=== PATIENT | male | born 1960 | race Caucasian/White ===

== ENCOUNTER 2018-03-31 12:47 | Inpatient (IN) ==
[2018-03-31] MEDS ORDERED: Naloxone 0.4 MG/ML INJ IVP PRN (17:21)
--- NOTE | 2018-03-31 19:31 | Internal Med History&Physical ---
Date of Encounter: 03/31/18 Time of Encounter: 17:00 Internal Medicine - H&P: HPI Chief complaint: Shortness of breath Admitted From: Intrahospital Transfer History of present illness: Patient is a 44-year-old male with past medical history significant for CKD stage III with chronic anemia, O2 dependent COPD who presented from [facility] due to increase and pleural effusions and vascular congestion on chest x-ray. Patient is a very poor historian and cannot give much history. Her labs done at [facility], patient found to have a BNP of 1023 with vascular congestion on chest x-ray in addition to vascular congestion. Patient will be treated for acute on chronic CHF in addition to increase pleural effusions. Past Med Surg Social Fam HX - Past Medical History Medical history: CHF, diabetes, myocardial infarction, renal disease, seizures, other Psychiatric history: no psych history - Past Surgical History Surgical History: non-contributory - Social History Smoking Status: Current some day smoker Smokeless Tobacco Status: No Alcohol use: none Drug use: none - Additional Family History Additional family history: Noncontributory Internal Medicine - H&P: Meds Allopurinol [Zyloprim 100 MG] 100 mg PO DAILY 03/31/18 [History] Atorvastatin [Lipitor] 10 mg PO HS 03/31/18 [History] HYDROcodone/Acet 5/325 mg [[place] 5-325 mg] 1 tab PO BID PRN 03/31/18 [History] Insulin ASPART [NovoLOG] 2 - 12 unit SQ TIDWM 03/31/18 [History] Insulin Degludec [Tresiba Flextouch U-200] 15 unit SQ DAILY 03/31/18 [History] Ipratropium/Albuterol Neb [Duoneb] 3 ml IH Q4HR PRN 03/31/18 [History] LORazepam Oral Conc [Ativan Oral Conc] 0.25 mg PO Q4H PRN 03/31/18 [History] LevETIRAcetam [Spritam] 500 mg PO BID 03/31/18 [History] MORPHINE SUL Oral CONC [Roxanol Oral Conc] 20 mg PO Q2H PRN 03/31/18 [History] Metoprolol Succinate [Toprol Xl] 25 mg PO DAILY 03/31/18 [History] Omeprazole 10 mg PO DAILY 03/31/18 [History] PHENobarbital [Phenobarbital] 16.2 mg PO HS 03/31/18 [History] Spironolactone [Aldactone] 12.5 mg PO DAILY 03/31/18 [History] Tamsulosin [Flomax] 0.4 mg PO BID 03/31/18 [History] 3 Allergy/AdvReac Type Severity Reaction Status Date / Time No Known Allergies Allergy Verified 03/31/18 16:53 All Systems PM: A 10-system review of systems was performed and is negative for pertinent findings except as documented above in the HPI. - Constitutional Vitals: Temp Pulse Resp BP Pulse Ox 97.8 F 97 9 150/79 98 03/31/18 16:21 03/31/18 16:21 03/31/18 16:21 03/31/18 16:21 03/31/18 17:37 General appearance: Present: A&O X 1 - Eye Eye exam: Present: normal appearance - ENT ENT exam: Present: mucous membranes moist - Respiratory Respiratory exam: Present: CTAB. Absent: accessory muscle use, rales, rhonchi, wheezes - Cardiovascular Cardiovascular exam: Present: RRR, +S1, +S2. Absent: diastolic murmur, gallop, rubs, systolic murmur - GI/Abdominal GI/Abdominal exam: Present: normal bowel sounds, soft, no peritoneal signs. Absent: distended, tenderness - Extremities Exam Extremities exam: Present: pedal edema - Expanded Lower Extremities Exam Lower Leg exam: Present: swelling - Neurological Exam Neurological exam: Present: oriented X3 - Psychiatric Psychiatric exam: Present: normal mood - Skin Skin exam: Present: normal color Internal Med - H&P Results - Labs Labs: Cardiac Enzymes 03/31/18 Range/Units 17:50 Troponin I 0.03 (< 0.04) ng/mL - Assessment and plan (1) Dyspnea Current Visit: No Status: Acute Assessment and plan: Patient with dyspnea which could be secondary to pleural effusion versus CHF. Management as below Qualifiers: Dyspnea type: shortness of breath Qualified Code(s): R06.02 - Shortness of breath; R06.00 - Dyspnea, unspecified; R06.01 - Orthopnea (2) Pleural effusion, left Current Visit: No Status: Acute Assessment and plan: Labs done at [facility], patient found to have a BNP of 1023 with vascular congestion on chest x-ray in addition to vascular congestion. Pulmonology has been consulted and appreciate recommendations (3) Congestive heart failure Current Visit: No Status: Acute Assessment and plan: Patient with elevated BNP of 1023 with vascular congestion on chest x-ray Will continue IV diuresis Qualifiers: Heart failure type: unspecified Heart failure chronicity: acute on chronic Qualified Code(s): I50.9 - Heart failure, unspecified (4) CKD (chronic kidney disease) stage 3, GFR 30-59 ml/min Current Visit: Yes Status: Acute Assessment and plan: Will continue to monitor creatinine given IV diuresis (5) Anemia Current Visit: Yes Status: Acute Assessment and plan: Patient with history of chronic anemia Hemoglobin stable at 9.8 Continue to monitor Qualifiers: Chronic kidney disease stage: stage 3 (moderate) Qualified Code(s): N18.3 - Chronic kidney disease, stage 3 (moderate); D63.1 - Anemia in chronic kidney disease (6) DVT prophylaxis Current Visit: Yes Status: Acute Assessment and plan: Subcutaneous heparin - Time Spent With Patient Total time spent is greater than 50% in coordination of care (as documented) at patient's floor/unit and/or counseling patient:
[2018-03-31] MEDS: Furosemide 40 MG/4 ML VIAL IVP SCH (23:23)
[2018-03-31] MEDS: *HR* Heparin 5,000 UNIT/ML VIAL SQ SCH (23:24)
[2018-04-01 00:38] LABS: Basophils % 0.3 %; Hematocrit 30.6 % (37.5-50.1); Hemoglobin 10.2 g/dL (12.9-16.9); Immature Granulocytes % 1.3 % (0-4); Lymphocytes # 0.4 K/mcL (0.6-4.6); Lymphocytes % 5.8 %; Mean Corpuscular HGB Conc 33.3 g/dL (31.6-35.5); Mean Corpuscular Hemoglobin 30.6 pg (28.0-33.3); Mean Corpuscular Volume 91.9 fL (83.0-100.0); Mean Platelet Volume 12.2 fL (9.4-12.4); Monocytes # 0.2 K/mcL (0.0-1.3); Monocytes % 2.7 %; Platelet Count 249 K/mcL (140-400); Red Blood Count 3.33 M/mcL (4.19-5.50); Red Cell Distribution Width 15.8 % (11.5-14.5); Segmented Neutrophils % 89.9 %
[2018-04-01 00:53] LABS: Calcium 8.5 mg/dL (8.6-10.3); Potassium 6.1 mEq/L (3.5-5.1)
[2018-04-01] MEDS: Albuterol 2.5 MG/3 ML NEBULIZER IH PRN ×2 (05:03→13:36)
[2018-04-01] MEDS: *HR* Heparin 5,000 UNIT/ML VIAL SQ SCH ×3 (05:37→20:57)
[2018-04-01] MEDS ORDERED: Ipratropium/Albuterol Neb 3 ML IH PRN (09:34)
[2018-04-01] MEDS ORDERED: INSULIN DEGLUDEC 15 UNIT SQ SCH (09:45)
[2018-04-01] MEDS: Furosemide 40 MG/4 ML VIAL IVP SCH ×2 (10:46→18:13)
[2018-04-01] MEDS: Acetaminophen 325 MG TABLET PO PRN (10:46)
[2018-04-01] MEDS: Spironolactone 25 MG TABLET PO SCH (10:47)
[2018-04-01] MEDS: Metoprolol XL (24 HR) Succ 25 MG TAB.ER.24H PO SCH (10:47)
[2018-04-01] MEDS: levETIRAcetam 250 MG TABLET PO SCH ×2 (10:47→20:57)
[2018-04-01] MEDS ORDERED: *HR* Dextrose 50 % in Water (Syg) 50 ML SYRINGE IVP PRN (11:53)
[2018-04-01] MEDS ORDERED: Dextrose Gel 15 GM/37.5 ML TUBE PO PRN ×2 (11:53)
[2018-04-01] MEDS ORDERED: D5% in Water 1,000 ML IVC PRN (11:53)
[2018-04-01 12:15] LABS: Estimated Average Glucose 189 mg/dl; Hemoglobin A1C 8.2 %
[2018-04-01] MEDS: Ipratropium/Albuterol Neb 3 ML IH SCH ×3 (12:51→22:40)
[2018-04-01] MEDS: Insulin LISPRO 300 UNITS/3 ML VIAL SQ SCH ×4 (14:11→21:00)
[2018-04-01] MEDS: Insulin DETEMIR 100 UNIT/ML X5UNITS SQ SCH (14:11)
[2018-04-01] MEDS: OMEPRAZOLE 10 MG PO SCH (14:12)
--- NOTE | 2018-04-01 14:45 | Pulmonology Consult Note ---
Date of Encounter: 04/01/18 Time of Encounter: 11:00 Assessment and Plan (1) Acute and chronic respiratory failure with hypoxia Current Visit: Yes Status: Acute Patient with increased O2 supplementation and patient clinical presentation and lab profile more consistent with Acute on chronic CHF . (2) Congestive heart failure Current Visit: No Status: Acute Patient presenting with CHF not sure this is diastolic and systolic needs an ECHO to classify the type of hear failure . To continue diuresis as tolerated . Will need cardiology input for heart failure exacerbation . Qualifiers: Heart failure type: unspecified Heart failure chronicity: acute on chronic Qualified Code(s): I50.9 - Heart failure, unspecified (3) Pleural effusion due to CHF (congestive heart failure) Current Visit: Yes Status: Acute Patient has Bilateral pleural effusion most likely secondary to CHF gave option of Thoracentesis Vs Diuresis to patient he wants to try diuresis . Will hold off Thoracentesis for now will continue diuresis . Patient is not in respiratory distress or any significant V/Q mismatch no need of urgent thoracentesis for today . History of Present Illness Consult date: 04/01/18 Requesting physician: Bobby Partida Chief complaint: Shortness of breadth History of present illness: 57 year old male with past medical history significant for COPD , CHF is coming with increasing leg swelling with high BNP , patient is a poor historian not much history was taken per chart review he came from home with increased shortness of breadth with CXR shows increased intersitial markings with bilateral pleural effusion with high BNP admitted for management for Acute on chronic diastolic CHF with pleural effusion . Pulmonary was consulted for Bilateral pleural effusion . Past Med Surg Social Fam HX - Past Medical History Medical history: CHF, diabetes, myocardial infarction, renal disease, seizures, other Psychiatric history: no psych history - Past Surgical History Surgical History: non-contributory - Social History Smoking Status: Current some day smoker Smokeless Tobacco Status: No Alcohol use: none Drug use: none Medications and Allergies Allopurinol [Zyloprim 100 MG] 100 mg PO DAILY 03/31/18 [History] Atorvastatin [Lipitor] 10 mg PO HS 03/31/18 [History] HYDROcodone/Acet 5/325 mg [[place] 5-325 mg] 1 tab PO BID PRN 03/31/18 [History] Insulin ASPART [NovoLOG] 2 - 12 unit SQ TIDWM 03/31/18 [History] Insulin Degludec [Tresiba Flextouch U-200] 15 unit SQ DAILY 03/31/18 [History] Ipratropium/Albuterol Neb [Duoneb] 3 ml IH Q4HR PRN 03/31/18 [History] LORazepam Oral Conc [Ativan Oral Conc] 0.25 mg PO Q4H PRN 03/31/18 [History] LevETIRAcetam [Spritam] 500 mg PO BID 03/31/18 [History] MORPHINE SUL Oral CONC [Roxanol Oral Conc] 20 mg PO Q2H PRN 03/31/18 [History] Metoprolol Succinate [Toprol Xl] 25 mg PO DAILY 03/31/18 [History] Omeprazole 10 mg PO DAILY 03/31/18 [History] PHENobarbital [Phenobarbital] 16.2 mg PO HS 03/31/18 [History] Spironolactone [Aldactone] 12.5 mg PO DAILY 03/31/18 [History] Tamsulosin [Flomax] 0.4 mg PO BID 03/31/18 [History] 3 Allergy/AdvReac Type Severity Reaction Status Date / Time No Known Allergies Allergy Verified 03/31/18 16:53 All Systems: The ROS could not thoroughly obtained because of patient is a poor historian Physical Examination Vital Signs: Vital Signs, Last 4 Hours Temp Pulse Resp BP Pulse Ox 04/01/18 13:36 16 100 04/01/18 12:11 97.7 F 93 16 119/56 99 Auscultation: bilateral: diminished breath sounds Extremities: edema Results - Laboratory Findings CBC and BMP: 04/01/18 00:24 04/01/18 09:50 Abnormal lab findings: Abnormal lab results RBC 3.33 M/mcL (4.19-5.50) L 04/01/18 00:24 Hgb 10.2 g/dL (12.9-16.9) L 04/01/18 00:24 Hct 30.6 % (37.5-50.1) L 04/01/18 00:24 RDW 15.8 % (11.5-14.5) H 04/01/18 00:24 Lymphocytes # 0.4 K/mcL (0.6-4.6) L 04/01/18 00:24 Sodium 129 mEq/L (136-145) L 04/01/18 00:24 Potassium 5.6 mEq/L (3.5-5.1) H 04/01/18 09:50 Chloride 95 mEq/L (98-107) L 04/01/18 00:24 Carbon Dioxide 12 mEq/L (23-29) L 04/01/18 00:24 BUN 80 mg/dL (6-20) H 04/01/18 00:24 Creatinine 1.94 mg/dL (0.70-1.30) H 04/01/18 00:24 Est GFR ( Amer) 43 (> 60) L 04/01/18 00:24 Est GFR (Non-Af Amer) 36 (> 60) L 04/01/18 00:24 BUN/Creatinine Ratio 41 (6-26) H 04/01/18 00:24 Glucose 350 mg/dL (70-105) H 04/01/18 00:24 POC Glucose 358 mg/dL (70-99) H 04/01/18 12:09 Hemoglobin A1c 8.2 % (-5.6) H 04/01/18 00:24 Calculated Osmolality 306 (280-300) H 04/01/18 00:24 Calcium 8.5 mg/dL (8.6-10.3) L 04/01/18 00:24 - Clinical Findings Intake & Output: Intake & Output 03/31/18 04/01/18 04/01/18 23:59 07:59 15:59 Intake Total 480 / 480 720 / 720 Output Total 600 / 600 450 / 450 Balance -120 / -120 270 / 270 Weight 87.9 kg Consult Discharge Plan - Plan Referrals: NONE,PCP [Primary Care Provider] -
--- NOTE | 2018-04-01 18:08 | Internal Med Progress Note ---
Date of Encounter: 04/01/18 Time of Encounter: 13:07 - Assessment and plan (1) Dyspnea Current Visit: Yes Status: Inactive Assessment and plan: Improved. Likely secondary to pleural effusion versus CHF. Management as per below. Qualifiers: Dyspnea type: shortness of breath Qualified Code(s): R06.02 - Shortness of breath; R06.00 - Dyspnea, unspecified; R06.01 - Orthopnea (2) Congestive heart failure Current Visit: Yes Status: Acute Assessment and plan: Continue IV diuresis with IV lasix 40 mg BID. Monitor strict I&Os and daily weights. Will taper with improvement. May need cardiology consult in AM. Patient states that his breathing is "fine" today. Will monitor closely for signs of respiratory decompensation. Qualifiers: Heart failure type: unspecified Heart failure chronicity: acute on chronic Qualified Code(s): I50.9 - Heart failure, unspecified (3) Pleural effusion, left Current Visit: Yes Status: Acute Assessment and plan: Pulmonology consulted; appreciate input. Patient not interested in any invasive procedures at this time. Will continue conservative management with IV lasix as per above. Patient is in no respiratory distress at this time. Continue to monitor closely for decompensation. (4) CKD (chronic kidney disease) stage 3, GFR 30-59 ml/min Current Visit: Yes Status: Chronic Assessment and plan: Will continue to monitor creatinine given IV diuresis. See plan below. (5) Anemia Current Visit: Yes Status: Chronic Assessment and plan: Patient with history of chronic anemia. Hemoglobin stable at 10.2. No signs of bleeding at this time. Recheck CBC in AM. Continue to monitor. Qualifiers: Anemia type: due to chronic kidney disease Chronic kidney disease stage: stage 3 (moderate) Qualified Code(s): N18.3 - Chronic kidney disease, stage 3 (moderate); D63.1 - Anemia in chronic kidney disease (6) Advance directive discussed with patient Current Visit: Yes Status: Acute Assessment and plan: Patient wants DNR-CCA-DNI after discussion with me. We discussed all components of comfort care, and what we will and will not do if he arrests. He is awake, alert, oriented x 3, and having no confusion. I believe that he is capable of making decision to change code status. I will sign paperwork and change order in the chart. I will also consult palliative care in the morning; appreciate their input. (7) Hyperkalemia Current Visit: Yes Status: Acute Assessment and plan: Likely secondary to CKD. Given kayexalate 30 gram once. Will also improve from increased insulin dose as per below. Recheck BMP in AM. (8) Diabetes mellitus Current Visit: Yes Status: Acute Assessment and plan: With hyperglycemia currently. Likely poorly controlled Type II DM with CKD complication. Continue accuchecks and increased to HD SSI QID AC/HS. Continue home long-acting dose of levemir. 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 - Time Spent With Patient Total time spent is greater than 50% in coordination of care (as documented) at patient's floor/unit and/or counseling patient: 25 - 35 minutes - Subjective Interval history: Patient had no acute events overnight. He states that he is doing "good" today. He denies any chest pain, SOB, fever, chills, nausea, vomiting, or abdominal pain. Pain is well-controlled at this time. He has no complaints at this time. Patient wants DNR-CCA-DNI after discussion with me. We discussed all components of comfort care, and what we will and will not do if he arrests. He is awake, alert, oriented x 3, and having no confusion. I believe that he is capable of making decision to change code status. I will sign paperwork and change order in the chart. I will also consult palliative care in the morning. - Constitutional Vitals: Temp Pulse Resp BP Pulse Ox 97.5 F L 98 16 134/72 99 04/01/18 16:20 04/01/18 16:20 04/01/18 16:20 04/01/18 16:20 04/01/18 16:20 General appearance: Present: cooperative, A&O X 3, pleasant, no acute distress, answers questions appropriately - Respiratory Respiratory exam: Present: decreased breath sounds (At bilateral lung bases). Absent: accessory muscle use, rales, rhonchi, wheezes Additional comments: Normal WOB, coarse breath sounds - Cardiovascular Cardiovascular exam: Present: RRR, +S1, +S2. Absent: diastolic murmur, gallop, rubs, systolic murmur - GI/Abdominal GI/Abdominal exam: Present: normal bowel sounds, soft. Absent: distended, hepatomegaly, mass, splenomegaly, tenderness - Psychiatric Psychiatric exam: Present: normal affect, normal mood. Absent: agitated, anxious, depressed - Skin Skin exam: Present: dry, intact, warm. Absent: cyanosis, rash Internal Medicine: Result - Labs CBC & Chem 7: 04/01/18 00:24 04/01/18 09:50 Labs: Short CBC 04/01/18 Range/Units 00:24 WBC 6.7 (4.3-11.1) K/mcL Hgb 10.2 L (12.9-16.9) g/dL Hct 30.6 L (37.5-50.1) % Plt Count 249 (140-400) K/mcL Neutrophils # 6.0 (1.6-8.9) K/mcL BMP 04/01/18 04/01/18 00:24 09:50 Sodium 129 L Potassium 6.1 H 5.6 H Chloride 95 L Carbon Dioxide 12 L BUN 80 H Creatinine 1.94 H Glucose 350 H Calcium 8.5 L Cardiac Enzymes 03/31/18 04/01/18 04/01/18 Range/Units 17:50 00:24 06:20 Troponin I 0.03 < 0.03 0.03 (< 0.04) ng/mL Consult Discharge Plan - Plan Referrals: NONE,PCP [Primary Care Provider] -
[2018-04-01] MEDS ORDERED: Insulin LISPRO 300 UNITS/3 ML VIAL SQ SCH (21:00)
[2018-04-01] MEDS: PHENobarbital 32.4 MG TABLET PO SCH (22:07)
[2018-04-02 02:18] LABS: ABG Base Excess 2 mEq/L (-2 to 3); ABG HCO3 28 mEq/L (21-27); ABG Oxygen Saturation 97 % (95-98); ABG PCO2 46 mmHg (35-45); ABG PH 7.39 pH Units (7.32-7.45); ABG PO2 88 mmHg (85-104); ABG TCO2 29 mEq/L (20-26); Blood Gas FiO2 4.5 (1-15=lpm or21-100=%)
[2018-04-02] MEDS: Ipratropium/Albuterol Neb 3 ML IH SCH ×4 (04:04→22:22)
[2018-04-02 04:38] LABS: Basophils % 0.4 %; Eosinophils # 0.1 K/mcL (0.0-0.6); Hematocrit 26.1 % (37.5-50.1); Immature Granulocytes % 0.4 % (0-4); Lymphocytes # 0.5 K/mcL (0.6-4.6); Mean Corpuscular Hemoglobin 29.3 pg (28.0-33.3); Mean Corpuscular Volume 88.8 fL (83.0-100.0); Mean Platelet Volume 11.9 fL (9.4-12.4); Monocytes # 0.6 K/mcL (0.0-1.3); Monocytes % 12.2 %; Neutrophils # 3.8 K/mcL (1.6-8.9); Platelet Count 185 K/mcL (140-400); Red Blood Count 2.94 M/mcL (4.19-5.50); Red Cell Distribution Width 15.5 % (11.5-14.5)
[2018-04-02 04:39] LABS: Hemoglobin 8.6 g/dL (12.9-16.9)
[2018-04-02 04:56] LABS: Calcium 8.3 mg/dL (8.6-10.3); Potassium 3.2 mEq/L (3.5-5.1)
[2018-04-02] MEDS: Insulin LISPRO 300 UNITS/3 ML VIAL SQ SCH ×4 (08:22→21:46)
[2018-04-02] MEDS: Furosemide 40 MG/4 ML VIAL IVP SCH ×2 (08:37→16:57)
[2018-04-02] MEDS: Spironolactone 25 MG TABLET PO SCH (08:37)
[2018-04-02] MEDS: levETIRAcetam 250 MG TABLET PO SCH ×2 (08:37→21:21)
[2018-04-02] MEDS: Metoprolol XL (24 HR) Succ 25 MG TAB.ER.24H PO SCH (08:38)
[2018-04-02] MEDS: Insulin DETEMIR 100 UNIT/ML X5UNITS SQ SCH (08:38)
[2018-04-02] MEDS: OMEPRAZOLE 10 MG PO SCH (08:38)
--- NOTE | 2018-04-02 09:14 | Palliative - Consult Note ---
Date of Encounter: 04/02/18 Time of Encounter: 08:45 - Assessment and Plan (1) Pleural effusion, left Current Visit: Yes Status: Acute Assessment and plan: rx per hospitalist team pt does not wish any thoracentesis is ok with agressive medical therapy however (2) Goals of care, counseling/discussion Current Visit: Yes Status: Acute Assessment and plan: dnr cca dni I have reviewed the hospitalists not and agree with him completely about the patients wishes pt is clear dnr cca dni goal is to return home, he has no recall of any hospice discussion, and I am unable to reach Kateryna Davis [phone] at this time to get further history. He is a poor historian, but he is clear on what he wants and that he wants Ms Davis present for decision making we will continue to rty to reach. (3) CKD (chronic kidney disease) stage 3, GFR 30-59 ml/min Current Visit: Yes Status: Chronic Assessment and plan: watch, avoid nephrotoxic meds (4) Advance directive discussed with patient Current Visit: Yes Status: Acute Assessment and plan: see goals of care note, I agree with hospitalist note re code status that this is what the patient wants Palliative-CN HPI - Data of Consult Patient: new to practice Requesting Physician: Bobby Partida Primary Care Provider: ANIYAH NONE - Consult Narrative Palliative Care/Comfort Measures: Palliative care History of present illness: Mr. Moore is a 57 year old male who is a poor historian states he just got home form pr, and came to [facility] because he could not walk d/t sob. He tells me that he has needed o2 for the past couple of months but that he was able [place] get around the [place] walking. this has been getting harder recently however. He got home and could not walk which took him to er. He denies pain except in his l knee which is chronic, worse with ambulation better with rest and does not radiate. Deep ache moderate in nature (he does not give a # to it) Per Er note he was enrolled in hospice, he has no recall of anything like that. He states breathing is about the same, he is able to speak in full sentances withut any real problem. He is very clear on who he wants as mpoa Kateryna Davis [phone] ( who is not answering the phone right now) he endorses dnr cca dni status and is definite that he has discussed this with Kateryna as well. He is also against any tap of the effusion but he does desire rx for it CC: Bobby Mariaey sob Past Med Surg Social Fam HX - Past Medical History Medical history: CHF, diabetes, myocardial infarction, renal disease, seizures, other Psychiatric history: no psych history - Past Surgical History Surgical History: non-contributory - Social History Smoking Status: Current some day smoker Smokeless Tobacco Status: No Alcohol use: none Drug use: none Medications and Allergies Allopurinol [Zyloprim 100 MG] 100 mg PO DAILY 03/31/18 [History] Atorvastatin [Lipitor] 10 mg PO HS 03/31/18 [History] HYDROcodone/Acet 5/325 mg [[place] 5-325 mg] 1 tab PO BID PRN 03/31/18 [History] Insulin ASPART [NovoLOG] 2 - 12 unit SQ TIDWM 03/31/18 [History] Insulin Degludec [Tresiba Flextouch U-200] 15 unit SQ DAILY 03/31/18 [History] Ipratropium/Albuterol Neb [Duoneb] 3 ml IH Q4HR PRN 03/31/18 [History] LORazepam Oral Conc [Ativan Oral Conc] 0.25 mg PO Q4H PRN 03/31/18 [History] LevETIRAcetam [Spritam] 500 mg PO BID 03/31/18 [History] MORPHINE SUL Oral CONC [Roxanol Oral Conc] 20 mg PO Q2H PRN 03/31/18 [History] Metoprolol Succinate [Toprol Xl] 25 mg PO DAILY 03/31/18 [History] Omeprazole 10 mg PO DAILY 03/31/18 [History] PHENobarbital [Phenobarbital] 16.2 mg PO HS 03/31/18 [History] Spironolactone [Aldactone] 12.5 mg PO DAILY 03/31/18 [History] Tamsulosin [Flomax] 0.4 mg PO BID 03/31/18 [History] 3 Allergy/AdvReac Type Severity Reaction Status Date / Time No Known Allergies Allergy Verified 03/31/18 16:53 - Constitutional Constitutional ROS PAL: fatigue, no decreased appetite, no chills, no fever(s) - EENT Eyes: no discharge, no pain Ears: no ear discharge, no ear pain Ears, nose, mouth, throat: no mouth pain, no nasal congestion, no nasal discharge, no sore throat, no throat swelling - Cardiovascular Cardiovascular ROS: dyspnea on exertion, no chest pain, no chest pain at rest, no chest pain with activity, no rapid heart rate (but does have a pm/defib present ) - Respiratory Respiratory: cough, dyspnea on exertion, no pain on inspiration, no chest congestion, no excessive phlegm production - Gastrointestinal Gastrointestinal: no constipation, no diarrhea, no nausea, no vomiting (but did have some per er records) - Genitourinary Genitourinary ROS male: no urinary frequency, no urinary hesitancy, no urinary incontinence - Musculoskeletal Musculoskeletal ROS IM: arthralgias, joint swelling (leg swelling), no back pain - Integumentary ROS Integumentary: no sores, no unusual bruising, no wounds - Neurological Neurological ROS: no behavioral changes, no burning sensations, no confusion, no convulsions, no headache(s), no lack of coordination - Psychiatric Psychiatric general PM: no change in appetite, no homicidal ideation, no hopelessness, no suicidal ideation - Endocrine Additional comments: diabetes Palliative Care-Exam - Constitutional Vitals: Temp Pulse Resp BP Pulse Ox 98.9 F 89 16 131/77 100 04/02/18 07:20 04/02/18 07:20 04/02/18 07:20 04/02/18 07:20 04/02/18 07:20 General appearance: Present: no acute distress - Head Head Exam: Present: atraumatic, normal inspection - Eye Eye exam: Present: normal appearance - Respiratory Respiratory exam: Present: decreased breath sounds. Absent: chest wall tenderness (pm/defib noted) - Cardiovascular Cardiovascular exam: Present: RRR - GI/Abdominal Exam GI/Abdominal exam: Present: normal bowel sounds, soft. Absent: tenderness - Extremities Exam Extremities exam: Present: pedal edema (slight). Absent: tenderness - Neurological Exam Neurological exam: Present: alert, oriented X3 - Psychiatric Psychiatric exam: Present: normal affect, normal mood. Absent: agitated, anxious - Skin Skin exam: Present: dry, warm Internal Medicine - CN: Reslt - Labs CBC & Chem 7: 04/02/18 03:50 04/02/18 03:50 Labs: Short CBC 04/02/18 Range/Units 03:50 WBC 5.0 (4.3-11.1) K/mcL Hgb 8.6 L D (12.9-16.9) g/dL Hct 26.1 L (37.5-50.1) % Plt Count 185 (140-400) K/mcL Neutrophils # 3.8 (1.6-8.9) K/mcL BMP 04/01/18 04/02/18 09:50 03:50 Sodium 134 L Potassium 5.6 H 3.2 L D Chloride 100 Carbon Dioxide 27 BUN 77 H Creatinine 2.12 H Glucose 73 Calcium 8.3 L - ABG Interpretation ABG results: ABG ABG pH 7.39 pH Units (7.32-7.45) 04/02/18 02:14 ABG pCO2 46 mmHg (35-45) H 04/02/18 02:14 ABG pO2 88 mmHg (85-104) 04/02/18 02:14 ABG O2 Saturation 97 % (95-98) 04/02/18 02:14 Consult Discharge Plan - Plan Referrals: NONE,PCP [Primary Care Provider] - Palliative Quality Palliative Quality: Screen for Code Status: Yes, Screen for Goals of Care: Yes, Screen for Pain: Yes, If Pain Regimen Started, Initiate Bowel Regimen: Yes, Screen for Nausea/Vomitting: Yes Code Status: 03/31/18 17:21 Resuscitation Status: Active [RES] Routine Comment: Resuscitation Status: DNR-Comfort Care 04/01/18 18:00 DNR [Resuscitation Status: Active] [RES] Routine Comment: Paperwork in chart Resuscitation Status: [id number]
[2018-04-02] MEDS: *HR* Heparin 5,000 UNIT/ML VIAL SQ SCH ×3 (09:31→21:22)
[2018-04-02 10:30] LABS: Estimated Average Glucose 189 mg/dl; Hemoglobin A1C 8.2 %
[2018-04-02] MEDS ORDERED: *HR* LORazepam 2 MG/ML VIAL IVP STA (16:42)
[2018-04-02] MEDS: PHENobarbital 32.4 MG TABLET PO SCH (21:23)
--- NOTE | 2018-04-02 22:47 | Internal Med Progress Note ---
Date of Encounter: 04/02/18 Time of Encounter: 12:47 - Assessment and plan (1) Dyspnea Current Visit: Yes Status: Acute Assessment and plan: Still with some subjective dyspnea. No hypoxia. Anxiety may be playing a part , will try an one-time dose of ativan to see if it helps with sensation of dyspnea. Likely in part secondary to pleural effusion versus CHF, but this is clinically improving with good urine output. Management as per below. Qualifiers: Dyspnea type: shortness of breath Qualified Code(s): R06.02 - Shortness of breath; R06.00 - Dyspnea, unspecified; R06.01 - Orthopnea (2) Congestive heart failure Current Visit: Yes Status: Inactive Assessment and plan: Improving. Continue IV diuresis with IV lasix 40 mg BID. Monitor strict I&Os and daily weights. Will taper with improvement. May need cardiology consult if not improving. Will monitor closely for signs of respiratory decompensation. Qualifiers: Heart failure type: unspecified Heart failure chronicity: acute on chronic Qualified Code(s): I50.9 - Heart failure, unspecified (3) Pleural effusion, left Current Visit: Yes Status: Acute Assessment and plan: Pulmonology consulted; appreciate input. Patient not interested in any invasive procedures at this time. Will continue conservative management with IV lasix as per above. Patient is in no respiratory distress at this time. Continue to monitor closely for decompensation. (4) CKD (chronic kidney disease) stage 3, GFR 30-59 ml/min Current Visit: Yes Status: Chronic Assessment and plan: Will continue to monitor creatinine given IV diuresis. See plan below. (5) Anemia Current Visit: Yes Status: Chronic Assessment and plan: Patient with history of chronic anemia. Hemoglobin somewhat decreased to 8.6. No signs of bleeding at this time. Recheck CBC in AM. Continue to monitor. Qualifiers: Anemia type: due to chronic kidney disease Chronic kidney disease stage: stage 3 (moderate) Qualified Code(s): N18.3 - Chronic kidney disease, stage 3 (moderate); D63.1 - Anemia in chronic kidney disease (6) Advance directive discussed with patient Current Visit: Yes Status: Inactive Assessment and plan: Patient wants DNR-CCA-DNI after discussion with me. Palliative care consulted; appreciate input. Palliative care agrees with DNR-CCA-DNI. Plan to discuss hospice care with POA [id number]. (7) Hyperkalemia Current Visit: Yes Status: Acute Assessment and plan: Now a little low after correcting hyperglycemia. Give KCl 20 mg PO once. Recheck BMP in AM. (8) Diabetes mellitus Current Visit: Yes Status: Acute Assessment and plan: Hyperglycemia improved. Likely poorly controlled Type II DM with CKD complication. Continue accuchecks and increased to HD SSI QID AC/HS. Continue home long-acting dose of levemir. Qualifiers: Diabetes mellitus type: type 2 Diabetes mellitus long term care pharmacist insulin use: with senior care use Diabetes mellitus complication status: with kidney complications Diabetes mellitus complication detail: with chronic kidney disease Chronic kidney disease stage: stage 3 (moderate) Qualified Code(s): E11.22 - Type 2 diabetes mellitus with diabetic chronic kidney disease; N18.3 - Chronic kidney disease, stage 3 (moderate); Z79.4 - senior care (current) use of insulin (9) DVT prophylaxis Current Visit: Yes Status: Acute Assessment and plan: Continue SQ heparin. - Time Spent With Patient Total time spent is greater than 50% in coordination of care (as documented) at patient's floor/unit and/or counseling patient: less than 15 minutes - Subjective Interval history: Patient had no acute events overnight. He states that he is doing "good" today. Per nursing staff, he still is complaining of "SOB" even with 100% O2 sats on room air. We will continue supplemental oxygen for comfort. There seems to be an anxiety component, so will try ativan once to see if it helps with "SOB." He denies any chest pain, fever, chills, nausea, vomiting, or abdominal pain. Pain is well-controlled at this time. He has no complaints at this time. Patient confirms DNR-CCA-DNI again today. - Constitutional Vitals: Temp Pulse Resp BP Pulse Ox 98.7 F 93 16 117/72 98 04/02/18 20:16 04/02/18 20:16 04/02/18 22:24 04/02/18 20:16 04/02/18 22:24 General appearance: Present: cooperative, A&O X 3, pleasant, no acute distress, answers questions appropriately - Respiratory Respiratory exam: Present: CTAB. Absent: accessory muscle use, rales, rhonchi, wheezes Additional comments: Normal WOB - Cardiovascular Cardiovascular exam: Present: RRR, +S1, +S2. Absent: diastolic murmur, gallop, rubs, systolic murmur Additional comments: Trace BLE edema - GI/Abdominal GI/Abdominal exam: Present: normal bowel sounds, soft. Absent: distended, hepatomegaly, mass, splenomegaly, tenderness - Psychiatric Psychiatric exam: Present: normal affect, normal mood. Absent: agitated, anxious, depressed - Skin Skin exam: Present: dry, intact, warm. Absent: cyanosis, rash Internal Medicine: Result - Labs CBC & Chem 7: 04/02/18 03:50 04/02/18 03:50 Labs: Short CBC 04/02/18 Range/Units 03:50 WBC 5.0 (4.3-11.1) K/mcL Hgb 8.6 L D (12.9-16.9) g/dL Hct 26.1 L (37.5-50.1) % Plt Count 185 (140-400) K/mcL Neutrophils # 3.8 (1.6-8.9) K/mcL BMP 04/02/18 03:50 Sodium 134 L Potassium 3.2 L D Chloride 100 Carbon Dioxide 27 BUN 77 H Creatinine 2.12 H Glucose 73 Calcium 8.3 L - ABG Interpretation ABG results: ABG ABG pH 7.39 pH Units (7.32-7.45) 04/02/18 02:14 ABG pCO2 46 mmHg (35-45) H 04/02/18 02:14 ABG pO2 88 mmHg (85-104) 04/02/18 02:14 ABG O2 Saturation 97 % (95-98) 04/02/18 02:14 - VTE Documentation of Mechanical Device: Graduated compression elastic hosiery Consult Discharge Plan - Plan Instructions: How to Check Your Blood Sugar (GEN), Diabetic Foot Care (GEN), Diabetes Mellitus Type 2 in Adults (GEN), Meal Planning with the Plate Model ( GEN) Referrals: NONE,PCP [Primary Care Provider] -
[2018-04-03] MEDS: Ipratropium/Albuterol Neb 3 ML IH SCH ×4 (03:39→21:01)
[2018-04-03] MEDS: *HR* Heparin 5,000 UNIT/ML VIAL SQ SCH ×3 (04:57→21:27)
[2018-04-03 05:43] LABS: Basophils % 0.5 %; Eosinophils # 0.1 K/mcL (0.0-0.6); Eosinophils % 1.4 %; Hematocrit 28.5 % (37.5-50.1); Hemoglobin 9.5 g/dL (12.9-16.9); Immature Granulocytes % 0.9 % (0-4); Lymphocytes # 0.7 K/mcL (0.6-4.6); Lymphocytes % 11.5 %; Mean Corpuscular HGB Conc 33.3 g/dL (31.6-35.5); Mean Corpuscular Hemoglobin 30.5 pg (28.0-33.3); Mean Corpuscular Volume 91.6 fL (83.0-100.0); Mean Platelet Volume 11.8 fL (9.4-12.4); Monocytes # 0.5 K/mcL (0.0-1.3); Neutrophils # 4.3 K/mcL (1.6-8.9); Platelet Count 177 K/mcL (140-400); Red Blood Count 3.11 M/mcL (4.19-5.50); Red Cell Distribution Width 15.7 % (11.5-14.5); Segmented Neutrophils % 76.7 %
[2018-04-03 05:59] LABS: Calcium 8.2 mg/dL (8.6-10.3)
--- NOTE | 2018-04-03 06:58 | Electrocardiograph Report ---
[address] [address] Test Date: 2018-04-02 Pat Name: Addison Moore Department: 112 Room: 2A Gender: M Reports Analysis Manager: : 1960 Requested By: Bobby Partida Order Number: [id number] Reading MD: César Horn Measurements Intervals [place] Rate: 63 P: 52 NC: 176 QRS: 6 QRSD: 206 T: 11 QT: 569 QTc: 576 Interpretive Statements ELECTRONIC ATRIAL PACEMAKER LEFT BUNDLE BRANCH BLOCK PVC Electronically Signed On 04-03-2018 6:56:41 EDT by César Horn
[2018-04-03] MEDS: levETIRAcetam 250 MG TABLET PO SCH ×2 (08:42→21:27)
[2018-04-03] MEDS: Metoprolol XL (24 HR) Succ 25 MG TAB.ER.24H PO SCH (08:43)
[2018-04-03] MEDS: Spironolactone 25 MG TABLET PO SCH (08:43)
[2018-04-03] MEDS: Acetaminophen 325 MG TABLET PO PRN ×2 (08:44→18:29)
[2018-04-03] MEDS: Insulin LISPRO 300 UNITS/3 ML VIAL SQ SCH ×3 (08:45→21:22)
[2018-04-03] MEDS: Furosemide 40 MG/4 ML VIAL IVP SCH ×2 (08:45→18:29)
[2018-04-03] MEDS: Insulin DETEMIR 100 UNIT/ML X5UNITS SQ SCH (08:47)
--- NOTE | 2018-04-03 09:31 | Palliative Progress Note ---
Date of Encounter: 04/03/18 Time of Encounter: 09:00 - Assessment and plan (1) Dyspnea Current Visit: Yes Status: Acute Assessment and plan: Denies dyspnea during assessment. Continue oxygen therapy. Qualifiers: Dyspnea type: shortness of breath Qualified Code(s): R06.02 - Shortness of breath; R06.00 - Dyspnea, unspecified; R06.01 - Orthopnea (2) Pleural effusion, left Current Visit: Yes Status: Acute Assessment and plan: Continue to follow recommendations per hospitalist team. (3) CKD (chronic kidney disease) stage 3, GFR 30-59 ml/min Current Visit: Yes Status: Chronic Assessment and plan: BUN 71. Creatinine 2.06. Continue to monitor. Avoid nephrotoxic medications. (4) Goals of care, counseling/discussion Current Visit: Yes Status: Acute Assessment and plan: [facility] ([phone]). Patient was previously a hospice patient of [facility], due to increased anxiety and dyspnea while on hospice patient no longer wishes to be a hospice patient. Patient reports he is "okay" with home health coming to see him at home. [facility] requests [place] [facility] at discharge. Patient has home oxygen and portable oxygen through [facility]. 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 Patient has home hospital bed, previously provided by hospice, but [facility] hospice will not return [facility] phone calls so she is unaware if that will continue to remain in home. [facility] identifies continued need for home hospital bed. Requests to having "nothing to do with [facility] anymore." Palliative care will continue to follow patient for assistance in discharge planning. - Time Spent With Patient Total time spent is greater than 50% in coordination of care (as documented) at patient's floor/unit and/or counseling patient: - Subjective Interval history: Patient sitting up on side of bed with oxygen in mouth. Patient denies pain, anxiety, nausea, vomiting, or dyspnea at present time. Patient is alert and oriented times three. Patient reports he is planning to go home and is "okay" with home health at discharge. Patient reports already having home oxygen with concentrator and portable oxygen tank; however, is unsure of name of company. Patient reports that family will bring his home oxygen tank when going home. Patient's oxygen saturation is 95% on supplemental oxygen. No obvious signs of respiratory distress, shortness of breath, or anxiety at time of assessment. Appreciate Internal Medicine note showing some subjective dyspnea during yesterdays evaluation; denies during time of this assessment. - Constitutional Vitals: Abnormal lab results RBC 3.11 M/mcL (4.19-5.50) L 04/03/18 05:06 Hgb 9.5 g/dL (12.9-16.9) L 04/03/18 05:06 Hct 28.5 % (37.5-50.1) L 04/03/18 05:06 RDW 15.7 % (11.5-14.5) H 04/03/18 05:06 ABG pCO2 46 mmHg (35-45) H 04/02/18 02:14 ABG HCO3 28 mEq/L (21-27) H 04/02/18 02:14 ABG Total CO2 29 mEq/L (20-26) H 04/02/18 02:14 Sodium 135 mEq/L (136-145) L 04/03/18 05:06 Chloride 97 mEq/L (98-107) L 04/03/18 05:06 BUN 71 mg/dL (6-20) H 04/03/18 05:06 Creatinine 2.06 mg/dL (0.70-1.30) H 04/03/18 05:06 Est GFR ( Amer) 41 (> 60) L 04/03/18 05:06 Est GFR (Non-Af Amer) 33 (> 60) L 04/03/18 05:06 BUN/Creatinine Ratio 34 (6-26) H 04/03/18 05:06 Glucose 374 mg/dL (70-105) H 04/03/18 05:06 POC Glucose 259 mg/dL (70-99) H 04/02/18 23:44 Hemoglobin A1c 8.2 % (-5.6) H 04/01/18 18:22 Calculated Osmolality 316 (280-300) H 04/03/18 05:06 Calcium 8.2 mg/dL (8.6-10.3) L 04/03/18 05:06 General appearance: Present: cooperative, no acute distress - Head Head exam: Present: atraumatic, normal inspection - Eye Eye exam: Present: EOMI, normal appearance, PERRL Pupils: Present: normal accommodation, PERRL - ENT ENT exam: Present: mucous membranes dry, normal external ear exam - Neck Neck exam: Present: full ROM, normal inspection - Respiratory Respiratory exam: Present: CTAB. Absent: respiratory distress - Cardiovascular Cardiovascular exam: Present: RRR, +S1, +S2 - Expanded Cardiovascular Exam Peripheral pulses: 2+: Radial (L), Radial (R) - GI/Abdominal GI/Abdominal exam: Present: normal bowel sounds, soft. Absent: tenderness - Rectal Rectal exam: Present: deferred - Extremities Exam Extremities exam: Present: normal capillary refill, normal inspection. Absent: pedal edema - Neurological Exam Neurological exam: Present: alert, oriented X3, strengths equal and symetr throughout - Psychiatric Psychiatric exam: Present: normal affect, normal mood. Absent: anxious - Skin Skin exam: Present: dry, intact, normal color Palliative Quality Palliative Quality: Screen for Code Status: Yes, Screen for Goals of Care: Yes, Screen for Pain: Yes, If Pain Regimen Started, Initiate Bowel Regimen: Yes, Screen for Nausea/Vomitting: Yes Code Status: 03/31/18 17:21 Resuscitation Status: Active [RES] Routine Comment: Resuscitation Status: DNR-Comfort Care 04/01/18 18:00 DNR [Resuscitation Status: Active] [RES] Routine Comment: Paperwork in chart Resuscitation Status: [id number] - Labs CBC & Chem 7: 04/03/18 05:06 04/03/18 05:06 Labs: Laboratory Results - last 24 hr 04/01/18 04/01/18 04/02/18 18:22 19:04 04:43 WBC RBC Hgb Hct MCV MCH MCHC RDW Plt Count MPV Immature Gran % Seg Neutrophils % Lymphocytes % Monocytes % Eosinophils % Basophils % Neutrophils # Lymphocytes # Monocytes # Eosinophils # Basophils # Sodium Potassium Chloride Carbon Dioxide BUN Creatinine Est GFR ( Amer) Est GFR (Non-Af Amer) BUN/Creatinine Ratio Glucose POC Glucose 255 H 78 Est Mean Plasma Glucose 189 Hemoglobin A1c 8.2 H Calculated Osmolality Calcium 04/02/18 04/02/18 04/02/18 10:09 12:24 16:52 WBC RBC Hgb Hct MCV MCH MCHC RDW Plt Count MPV Immature Gran % Seg Neutrophils % Lymphocytes % Monocytes % Eosinophils % Basophils % Neutrophils # Lymphocytes # Monocytes # Eosinophils # Basophils # Sodium Potassium Chloride Carbon Dioxide BUN Creatinine Est GFR ( Amer) Est GFR (Non-Af Amer) BUN/Creatinine Ratio Glucose POC Glucose 219 H 195 H 150 H Est Mean Plasma Glucose Hemoglobin A1c Calculated Osmolality Calcium 04/02/18 04/02/18 04/03/18 20:22 23:44 05:06 WBC 5.6 RBC 3.11 L Hgb 9.5 L Hct 28.5 L MCV 91.6 MCH 30.5 MCHC 33.3 RDW 15.7 H Plt Count 177 MPV 11.8 Immature Gran % 0.9 Seg Neutrophils % 76.7 Lymphocytes % 11.5 Monocytes % 9.0 Eosinophils % 1.4 Basophils % 0.5 Neutrophils # 4.3 Lymphocytes # 0.7 Monocytes # 0.5 Eosinophils # 0.1 Basophils # 0.0 Sodium Potassium Chloride Carbon Dioxide BUN Creatinine Est GFR ( Amer) Est GFR (Non-Af Amer) BUN/Creatinine Ratio Glucose POC Glucose 162 H 259 H Est Mean Plasma Glucose Hemoglobin A1c Calculated Osmolality Calcium 04/03/18 05:06 WBC RBC Hgb Hct MCV MCH MCHC RDW Plt Count MPV Immature Gran % Seg Neutrophils % Lymphocytes % Monocytes % Eosinophils % Basophils % Neutrophils # Lymphocytes # Monocytes # Eosinophils # Basophils # Sodium 135 L Potassium 4.0 Chloride 97 L Carbon Dioxide 25 BUN 71 H Creatinine 2.06 H Est GFR ( Amer) 41 L Est GFR (Non-Af Amer) 33 L BUN/Creatinine Ratio 34 H Glucose 374 H POC Glucose Est Mean Plasma Glucose Hemoglobin A1c Calculated Osmolality 316 H Calcium 8.2 L - ABG Interpretation ABG results: ABG ABG pH 7.39 pH Units (7.32-7.45) 04/02/18 02:14 ABG pCO2 46 mmHg (35-45) H 04/02/18 02:14 ABG pO2 88 mmHg (85-104) 04/02/18 02:14 ABG O2 Saturation 97 % (95-98) 04/02/18 02:14 Consult Discharge Plan - Plan Instructions: How to Check Your Blood Sugar (GEN), Diabetic Foot Care (GEN), Diabetes Mellitus Type 2 in Adults (GEN), Meal Planning with the Plate Model ( GEN) Referrals: NONE,PCP [Primary Care Provider] -
--- NOTE | 2018-04-03 16:07 | Internal Med Progress Note ---
Date of Encounter: 04/03/18 Time of Encounter: 12:00 - Assessment and plan (1) Congestive heart failure Current Visit: Yes Status: Inactive Assessment and plan: Mostly diastolic CHF exacerbation No previous Echo's t review will obtain 2 D Echo cont IV lasix strict I & O Will start him on Coreg and If BP allows will start him on low dose ACEI Qualifiers: Heart failure type: unspecified Heart failure chronicity: acute on chronic Qualified Code(s): I50.9 - Heart failure, unspecified (2) Dyspnea Current Visit: Yes Status: Acute Assessment and plan: Due to CHF exacerbation and b/l Pleural effusion will repeat CXR today Pt agreed for thoracocentesis so IR consulted cont IV Lasix Qualifiers: Dyspnea type: shortness of breath Qualified Code(s): R06.02 - Shortness of breath; R06.00 - Dyspnea, unspecified; R06.01 - Orthopnea (3) Pleural effusion due to CHF (congestive heart failure) Current Visit: Yes Status: Acute Assessment and plan: Reviewed earlier CXR showed Rt > Lt pleural effusion Due to CHF IR consulted for thoracocentesis (4) CKD (chronic kidney disease) stage 3, GFR 30-59 ml/min Current Visit: Yes Status: Chronic Assessment and plan: Will continue to monitor creatinine given IV diuresis (5) Anemia Current Visit: Yes Status: Chronic Assessment and plan: Patient with history of chronic anemia stable HB for now Qualifiers: Anemia type: due to chronic kidney disease Chronic kidney disease stage: stage 3 (moderate) Qualified Code(s): N18.3 - Chronic kidney disease, stage 3 (moderate); D63.1 - Anemia in chronic kidney disease (6) DVT prophylaxis Current Visit: Yes Status: Acute Assessment and plan: Continue SQ heparin. (7) Advance directive discussed with patient Current Visit: Yes Status: Inactive Assessment and plan: DNR -CCA (8) Diabetes mellitus Current Visit: Yes Status: Acute Assessment and plan: BS are fluctuating Cont holding Levemire for now Cont ISS Qualifiers: Diabetes mellitus type: type 2 Diabetes mellitus long term care pharmacist insulin use: with long term care pharmacist use Diabetes mellitus complication status: with kidney complications Diabetes mellitus complication detail: with chronic kidney disease Chronic kidney disease stage: stage 3 (moderate) Qualified Code(s): E11.22 - Type 2 diabetes mellitus with diabetic chronic kidney disease; N18.3 - Chronic kidney disease, stage 3 (moderate); Z79.4 - terminal operator (current) use of insulin - Time Spent With Patient Total time spent is greater than 50% in coordination of care (as documented) at patient's floor/unit and/or counseling patient: - Subjective Interval history: Mr. Moore is a 44-year-old male with past medical history significant for CKD stage III with chronic anemia, O2 dependent COPD, CHF, HTN Dm2 and TX who presented from [facility] due to increase pleural effusions and vascular congestion on chest x-ray. Pt was admitted in the hospital and started him on IV Laisx. He states he is feeling little better today, however still has some SOB and HARDEN. Denied any CP. Currently on 3 lit O2 - Constitutional Vitals: Temp Pulse Resp BP Pulse Ox 97.9 F 98 20 132/73 98 04/03/18 11:26 04/03/18 11:26 04/03/18 11:26 04/03/18 11:26 04/03/18 11:26 General appearance: Present: cooperative, A&O X 3, answers questions appropriately - Head Head exam: Present: atraumatic, normal inspection - Neck Neck exam general surgery: Present: supple - Respiratory Respiratory exam: Present: decreased breath sounds, rales. Absent: respiratory distress, rhonchi, wheezes - Cardiovascular Cardiovascular exam: Present: RRR, +S1, +S2. Absent: tachycardia - GI/Abdominal GI/Abdominal exam: Present: normal bowel sounds, soft. Absent: rebound, rigid, tenderness - Extremities Exam Extremities exam: Present: pedal edema. Absent: calf tenderness, tenderness - Back Exam Back exam: Absent: CVA tenderness (L), CVA tenderness (R) - Neurological Exam Neurological exam: Present: alert, oriented X3 - Psychiatric Psychiatric exam: Present: anxious Internal Medicine: Result - Labs CBC & Chem 7: 04/03/18 05:06 04/03/18 05:06 Labs: Short CBC 04/03/18 Range/Units 05:06 WBC 5.6 (4.3-11.1) K/mcL Hgb 9.5 L (12.9-16.9) g/dL Hct 28.5 L (37.5-50.1) % Plt Count 177 (140-400) K/mcL Neutrophils # 4.3 (1.6-8.9) K/mcL BMP 04/03/18 05:06 Sodium 135 L Potassium 4.0 Chloride 97 L Carbon Dioxide 25 BUN 71 H Creatinine 2.06 H Glucose 374 H Calcium 8.2 L - ABG Interpretation ABG results: ABG ABG pH 7.39 pH Units (7.32-7.45) 04/02/18 02:14 ABG pCO2 46 mmHg (35-45) H 04/02/18 02:14 ABG pO2 88 mmHg (85-104) 04/02/18 02:14 ABG O2 Saturation 97 % (95-98) 04/02/18 02:14 - VTE Documentation of Mechanical Device: Graduated compression elastic hosiery Consult Discharge Plan - Plan Instructions: How to Check Your Blood Sugar (GEN), Diabetic Foot Care (GEN), Diabetes Mellitus Type 2 in Adults (GEN), Meal Planning with the Plate Model ( GEN) Referrals: NONE,PCP [Primary Care Provider] -
[2018-04-03] MEDS ORDERED: Perflutren Lipid Microsphere 1.3 ML in 0.9 % Sodium Chloride 8.7 ML IVP ONE (20:40)
[2018-04-03] MEDS: PHENobarbital 32.4 MG TABLET PO SCH (21:25)
[2018-04-03] MEDS ORDERED: *HR* HYDROcodone/Acet 5/325 mg TABLET PO ONE (22:00)
[2018-04-04] MEDS: Albuterol 2.5 MG/3 ML NEBULIZER IH PRN (01:30)
[2018-04-04] MEDS: Ipratropium/Albuterol Neb 3 ML IH SCH ×4 (04:39→21:49)
[2018-04-04] MEDS: *HR* Heparin 5,000 UNIT/ML VIAL SQ SCH ×3 (05:28→22:06)
[2018-04-04 06:48] LABS: Calcium 8.4 mg/dL (8.6-10.3); Magnesium 2.4 mg/dL (1.6-2.6); Potassium 3.9 mEq/L (3.5-5.1)
[2018-04-04] MEDS: Spironolactone 25 MG TABLET PO SCH ×2 (09:36→19:21)
[2018-04-04] MEDS: Acetaminophen 325 MG TABLET PO PRN (09:37)
[2018-04-04] MEDS: Insulin LISPRO 300 UNITS/3 ML VIAL SQ SCH ×5 (09:38→22:02)
[2018-04-04] MEDS: Furosemide 40 MG/4 ML VIAL IVP SCH (09:39)
[2018-04-04] MEDS: Metoprolol XL (24 HR) Succ 25 MG TAB.ER.24H PO SCH (09:40)
[2018-04-04] MEDS: levETIRAcetam 250 MG TABLET PO SCH ×2 (09:40→22:05)
[2018-04-04] MEDS: Insulin DETEMIR 100 UNIT/ML X5UNITS SQ SCH (09:56)
[2018-04-04] MEDS ORDERED: MORPHINE SUL Oral CONC 10 MG/0.5 ML ORAL.SYG SL PRN (11:05)
--- NOTE | 2018-04-04 13:03 | Palliative Progress Note ---
Date of Encounter: 04/04/18 Time of Encounter: 11:00 - Assessment and plan (1) Dyspnea Current Visit: Yes Status: Acute Assessment and plan: Patient with pleural effusions. Sats 98%. Awaiting IR consult for thoracentesis. - Duonebs - Nebulizers - Supplemental O2 - HOB up - Add ativan - add morphine for dyspnea Qualifiers: Dyspnea type: shortness of breath Qualified Code(s): R06.02 - Shortness of breath; R06.00 - Dyspnea, unspecified; R06.01 - Orthopnea (2) Pleural effusion due to CHF (congestive heart failure) Current Visit: Yes Status: Acute Assessment and plan: IR in process of thoracentesis. EF 15-20%. (3) Goals of care, counseling/discussion Current Visit: Yes Status: Acute Assessment and plan: Called [id number] Kateryna. She provided list of morphine and ativan from home. Discussed POC and pending Thoracentesis. Goal if for him to DC with HH in her care in [place]. Will add low dose Ativan for anxiety and morphine for dyspnea and comfort. - Time Spent With Patient Total time spent is greater than 50% in coordination of care (as documented) at patient's floor/unit and/or counseling patient: 25 - 35 minutes - Subjective Interval history: Sitting up at bedside. Anxious. Reports feeling SOB. Chart reviewed. - Constitutional Vitals: Abnormal lab results RBC 3.11 M/mcL (4.19-5.50) L 04/03/18 05:06 Hgb 9.5 g/dL (12.9-16.9) L 04/03/18 05:06 Hct 28.5 % (37.5-50.1) L 04/03/18 05:06 RDW 15.7 % (11.5-14.5) H 04/03/18 05:06 ABG pCO2 46 mmHg (35-45) H 04/02/18 02:14 ABG HCO3 28 mEq/L (21-27) H 04/02/18 02:14 ABG Total CO2 29 mEq/L (20-26) H 04/02/18 02:14 BUN 61 mg/dL (6-20) H 04/04/18 06:13 Creatinine 1.78 mg/dL (0.70-1.30) H 04/04/18 06:13 Est GFR ( Amer) 48 (> 60) L 04/04/18 06:13 Est GFR (Non-Af Amer) 40 (> 60) L 04/04/18 06:13 BUN/Creatinine Ratio 34 (6-26) H 04/04/18 06:13 Glucose 211 mg/dL (70-105) H 04/04/18 06:13 POC Glucose 268 mg/dL (70-99) H 04/04/18 06:56 Hemoglobin A1c 8.2 % (-5.6) H 04/01/18 18:22 Calculated Osmolality 312 (280-300) H 04/04/18 06:13 Calcium 8.4 mg/dL (8.6-10.3) L 04/04/18 06:13 - Head Head exam: Present: atraumatic, normal inspection - Eye Eye exam: Present: PERRL - Neck Neck exam: Present: normal inspection - Respiratory Respiratory exam: Present: decreased breath sounds - Expanded Respiratory Exam Location: decreased breath sounds: Left, Right, Upper, Lower - Cardiovascular Cardiovascular exam: Present: RRR, +S1, +S2 - GI/Abdominal GI/Abdominal exam: Present: soft - Extremities Exam Extremities exam: Present: tenderness Additional comments: bilateral tony hose on - Neurological Exam Neurological exam: Present: alert, oriented X3 - Psychiatric Psychiatric exam: Present: anxious Palliative Quality Palliative Quality: Screen for Code Status: Yes, Screen for Goals of Care: Yes, Screen for Pain: Yes, If Pain Regimen Started, Initiate Bowel Regimen: Yes, Screen for Nausea/Vomitting: Yes Code Status: 03/31/18 17:21 Resuscitation Status: Active [RES] Routine Comment: Resuscitation Status: DNR-Comfort Care 04/01/18 18:00 DNR [Resuscitation Status: Active] [RES] Routine Comment: Paperwork in chart Resuscitation Status: [id number] - Labs CBC & Chem 7: 04/03/18 05:06 04/04/18 06:13 Labs: Laboratory Results - last 24 hr 04/03/18 04/03/18 04/03/18 11:24 16:24 19:37 Sodium Potassium Chloride Carbon Dioxide BUN Creatinine Est GFR ( Amer) Est GFR (Non-Af Amer) BUN/Creatinine Ratio Glucose POC Glucose 304 H 70 194 H Calculated Osmolality Calcium Magnesium 04/04/18 04/04/18 06:13 06:56 Sodium 139 Potassium 3.9 Chloride 101 Carbon Dioxide 28 BUN 61 H Creatinine 1.78 H Est GFR ( Amer) 48 L Est GFR (Non-Af Amer) 40 L BUN/Creatinine Ratio 34 H Glucose 211 H POC Glucose 268 H Calculated Osmolality 312 H Calcium 8.4 L Magnesium 2.4 - Impressions Impressions Echocardiogram 04/03/18 10:51 Impressions: LVEF 15-20%. Definity echo contrast was used. There is no LV thrombus. Indeterminate diastolic function. Moderately dilated left ventricle. Mildly dilated RV with normal function. Bi-atrial enlargement. Mild-moderate mitral regurgitation. Moderate tricuspid regurgitation. Moderate-severe pulmonary hypertension. A device lead was visualized in the right atrium and right ventricle. Left Ventricular Wall Motion: Rest Echo Findings The apex, apical inferior, mid inferior, basal inferior, apical anterior, mid anterior, basal anterior, apical septal, mid inferior septal, basal inferior septal, apical lateral, mid anterior lateral, basal anterior lateral, mid anterior septal, mid inferior lateral, basal anterior septal and basal inferior lateral lucio were hypokinetic. Findings: Study Quality * Technically adequate exam. ECG Findings * Possibly sinus, with BBB. Left Ventricle * LVEF 15-20%. * Definity echo contrast was used. * There is no LV thrombus. * Indeterminate diastolic function. * Moderately dilated left ventricle. Right Ventricle * Mildly dilated RV with normal function. Left Atrium * Severely dilated left atrium. Right Atrium * Moderately dilated right atrium. Aortic Valve * No aortic regurgitation. * Leaflet morphology not optimally visualized. * Probably mildly thickened aortic valve leaflets. * No aortic stenosis. Mitral Valve * Normal mitral valve structure. * No mitral stenosis. * Mild-moderate mitral regurgitation. Tricuspid Valve * Tricuspid valve not well visualized. * Moderate tricuspid regurgitation. * Estimated RA pressure is 3 mmHg. * Estimated RVSP is 60 mmHg. * Moderate-severe pulmonary hypertension. Pulmonic Valve * Pulmonic valve is not well visualized. * No pulmonic stenosis. * No pulmonic regurgitation. Pulmonary Artery * Pulmonary artery not well visualized. Aorta * Normally sized aortic root. Pericardium * There is no pericardial effusion present. Device lead * A device lead was visualized in the right atrium and right ventricle. Interatrial Septum * No evidence of PFO by color Doppler. IVC * Normal IVC dimensions and inspiratory collapse. Chest X-Ray 04/03/18 16:02 IMPRESSION: Pulmonary edema with suspected congestive failure possibly superimposed upon COPD. D/ / Giovani Kamara MD / Giovani Kamara MD Interpreting Provider: Giovani Kamara MD - ABG Interpretation ABG results: ABG ABG pH 7.39 pH Units (7.32-7.45) 04/02/18 02:14 ABG pCO2 46 mmHg (35-45) H 04/02/18 02:14 ABG pO2 88 mmHg (85-104) 04/02/18 02:14 ABG O2 Saturation 97 % (95-98) 04/02/18 02:14 Consult Discharge Plan - Plan Instructions: How to Check Your Blood Sugar (GEN), Diabetic Foot Care (GEN), Diabetes Mellitus Type 2 in Adults (GEN), Meal Planning with the Plate Model ( GEN) Referrals: NONE,PCP [Primary Care Provider] -
--- NOTE | 2018-04-04 13:13 | IR Procedure Note ---
Date of procedure: 04/04/18 Consent Obtained: Verbal consent, Written consent Timeout: Correct patient and procedure verified, Correct site verified, Time out performed, Skin prep completed Local anesthetic: Lidocaine 1% Indications: Right pleural effusion Procedure Performed: Thoracentesis Was there an butcher's assistant present: No Site/Technique: Ultrasound guided right thoracentesis Results/Findings: Moderate pleural effusion Estimated blood loss (cc): 0 Complications: None; Tolerated procedure well Post Procedure Treatment Plan: Post procedure CXR pending Specimen: Moderate pleural fluid
[2018-04-04] MEDS ORDERED: Albumin 25% 25gram/100mL 25 GM/100 ML IV.SOLN IVPB ONE (13:21)
--- NOTE | 2018-04-04 16:09 | Electrocardiograph Report ---
[place] [id number] Test Date: 2018-04-04 Pat Name: Addison Moore Department: 112 Room: 2A44 Gender: M Support Manager: : 1960 Requested By: Althea Sanchez Order Number: [id number] Reading MD: Leesa Figueroa Measurements Intervals [place] Rate: 98 P: 58 OR: 203 QRS: -53 QRSD: 172 T: 105 QT: 414 QTc: 469 Interpretive Statements SINUS RHYTHM POSSIBLE LEFT ATRIAL ENLARGEMENT LEFT BUNDLE BRANCH BLOCK Electronically Signed On 04-04-2018 16:07:47 EDT by Leesa Figueroa
[2018-04-04 16:30] LABS: Glucose,Pleural Fluid 249 mg/dL (No Ref Range); LDH,Pleural Fluid 97 Units/L (No Ref Range); Total Protein,Pleural Fluid < 3.0 g/dL (No Ref Range)
[2018-04-04 16:48] LABS: Appearance of Pleural Fl Clear (Clear)
[2018-04-04 17:05] LABS: RBC,Pleural Fluid < 0.002 M/mcL
--- NOTE | 2018-04-04 17:51 | Internal Med Progress Note ---
Date of Encounter: 04/04/18 Time of Encounter: 14:00 - Assessment and plan (1) Syncope Current Visit: Yes Status: Acute Assessment and plan: Rapid response called earlier due to syncopal episode mostly due to vaso vagal reaction improved CXR showed improved pleural effusion EKG did not show any acute ischemic changes Gave 250cc fluid bolus and Albumin 25gm x 1 dose cont close monitoring Qualifiers: Encounter type: initial encounter Qualified Code(s): T67.1XXA - Heat syncope, initial encounter (2) Congestive heart failure Current Visit: Yes Status: Inactive Assessment and plan: Reviewed 2 D Echo - showed LVEF 15-20% Indeterminate diastolic function resumed Lasix strict I & O Pt is already on Metoprolol.. so will continue for now started on Lisinopril Cont Aldactone Qualifiers: Heart failure type: systolic Heart failure chronicity: acute on chronic Qualified Code(s): I50.23 - Acute on chronic systolic (congestive) heart failure (3) Dyspnea Current Visit: Yes Status: Acute Assessment and plan: Due to CHF exacerbation and b/l Pleural effusion s/p thoracocentesis Qualifiers: Dyspnea type: shortness of breath Qualified Code(s): R06.02 - Shortness of breath; R06.00 - Dyspnea, unspecified; R06.01 - Orthopnea (4) Pleural effusion due to CHF (congestive heart failure) Current Visit: Yes Status: Acute Assessment and plan: Reviewed earlier CXR showed Rt > Lt pleural effusion Due to CHF s/p thoracocentesis removed 1600cc fluid cont close monitoring sent for fluid analysis (5) CKD (chronic kidney disease) stage 3, GFR 30-59 ml/min Current Visit: Yes Status: Chronic Assessment and plan: Will continue to monitor creatinine given IV diuresis (6) Anemia Current Visit: Yes Status: Chronic Assessment and plan: Patient with history of chronic anemia stable HB for now Qualifiers: Anemia type: due to chronic kidney disease Chronic kidney disease stage: stage 3 (moderate) Qualified Code(s): N18.3 - Chronic kidney disease, stage 3 (moderate); D63.1 - Anemia in chronic kidney disease (7) DVT prophylaxis Current Visit: Yes Status: Acute Assessment and plan: Continue SQ heparin. (8) Advance directive discussed with patient Current Visit: Yes Status: Inactive Assessment and plan: DNR -CCA (9) Diabetes mellitus Current Visit: Yes Status: Acute Assessment and plan: BS are fluctuating Cont holding [place] for now Cont ISS Qualifiers: Diabetes mellitus type: type 2 Diabetes mellitus usp insulin use: with intermodal dispatcher use Diabetes mellitus complication status: with kidney complications Diabetes mellitus complication detail: with chronic kidney disease Chronic kidney disease stage: stage 3 (moderate) Qualified Code(s): E11.22 - Type 2 diabetes mellitus with diabetic chronic kidney disease; N18.3 - Chronic kidney disease, stage 3 (moderate); Z79.4 - manager long term care (current) use of insulin (10) Acute and chronic respiratory failure with hypoxia Current Visit: Yes Status: Acute Assessment and plan: Due to CHF exacerbation cont diuresis - Time Spent With Patient Total time spent is greater than 50% in coordination of care (as documented) at patient's floor/unit and/or counseling patient: - Subjective Interval history: Mr. Moore is a 44-year-old male with past medical history significant for CKD stage III with chronic anemia, O2 dependent COPD, CHF, HTN Dm2 and NV who presented from [place] [facility] due to increase pleural effusions and vascular congestion on chest x-ray. Pt was admitted in the hospital and started him on IV Laisx. Pt did go for bed side U/S guided thoracocentesis on rt side and removed 1600cc pleural fluid. Right after the procedure he became unresponsive, so [facility] called in. When I went to see him he is unresponsive, however is breathing comfortably on 3 lit O2, SPo 2 @ 98 and rest of the vitals are stable too. His accucheck @ 160. After 2 minutes later he woke up. Now he is alert, awake and O x 3. Denied any SOB. does c/o chronic Left letral chest wall pain. Denied any CP. - Constitutional Vitals: Temp Pulse Resp BP Pulse Ox 97.4 F L 98 18 147/81 98 04/04/18 06:47 04/04/18 06:47 04/04/18 14:47 04/04/18 06:47 04/04/18 14:47 General appearance: Present: cooperative, A&O X 3, answers questions appropriately - Head Head exam: Present: atraumatic, normal inspection - Neck Neck exam general surgery: Present: supple - Respiratory Respiratory exam: Present: decreased breath sounds, wheezes. Absent: rales, respiratory distress, rhonchi - Cardiovascular Cardiovascular exam: Present: RRR, +S1, +S2. Absent: tachycardia - GI/Abdominal GI/Abdominal exam: Present: normal bowel sounds, soft. Absent: rebound, rigid, tenderness - Extremities Exam Extremities exam: Present: pedal edema. Absent: calf tenderness, tenderness - Back Exam Back exam: Absent: CVA tenderness (L), CVA tenderness (R) - Neurological Exam Neurological exam: Present: alert, oriented X3 - Psychiatric Psychiatric exam: Present: depressed Internal Medicine: Result - Labs CBC & Chem 7: 04/03/18 05:06 04/04/18 06:13 Labs: BMP 04/04/18 06:13 Sodium 139 Potassium 3.9 Chloride 101 Carbon Dioxide 28 BUN 61 H Creatinine 1.78 H Glucose 211 H Calcium 8.4 L - ABG Interpretation ABG results: ABG ABG pH 7.39 pH Units (7.32-7.45) 04/02/18 02:14 ABG pCO2 46 mmHg (35-45) H 04/02/18 02:14 ABG pO2 88 mmHg (85-104) 04/02/18 02:14 ABG O2 Saturation 97 % (95-98) 04/02/18 02:14 - Impressions Impressions Echocardiogram 04/03/18 10:51 Impressions: LVEF 15-20%. Definity echo contrast was used. There is no LV thrombus. Indeterminate diastolic function. Moderately dilated left ventricle. Mildly dilated RV with normal function. Bi-atrial enlargement. Mild-moderate mitral regurgitation. Moderate tricuspid regurgitation. Moderate-severe pulmonary hypertension. A device lead was visualized in the right atrium and right ventricle. Left Ventricular Wall Motion: Rest Echo Findings The apex, apical inferior, mid inferior, basal inferior, apical anterior, mid anterior, basal anterior, apical septal, mid inferior septal, basal inferior septal, apical lateral, mid anterior lateral, basal anterior lateral, mid anterior septal, mid inferior lateral, basal anterior septal and basal inferior lateral lucio were hypokinetic. Findings: Study Quality * Technically adequate exam. ECG Findings * Possibly sinus, with BBB. Left Ventricle * LVEF 15-20%. * Definity echo contrast was used. * There is no LV thrombus. * Indeterminate diastolic function. * Moderately dilated left ventricle. Right Ventricle * Mildly dilated RV with normal function. Left Atrium * Severely dilated left atrium. Right Atrium * Moderately dilated right atrium. Aortic Valve * No aortic regurgitation. * Leaflet morphology not optimally visualized. * Probably mildly thickened aortic valve leaflets. * No aortic stenosis. Mitral Valve * Normal mitral valve structure. * No mitral stenosis. * Mild-moderate mitral regurgitation. Tricuspid Valve * Tricuspid valve not well visualized. * Moderate tricuspid regurgitation. * Estimated RA pressure is 3 mmHg. * Estimated RVSP is 60 mmHg. * Moderate-severe pulmonary hypertension. Pulmonic Valve * Pulmonic valve is not well visualized. * No pulmonic stenosis. * No pulmonic regurgitation. Pulmonary Artery * Pulmonary artery not well visualized. Aorta * Normally sized aortic root. Pericardium * There is no pericardial effusion present. Device lead * A device lead was visualized in the right atrium and right ventricle. Interatrial Septum * No evidence of PFO by color Doppler. IVC * Normal IVC dimensions and inspiratory collapse. Chest X-Ray 04/03/18 16:02 IMPRESSION: Pulmonary edema with suspected congestive failure possibly superimposed upon COPD. D/ / Giovani Kamara MD / Giovani Kamara MD Interpreting Provider: Giovani Kamara MD Thoracentesis Ultrasound 04/04/18 08:11 IMPRESSION: Successful ultrasound guided thoracentesis. D/ / Naun Guardado MD / Naun Guardado MD Interpreting Provider: Naun Guardado MD Chest X-Ray 04/04/18 13:11 IMPRESSION: 1. Status post right thoracentesis with improved effusion and lung base atelectasis. 2. No pneumothorax. 3. Stable mild left pleural effusion and basilar consolidation. 4. Stable mild interstitial changes suggesting edema. D/ / 04/04/2018 14:35:48 Juno Wolff MD / amaris Interpreting Provider: Juno Wolff MD - VTE Documentation of Mechanical Device: Graduated compression elastic hosiery Consult Discharge Plan - Plan Instructions: How to Check Your Blood Sugar (GEN), Diabetic Foot Care (GEN), Diabetes Mellitus Type 2 in Adults (GEN), Meal Planning with the Plate Model ( GEN) Referrals: NONE,PCP [Primary Care Provider] -
[2018-04-04] MEDS ORDERED: Furosemide 40 MG/4 ML VIAL ONE (17:56)
[2018-04-04] MEDS: PHENobarbital 32.4 MG TABLET PO SCH (22:05)
[2018-04-05] MEDS: Ipratropium/Albuterol Neb 3 ML IH SCH ×6 (03:04→22:07)
[2018-04-05] MEDS: *HR* LORazepam Oral Conc 2 MG/ML SL PRN (03:26)
[2018-04-05 05:15] LABS: Basophils % 0.5 %; Eosinophils # 0.1 K/mcL (0.0-0.6); Eosinophils % 1.6 %; Hematocrit 28.2 % (37.5-50.1); Hemoglobin 8.8 g/dL (12.9-16.9); Immature Granulocytes % 0.3 % (0-4); Lymphocytes # 0.6 K/mcL (0.6-4.6); Mean Corpuscular HGB Conc 31.2 g/dL (31.6-35.5); Mean Corpuscular Hemoglobin 29.3 pg (28.0-33.3); Mean Platelet Volume 11.8 fL (9.4-12.4); Monocytes # 0.5 K/mcL (0.0-1.3); Monocytes % 7.4 %; Platelet Count 135 K/mcL (140-400); Segmented Neutrophils % 80.2 %
[2018-04-05 05:35] LABS: Albumin 3.1 g/dL (3.5-5.7); Albumin/Globulin Ratio 1.2 (1.1-2.2); Bilirubin,Total 0.5 mg/dL (0.3-1.0); Calcium 8.2 mg/dL (8.6-10.3); Globulin 2.6 g/dL (2.4-3.5); Magnesium 2.3 mg/dL (1.6-2.6); Potassium 3.7 mEq/L (3.5-5.1); Total Protein 5.7 g/dL (6.4-8.9)
[2018-04-05] MEDS: *HR* Heparin 5,000 UNIT/ML VIAL SQ SCH ×3 (05:54→22:32)
--- NOTE | 2018-04-05 09:02 | Palliative Progress Note ---
Date of Encounter: 04/05/18 Time of Encounter: 08:30 - Assessment and plan (1) Anxiety Current Visit: Yes Status: Acute Assessment and plan: SOB induced anxiety. Ativan PRN. Utilized one dose in past 24 hrs. Educate on POC and called family to visit patient to provide support. (2) Dyspnea Current Visit: Yes Status: Acute Assessment and plan: Patient s/p thoracentesis with removal 1600cc. Sats 98%. - Duonebs - Nebulizers - Supplemental O2 - Lasix - HOB up - Ativan - Morphine for dyspnea Qualifiers: Dyspnea type: shortness of breath Qualified Code(s): R06.02 - Shortness of breath; R06.00 - Dyspnea, unspecified; R06.01 - Orthopnea (3) Pleural effusion due to CHF (congestive heart failure) Current Visit: Yes Status: Acute Assessment and plan: EF 15-20%. S/P Thoracentesis with removal 1600cc. Patient reports SOB with diminished bilateral breath sounds. Sats 98% this AM utilizing Oxymask 3L. - Position for comfort - supplemental O2 - Morphine PRN - Lasix (4) Goals of care, counseling/discussion Current Visit: Yes Status: Acute Assessment and plan: Called [id number] Kateryna. She reports that she will visit sometime today. Will plan to hold bedside meeting to discuss patients frail state and need for hospice care despite her reluctance. Patient DNRCC - A, DNI. - Time Spent With Patient Total time spent is greater than 50% in coordination of care (as documented) at patient's floor/unit and/or counseling patient: less than 15 minutes - Subjective Interval history: Sitting up at bedside. Anxious. Reports feeling SOB. Events of yesterdays Rapid Response reviewed. Patient experienced syncopal episode post thoracentesis with removal of 1600cc. Awaiting arrival of family. - Constitutional Vitals: Abnormal lab results RBC 3.00 M/mcL (4.19-5.50) L 04/05/18 04:33 Hgb 8.8 g/dL (12.9-16.9) L 04/05/18 04:33 Hct 28.2 % (37.5-50.1) L 04/05/18 04:33 MCHC 31.2 g/dL (31.6-35.5) L 04/05/18 04:33 RDW 16.0 % (11.5-14.5) H 04/05/18 04:33 Plt Count 135 K/mcL (140-400) L 04/05/18 04:33 ABG pCO2 46 mmHg (35-45) H 04/02/18 02:14 ABG HCO3 28 mEq/L (21-27) H 04/02/18 02:14 ABG Total CO2 29 mEq/L (20-26) H 04/02/18 02:14 Carbon Dioxide 30 mEq/L (23-29) H 04/05/18 04:33 BUN 50 mg/dL (6-20) H 04/05/18 04:33 Creatinine 1.64 mg/dL (0.70-1.30) H 04/05/18 04:33 Est GFR ( Amer) 53 (> 60) L 04/05/18 04:33 Est GFR (Non-Af Amer) 44 (> 60) L 04/05/18 04:33 BUN/Creatinine Ratio 30 (6-26) H 04/05/18 04:33 Glucose 163 mg/dL (70-105) H 04/05/18 04:33 Hemoglobin A1c 8.2 % (-5.6) H 04/01/18 18:22 Calculated Osmolality 305 (280-300) H 04/05/18 04:33 Calcium 8.2 mg/dL (8.6-10.3) L 04/05/18 04:33 Alkaline Phosphatase 125 Units/L (34-104) H 04/05/18 04:33 Serum Total Protein 5.7 g/dL (6.4-8.9) L 04/05/18 04:33 Albumin 3.1 g/dL (3.5-5.7) L 04/05/18 04:33 - Head Head exam: Present: atraumatic, normal inspection - Eye Pupils: Present: PERRL - ENT ENT exam: Present: mucous membranes moist - Neck Neck exam: Present: normal inspection - Respiratory Respiratory exam: Present: decreased breath sounds - Expanded Respiratory Exam Location: decreased breath sounds: Left, Right, Lower - Cardiovascular Cardiovascular exam: Present: RRR, +S1, +S2 - Expanded Cardiovascular Exam Peripheral pulses: 1+: Femoral (L) PM, Femoral (R) PM, Posterior Tibialis (L), Posterior Tibialis (R), Dorsalis Pedis (L) PM, Dorsalis Pedis (R) PM, 2+: Carotid (L) PM, Carotid (R) PM, Radial (L), Radial (R) - GI/Abdominal GI/Abdominal exam: Present: normal bowel sounds, soft - Extremities Exam Extremities exam: Present: pedal edema - Neurological Exam Neurological exam: Present: alert, oriented X3 - Psychiatric Psychiatric exam: Present: anxious Palliative Quality Palliative Quality: Screen for Code Status: Yes, Screen for Goals of Care: Yes, Screen for Pain: Yes, If Pain Regimen Started, Initiate Bowel Regimen: Yes, Screen for Nausea/Vomitting: Yes Code Status: 03/31/18 17:21 Resuscitation Status: Active [RES] Routine Comment: Resuscitation Status: DNR-Comfort Care 04/01/18 18:00 DNR [Resuscitation Status: Active] [RES] Routine Comment: Paperwork in chart Resuscitation Status: [id number] - Labs CBC & Chem 7: 04/05/18 04:33 04/05/18 04:33 Labs: Laboratory Results - last 24 hr 04/04/18 04/04/18 04/04/18 06:56 11:28 12:56 WBC RBC Hgb Hct MCV MCH MCHC RDW Plt Count MPV Immature Gran % Seg Neutrophils % Lymphocytes % Monocytes % Eosinophils % Basophils % Neutrophils # Lymphocytes # Monocytes # Eosinophils # Basophils # Sodium Potassium Chloride Carbon Dioxide BUN Creatinine Est GFR ( Amer) Est GFR (Non-Af Amer) BUN/Creatinine Ratio Glucose POC Glucose 268 H 320 H Calculated Osmolality Calcium Magnesium Total Bilirubin AST ALT Alkaline Phosphatase Serum Total Protein Albumin Globulin Albumin/Globulin Ratio Pleural Fluid Volume Pleural Appearance Pleural pH Pleural RBC Pleural Tot Nuc Cell Pleural Neutrophils Pleural Band Neuts Pleural Eosinophils Pleural Basophils Pleural Lymphocytes % Pleural Monocytes % Pleural Other Cells % Pleural Total Protein Pleural Albumin < 1.5 Pleural LDH Pleural Glucose Pleural Cholesterol 04/04/18 04/04/18 04/04/18 12:56 12:56 13:16 WBC RBC Hgb Hct MCV MCH MCHC RDW Plt Count MPV Immature Gran % Seg Neutrophils % Lymphocytes % Monocytes % Eosinophils % Basophils % Neutrophils # Lymphocytes # Monocytes # Eosinophils # Basophils # Sodium Potassium Chloride Carbon Dioxide BUN Creatinine Est GFR ( Amer) Est GFR (Non-Af Amer) BUN/Creatinine Ratio Glucose POC Glucose 167 H Calculated Osmolality Calcium Magnesium Total Bilirubin AST ALT Alkaline Phosphatase Serum Total Protein Albumin Globulin Albumin/Globulin Ratio Pleural Fluid Volume 1650.0 Pleural Appearance Clear Pleural pH 7.50 Pleural RBC < 0.002 Pleural Tot Nuc Cell 265 Pleural Neutrophils 19.0 Pleural Band Neuts Test Not Performed Pleural Eosinophils Test Not Performed Pleural Basophils Test Not Performed Pleural Lymphocytes % 49.0 Pleural Monocytes % 2.0 Pleural Other Cells % 30.0 Pleural Total Protein < 3.0 Pleural Albumin Pleural LDH 97 Pleural Glucose 249 Pleural Cholesterol 27 04/04/18 04/04/18 04/04/18 15:45 17:54 17:58 WBC RBC Hgb Hct MCV MCH MCHC RDW Plt Count MPV Immature Gran % Seg Neutrophils % Lymphocytes % Monocytes % Eosinophils % Basophils % Neutrophils # Lymphocytes # Monocytes # Eosinophils # Basophils # Sodium Potassium Chloride Carbon Dioxide BUN Creatinine Est GFR ( Amer) Est GFR (Non-Af Amer) BUN/Creatinine Ratio Glucose POC Glucose 93 29 L* 42 L* Calculated Osmolality Calcium Magnesium Total Bilirubin AST ALT Alkaline Phosphatase Serum Total Protein Albumin Globulin Albumin/Globulin Ratio Pleural Fluid Volume Pleural Appearance Pleural pH Pleural RBC Pleural Tot Nuc Cell Pleural Neutrophils Pleural Band Neuts Pleural Eosinophils Pleural Basophils Pleural Lymphocytes % Pleural Monocytes % Pleural Other Cells % Pleural Total Protein Pleural Albumin Pleural LDH Pleural Glucose Pleural Cholesterol 04/04/18 04/04/18 04/05/18 18:38 19:06 04:33 WBC 6.2 RBC 3.00 L Hgb 8.8 L Hct 28.2 L MCV 94.0 MCH 29.3 MCHC 31.2 L RDW 16.0 H Plt Count 135 L MPV 11.8 Immature Gran % 0.3 Seg Neutrophils % 80.2 Lymphocytes % 10.0 Monocytes % 7.4 Eosinophils % 1.6 Basophils % 0.5 Neutrophils # 5.0 Lymphocytes # 0.6 Monocytes # 0.5 Eosinophils # 0.1 Basophils # 0.0 Sodium Potassium Chloride Carbon Dioxide BUN Creatinine Est GFR ( Amer) Est GFR (Non-Af Amer) BUN/Creatinine Ratio Glucose POC Glucose 64 L 93 Calculated Osmolality Calcium Magnesium Total Bilirubin AST ALT Alkaline Phosphatase Serum Total Protein Albumin Globulin Albumin/Globulin Ratio Pleural Fluid Volume Pleural Appearance Pleural pH Pleural RBC Pleural Tot Nuc Cell Pleural Neutrophils Pleural Band Neuts Pleural Eosinophils Pleural Basophils Pleural Lymphocytes % Pleural Monocytes % Pleural Other Cells % Pleural Total Protein Pleural Albumin Pleural LDH Pleural Glucose Pleural Cholesterol 04/05/18 04:33 WBC RBC Hgb Hct MCV MCH MCHC RDW Plt Count MPV Immature Gran % Seg Neutrophils % Lymphocytes % Monocytes % Eosinophils % Basophils % Neutrophils # Lymphocytes # Monocytes # Eosinophils # Basophils # Sodium 139 Potassium 3.7 Chloride 101 Carbon Dioxide 30 H BUN 50 H Creatinine 1.64 H Est GFR ( Amer) 53 L Est GFR (Non-Af Amer) 44 L BUN/Creatinine Ratio 30 H Glucose 163 H POC Glucose Calculated Osmolality 305 H Calcium 8.2 L Magnesium 2.3 Total Bilirubin 0.5 AST 18 ALT 14 Alkaline Phosphatase 125 H Serum Total Protein 5.7 L Albumin 3.1 L Globulin 2.6 Albumin/Globulin Ratio 1.2 Pleural Fluid Volume Pleural Appearance Pleural pH Pleural RBC Pleural Tot Nuc Cell Pleural Neutrophils Pleural Band Neuts Pleural Eosinophils Pleural Basophils Pleural Lymphocytes % Pleural Monocytes % Pleural Other Cells % Pleural Total Protein Pleural Albumin Pleural LDH Pleural Glucose Pleural Cholesterol - Impressions Impressions Echocardiogram 04/03/18 10:51 Impressions: LVEF 15-20%. Definity echo contrast was used. There is no LV thrombus. Indeterminate diastolic function. Moderately dilated left ventricle. Mildly dilated RV with normal function. Bi-atrial enlargement. Mild-moderate mitral regurgitation. Moderate tricuspid regurgitation. Moderate-severe pulmonary hypertension. A device lead was visualized in the right atrium and right ventricle. Left Ventricular Wall Motion: Rest Echo Findings The apex, apical inferior, mid inferior, basal inferior, apical anterior, mid anterior, basal anterior, apical septal, mid inferior septal, basal inferior septal, apical lateral, mid anterior lateral, basal anterior lateral, mid anterior septal, mid inferior lateral, basal anterior septal and basal inferior lateral lucio were hypokinetic. Findings: Study Quality * Technically adequate exam. ECG Findings * Possibly sinus, with BBB. Left Ventricle * LVEF 15-20%. * Definity echo contrast was used. * There is no LV thrombus. * Indeterminate diastolic function. * Moderately dilated left ventricle. Right Ventricle * Mildly dilated RV with normal function. Left Atrium * Severely dilated left atrium. Right Atrium * Moderately dilated right atrium. Aortic Valve * No aortic regurgitation. * Leaflet morphology not optimally visualized. * Probably mildly thickened aortic valve leaflets. * No aortic stenosis. Mitral Valve * Normal mitral valve structure. * No mitral stenosis. * Mild-moderate mitral regurgitation. Tricuspid Valve * Tricuspid valve not well visualized. * Moderate tricuspid regurgitation. * Estimated RA pressure is 3 mmHg. * Estimated RVSP is 60 mmHg. * Moderate-severe pulmonary hypertension. Pulmonic Valve * Pulmonic valve is not well visualized. * No pulmonic stenosis. * No pulmonic regurgitation. Pulmonary Artery * Pulmonary artery not well visualized. Aorta * Normally sized aortic root. Pericardium * There is no pericardial effusion present. Device lead * A device lead was visualized in the right atrium and right ventricle. Interatrial Septum * No evidence of PFO by color Doppler. IVC * Normal IVC dimensions and inspiratory collapse. Thoracentesis Ultrasound 04/04/18 08:11 IMPRESSION: Successful ultrasound guided thoracentesis. D/ / Naun Guardado MD / Naun Guardado MD Interpreting Provider: Naun Guardado MD Chest X-Ray 04/04/18 13:11 IMPRESSION: 1. Status post right thoracentesis with improved effusion and lung base atelectasis. 2. No pneumothorax. 3. Stable mild left pleural effusion and basilar consolidation. 4. Stable mild interstitial changes suggesting edema. D/ / 04/04/2018 14:35:48 Juno Wolff MD / amaris Interpreting Provider: Juno Wolff MD - ABG Interpretation ABG results: ABG ABG pH 7.39 pH Units (7.32-7.45) 04/02/18 02:14 ABG pCO2 46 mmHg (35-45) H 04/02/18 02:14 ABG pO2 88 mmHg (85-104) 04/02/18 02:14 ABG O2 Saturation 97 % (95-98) 04/02/18 02:14 Consult Discharge Plan - Plan Instructions: How to Check Your Blood Sugar (GEN), Diabetic Foot Care (GEN), Diabetes Mellitus Type 2 in Adults (GEN), Meal Planning with the Plate Model ( GEN) Referrals: NONE,PCP [Primary Care Provider] -
[2018-04-05] MEDS: Metoprolol XL (24 HR) Succ 25 MG TAB.ER.24H PO SCH ×2 (10:00→13:27)
[2018-04-05] MEDS: Spironolactone 25 MG TABLET PO SCH ×2 (10:00→13:27)
[2018-04-05] MEDS: levETIRAcetam 250 MG TABLET PO SCH ×3 (10:00→21:05)
[2018-04-05] MEDS: Furosemide 40 MG/4 ML VIAL IVP SCH ×3 (10:00→18:30)
[2018-04-05] MEDS: Insulin LISPRO 300 UNITS/3 ML VIAL SQ SCH ×5 (10:01→20:59)
[2018-04-05 10:19] LABS: ABG Base Excess 7 mEq/L (-2 to 3); ABG HCO3 31 mEq/L (21-27); ABG Oxygen Saturation 93 % (95-98); ABG PCO2 41 mmHg (35-45); ABG PH 7.49 pH Units (7.32-7.45); ABG PO2 62 mmHg (85-104); ABG TCO2 32 mEq/L (20-26)
[2018-04-05 10:52] LABS: Basophils % 0.5 %; Eosinophils # 0.1 K/mcL (0.0-0.6); Eosinophils % 1.5 %; Hematocrit 30.6 % (37.5-50.1); Hemoglobin 9.9 g/dL (12.9-16.9); Immature Granulocytes % 0.4 % (0-4); Lymphocytes # 0.8 K/mcL (0.6-4.6); Lymphocytes % 9.9 %; Mean Corpuscular HGB Conc 32.4 g/dL (31.6-35.5); Mean Corpuscular Hemoglobin 30.7 pg (28.0-33.3); Mean Corpuscular Volume 94.7 fL (83.0-100.0); Mean Platelet Volume 11.4 fL (9.4-12.4); Monocytes # 0.5 K/mcL (0.0-1.3); Monocytes % 6.5 %; Neutrophils # 6.2 K/mcL (1.6-8.9); Platelet Count 146 K/mcL (140-400); Red Blood Count 3.23 M/mcL (4.19-5.50); Segmented Neutrophils % 81.2 %
--- NOTE | 2018-04-05 10:57 | Event Note ---
Date of Encounter: 04/05/18 Time of Encounter: 10:35 Met Kateryna at bedside patients POA. Discussed transition to home hospice care. Kateryna consented and I called Haleigh at [facility] and provided referral information for home hospice care. Plan is for patient to transition home tomorrow.
[2018-04-05 11:10] LABS: Albumin 3.4 g/dL (3.5-5.7); Albumin/Globulin Ratio 1.4 (1.1-2.2); Bilirubin,Total 0.6 mg/dL (0.3-1.0); Calcium 8.5 mg/dL (8.6-10.3); Globulin 2.5 g/dL (2.4-3.5); Potassium 4.5 mEq/L (3.5-5.1); Total Protein 5.9 g/dL (6.4-8.9)
--- NOTE | 2018-04-05 16:20 | Internal Med Progress Note ---
Date of Encounter: 04/05/18 Time of Encounter: 10:00 - Assessment and plan (1) Syncope Current Visit: Yes Status: Acute Assessment and plan: mostly due to vaso vagal reaction improved CT of head ordered - radha ramsey changes reviewed ABG- Ph 7.49, PCo2 41 Po2 62 ammonia - 29 Mg 2.4 BUN / Cr - 49/1.63 CXR showed improved pleural effusion Unclear etiology mostly vaso vagal and due to severe deconditioning too Talked to pt and his family member Kateryna OWUSU ) about his condition She wants to take him home under hospice care again. But this time she wants to change it to our [facility] care Talked to our palliative care team..they are working on home hospice care. Qualifiers: Encounter type: initial encounter Qualified Code(s): T67.1XXA - Heat syncope, initial encounter (2) Acute and chronic respiratory failure with hypoxia Current Visit: Yes Status: Acute Assessment and plan: Due to CHF exacerbation cont diuresis (3) Congestive heart failure Current Visit: Yes Status: Inactive Assessment and plan: Reviewed 2 D Echo - showed LVEF 15-20% Indeterminate diastolic function resumed Lasix strict I & O Cont Metoprolol and Lisinopril Cont Aldactone Qualifiers: Heart failure type: systolic Heart failure chronicity: acute on chronic Qualified Code(s): I50.23 - Acute on chronic systolic (congestive) heart failure (4) Dyspnea Current Visit: Yes Status: Acute Assessment and plan: Due to CHF exacerbation and b/l Pleural effusion s/p thoracocentesis Qualifiers: Dyspnea type: shortness of breath Qualified Code(s): R06.02 - Shortness of breath; R06.00 - Dyspnea, unspecified; R06.01 - Orthopnea (5) Pleural effusion due to CHF (congestive heart failure) Current Visit: Yes Status: Acute Assessment and plan: Reviewed earlier CXR showed Rt > Lt pleural effusion Due to CHF s/p thoracocentesis removed 1600cc fluid cont close monitoring sent for fluid analysis (6) CKD (chronic kidney disease) stage 3, GFR 30-59 ml/min Current Visit: Yes Status: Chronic Assessment and plan: Will continue to monitor creatinine given IV diuresis (7) Anemia Current Visit: Yes Status: Chronic Assessment and plan: Patient with history of chronic anemia stable HB for now Qualifiers: Anemia type: due to chronic kidney disease Chronic kidney disease stage: stage 3 (moderate) Qualified Code(s): N18.3 - Chronic kidney disease, stage 3 (moderate); D63.1 - Anemia in chronic kidney disease (8) DVT prophylaxis Current Visit: Yes Status: Acute Assessment and plan: Continue SQ heparin. (9) Advance directive discussed with patient Current Visit: Yes Status: Inactive Assessment and plan: DNR -CCA (10) Diabetes mellitus Current Visit: Yes Status: Acute Assessment and plan: BS are fluctuating Cont holding [place] for now Cont ISS Qualifiers: Diabetes mellitus type: type 2 Diabetes mellitus joint terminal attack controller insulin use: with retirement use Diabetes mellitus complication status: with kidney complications Diabetes mellitus complication detail: with chronic kidney disease Chronic kidney disease stage: stage 3 (moderate) Qualified Code(s): E11.22 - Type 2 diabetes mellitus with diabetic chronic kidney disease; N18.3 - Chronic kidney disease, stage 3 (moderate); Z79.4 - residential (current) use of insulin - Time Spent With Patient Total time spent is greater than 50% in coordination of care (as documented) at patient's floor/unit and/or counseling patient: - Subjective Interval history: Mr. Moore is a 44-year-old male with past medical history significant for CKD stage III with chronic anemia, O2 dependent COPD, CHF, HTN Dm2 and NV who presented from [facility] due to increase pleural effusions and vascular congestion on chest x-ray. Pt was admitted in the hospital and started him on IV Laisx. Pt did go for bed side U/S guided thoracocentesis on rt side and removed 1600cc pleural fluid. Pt happened to have another episode of unresponsive again this morning while he was taking to his family member Kateryna ( POA ). He woke up in few minutes. Now he is alert, awake and o to self. still looks confused. Denied any CP. Does have moderate SOB and HARDEN. He wants to go home. - Constitutional Vitals: Temp Pulse Resp BP Pulse Ox 97.9 F 101 15 124/85 96 04/05/18 11:33 04/05/18 11:33 04/05/18 15:22 04/05/18 11:33 04/05/18 15:22 General appearance: Present: cachectic, cooperative, A&O X 1, mild distress - Head Head exam: Present: atraumatic, normal inspection - Neck Neck exam general surgery: Present: supple - Respiratory Respiratory exam: Present: decreased breath sounds, rales, respiratory distress (mild). Absent: rhonchi, wheezes - Cardiovascular Cardiovascular exam: Present: RRR, +S1, +S2. Absent: tachycardia - GI/Abdominal GI/Abdominal exam: Present: normal bowel sounds, soft. Absent: rebound, rigid, tenderness - Extremities Exam Extremities exam: Present: pedal edema. Absent: calf tenderness, tenderness - Back Exam Back exam: Absent: CVA tenderness (L), CVA tenderness (R) - Neurological Exam Neurological exam: Present: alert, altered - Psychiatric Psychiatric exam: Present: depressed Internal Medicine: Result - Labs CBC & Chem 7: 04/05/18 10:36 04/05/18 10:36 Labs: Short CBC 04/05/18 04/05/18 Range/Units 04:33 10:36 WBC 6.2 7.6 (4.3-11.1) K/mcL Hgb 8.8 L 9.9 L (12.9-16.9) g/dL Hct 28.2 L 30.6 L (37.5-50.1) % Plt Count 135 L 146 (140-400) K/mcL Neutrophils # 5.0 6.2 (1.6-8.9) K/mcL BMP 04/05/18 04/05/18 04:33 10:36 Sodium 139 140 Potassium 3.7 4.5 Chloride 101 100 Carbon Dioxide 30 H 32 H BUN 50 H 49 H Creatinine 1.64 H 1.63 H Glucose 163 H 262 H Calcium 8.2 L 8.5 L Liver Function 04/05/18 04/05/18 Range/Units 04:33 10:36 Total Bilirubin 0.5 0.6 (0.3-1.0) mg/dL AST 18 17 (13-39) Units/L ALT 14 14 (7-52) Units/L Alkaline Phosphatase 125 H 132 H (34-104) Units/L Albumin 3.1 L 3.4 L (3.5-5.7) g/dL - ABG Interpretation ABG results: ABG ABG pH 7.49 pH Units (7.32-7.45) H 04/05/18 10:15 ABG pCO2 41 mmHg (35-45) 04/05/18 10:15 ABG pO2 62 mmHg (85-104) L 04/05/18 10:15 ABG O2 Saturation 93 % (95-98) L 04/05/18 10:15 - Impressions Impressions Head CT 04/05/18 10:07 IMPRESSION: No acute intracranial abnormality. Diffuse atrophic changes with findings suggesting chronic microvascular ischemia progressed compared to 2013 D/ / José Miguel Montiel MD / José Miguel Montiel MD Interpreting Provider: José Miguel Montiel MD - VTE Documentation of Mechanical Device: Intermittent pneumatic compression device Consult Discharge Plan - Plan Instructions: How to Check Your Blood Sugar (GEN), Diabetic Foot Care (GEN), Diabetes Mellitus Type 2 in Adults (GEN), Meal Planning with the Plate Model ( GEN) Referrals: NONE,PCP [Primary Care Provider] -
[2018-04-05] MEDS: Acetaminophen 325 MG TABLET PO PRN (16:25)
[2018-04-05] MEDS: PHENobarbital 32.4 MG TABLET PO SCH (21:05)
[2018-04-06] MEDS: *HR* LORazepam Oral Conc 2 MG/ML SL PRN (01:46)
[2018-04-06] MEDS: Ipratropium/Albuterol Neb 3 ML IH SCH ×3 (03:43→15:40)
[2018-04-06] MEDS: *HR* Heparin 5,000 UNIT/ML VIAL SQ SCH ×2 (05:00→17:32)
[2018-04-06] MEDS: Furosemide 40 MG/4 ML VIAL IVP SCH ×2 (08:29→17:35)
[2018-04-06] MEDS: Insulin LISPRO 300 UNITS/3 ML VIAL SQ SCH ×3 (08:29→17:34)
[2018-04-06] MEDS: levETIRAcetam 250 MG TABLET PO SCH (08:30)
[2018-04-06] MEDS: Metoprolol XL (24 HR) Succ 25 MG TAB.ER.24H PO SCH (08:30)
[2018-04-06] MEDS: Spironolactone 25 MG TABLET PO SCH (08:31)
[2018-04-06] MEDS: Acetaminophen 325 MG TABLET PO PRN (08:37)
--- NOTE | 2018-04-06 09:17 | Palliative Progress Note ---
Date of Encounter: 04/06/18 Time of Encounter: 08:45 - Assessment and plan (1) Anxiety Current Visit: Yes Status: Acute Assessment and plan: SOB induced anxiety. Ativan PRN. Utilized one dose this AM. Educate on POC and discussed DC today to home with hospice care. (2) Dyspnea Current Visit: Yes Status: Acute Assessment and plan: Patient s/p thoracentesis with removal 1600cc. Sats 98%. - Duonebs - Nebulizers - Supplemental O2 - Lasix - HOB up - Ativan - Morphine for dyspnea Qualifiers: Dyspnea type: shortness of breath Qualified Code(s): R06.02 - Shortness of breath; R06.00 - Dyspnea, unspecified; R06.01 - Orthopnea (3) Pleural effusion due to CHF (congestive heart failure) Current Visit: Yes Status: Acute Assessment and plan: EF 15-20%. S/P Thoracentesis with removal 1600cc. Patient reports SOB with diminished bilateral breath sounds. Sats 98% this AM utilizing Oxymask 3L. - Position for comfort - supplemental O2 - Morphine PRN - Lasix (4) Goals of care, counseling/discussion Current Visit: Yes Status: Acute Assessment and plan: Called [id number] Kateryna. Patient to transition home with hospice care at OR. Patient OARRS report revealed recent prescriptions filled for Ativan and Morphine SL. Kateryna confirmed that patient has one bottle of each at the home that are unopened. Informed [facility] care, Dr. Stout, and Dr. Sanchez about home comfort meds are in place and doesn't require current prescription. State form completed for DNRCC. - Time Spent With Patient Total time spent is greater than 50% in coordination of care (as documented) at patient's floor/unit and/or counseling patient: less than 15 minutes - Subjective Interval history: Patient alert, oriented. Desires to transition home today with hospice care. Plan is once DME arrives at home to OR. Denies complaints. - Constitutional Vitals: Abnormal lab results RBC 3.23 M/mcL (4.19-5.50) L 04/05/18 10:36 Hgb 9.9 g/dL (12.9-16.9) L 04/05/18 10:36 Hct 30.6 % (37.5-50.1) L 04/05/18 10:36 RDW 16.0 % (11.5-14.5) H 04/05/18 10:36 ABG pH 7.49 pH Units (7.32-7.45) H 04/05/18 10:15 ABG pO2 62 mmHg (85-104) L 04/05/18 10:15 ABG HCO3 31 mEq/L (21-27) H 04/05/18 10:15 ABG Total CO2 32 mEq/L (20-26) H 04/05/18 10:15 ABG O2 Saturation 93 % (95-98) L 04/05/18 10:15 ABG Base Excess 7 mEq/L (-2 to 3) H 04/05/18 10:15 Carbon Dioxide 32 mEq/L (23-29) H 04/05/18 10:36 BUN 49 mg/dL (6-20) H 04/05/18 10:36 Creatinine 1.63 mg/dL (0.70-1.30) H 04/05/18 10:36 Est GFR ( Amer) 53 (> 60) L 04/05/18 10:36 Est GFR (Non-Af Amer) 44 (> 60) L 04/05/18 10:36 BUN/Creatinine Ratio 30 (6-26) H 04/05/18 10:36 Glucose 262 mg/dL (70-105) H 04/05/18 10:36 POC Glucose 294 mg/dL (70-99) H 04/05/18 18:59 Hemoglobin A1c 8.2 % (-5.6) H 04/01/18 18:22 Calculated Osmolality 312 (280-300) H 04/05/18 10:36 Calcium 8.5 mg/dL (8.6-10.3) L 04/05/18 10:36 Alkaline Phosphatase 132 Units/L (34-104) H 04/05/18 10:36 Serum Total Protein 5.9 g/dL (6.4-8.9) L 04/05/18 10:36 Albumin 3.4 g/dL (3.5-5.7) L 04/05/18 10:36 - Head Head exam: Present: atraumatic, normal inspection - Eye Eye exam: Present: PERRL - ENT ENT exam: Present: mucous membranes moist - Neck Neck exam: Present: normal inspection - Respiratory Respiratory exam: Present: decreased breath sounds Additional comments: O2 3L NC. Sats 98%. - Expanded Respiratory Exam Location: decreased breath sounds: Left, Right, Lower - Cardiovascular Cardiovascular exam: Present: RRR, +S1, +S2 - GI/Abdominal GI/Abdominal exam: Present: normal bowel sounds, soft - Extremities Exam Extremities exam: Present: pedal edema - Neurological Exam Neurological exam: Present: alert, oriented X3 - Psychiatric Psychiatric exam: Present: flat affect - Skin Skin exam: Present: pallor, warm Palliative Quality Palliative Quality: Screen for Code Status: Yes, Screen for Goals of Care: Yes, Screen for Pain: Yes, If Pain Regimen Started, Initiate Bowel Regimen: Yes, Screen for Nausea/Vomitting: Yes Code Status: 03/31/18 17:21 Resuscitation Status: Active [RES] Routine Comment: Resuscitation Status: DNR-Comfort Care 04/01/18 18:00 DNR [Resuscitation Status: Active] [RES] Routine Comment: Paperwork in chart Resuscitation Status: [id number] - Labs CBC & Chem 7: 04/05/18 10:36 04/05/18 10:36 Labs: Laboratory Results - last 24 hr 04/05/18 04/05/18 04/05/18 03:19 07:48 10:15 WBC RBC Hgb Hct MCV MCH MCHC RDW Plt Count MPV Immature Gran % Seg Neutrophils % Lymphocytes % Monocytes % Eosinophils % Basophils % Neutrophils # Lymphocytes # Monocytes # Eosinophils # Basophils # ABG pH 7.49 H ABG pCO2 41 ABG pO2 62 L ABG HCO3 31 H ABG Total CO2 32 H ABG O2 Saturation 93 L ABG Base Excess 7 H O2 Delivery Device Cannula Inspired O2 28.0 Sodium Potassium Chloride Carbon Dioxide BUN Creatinine Est GFR ( Amer) Est GFR (Non-Af Amer) BUN/Creatinine Ratio Glucose POC Glucose 175 H 167 H Calculated Osmolality Calcium Magnesium Total Bilirubin AST ALT Alkaline Phosphatase Ammonia Serum Total Protein Albumin Globulin Albumin/Globulin Ratio Stl C. diff Tox B Gene 04/05/18 04/05/18 04/05/18 10:36 10:36 10:36 WBC 7.6 RBC 3.23 L Hgb 9.9 L Hct 30.6 L MCV 94.7 MCH 30.7 MCHC 32.4 RDW 16.0 H Plt Count 146 MPV 11.4 Immature Gran % 0.4 Seg Neutrophils % 81.2 Lymphocytes % 9.9 Monocytes % 6.5 Eosinophils % 1.5 Basophils % 0.5 Neutrophils # 6.2 Lymphocytes # 0.8 Monocytes # 0.5 Eosinophils # 0.1 Basophils # 0.0 ABG pH ABG pCO2 ABG pO2 ABG HCO3 ABG Total CO2 ABG O2 Saturation ABG Base Excess O2 Delivery Device Inspired O2 Sodium 140 Potassium 4.5 Chloride 100 Carbon Dioxide 32 H BUN 49 H Creatinine 1.63 H Est GFR ( Amer) 53 L Est GFR (Non-Af Amer) 44 L BUN/Creatinine Ratio 30 H Glucose 262 H POC Glucose Calculated Osmolality 312 H Calcium 8.5 L Magnesium 2.4 Total Bilirubin 0.6 AST 17 ALT 14 Alkaline Phosphatase 132 H Ammonia Serum Total Protein 5.9 L Albumin 3.4 L Globulin 2.5 Albumin/Globulin Ratio 1.4 Stl C. diff Tox B Gene 04/05/18 04/05/18 04/05/18 10:36 11:30 16:38 WBC RBC Hgb Hct MCV MCH MCHC RDW Plt Count MPV Immature Gran % Seg Neutrophils % Lymphocytes % Monocytes % Eosinophils % Basophils % Neutrophils # Lymphocytes # Monocytes # Eosinophils # Basophils # ABG pH ABG pCO2 ABG pO2 ABG HCO3 ABG Total CO2 ABG O2 Saturation ABG Base Excess O2 Delivery Device Inspired O2 Sodium Potassium Chloride Carbon Dioxide BUN Creatinine Est GFR ( Amer) Est GFR (Non-Af Amer) BUN/Creatinine Ratio Glucose POC Glucose 274 H 221 H Calculated Osmolality Calcium Magnesium Total Bilirubin AST ALT Alkaline Phosphatase Ammonia 29 Serum Total Protein Albumin Globulin Albumin/Globulin Ratio Stl C. diff Tox B Gene 04/05/18 04/05/18 18:59 21:57 WBC RBC Hgb Hct MCV MCH MCHC RDW Plt Count MPV Immature Gran % Seg Neutrophils % Lymphocytes % Monocytes % Eosinophils % Basophils % Neutrophils # Lymphocytes # Monocytes # Eosinophils # Basophils # ABG pH ABG pCO2 ABG pO2 ABG HCO3 ABG Total CO2 ABG O2 Saturation ABG Base Excess O2 Delivery Device Inspired O2 Sodium Potassium Chloride Carbon Dioxide BUN Creatinine Est GFR ( Amer) Est GFR (Non-Af Amer) BUN/Creatinine Ratio Glucose POC Glucose 294 H Calculated Osmolality Calcium Magnesium Total Bilirubin AST ALT Alkaline Phosphatase Ammonia Serum Total Protein Albumin Globulin Albumin/Globulin Ratio Stl C. diff Tox B Gene Negative - Impressions Impressions Head CT 04/05/18 10:07 IMPRESSION: No acute intracranial abnormality. Diffuse atrophic changes with findings suggesting chronic microvascular ischemia progressed compared to 2013 D/ / José Miguel Montiel MD / José Miguel Montiel MD Interpreting Provider: José Miguel Montiel MD - ABG Interpretation ABG results: ABG ABG pH 7.49 pH Units (7.32-7.45) H 04/05/18 10:15 ABG pCO2 41 mmHg (35-45) 04/05/18 10:15 ABG pO2 62 mmHg (85-104) L 04/05/18 10:15 ABG O2 Saturation 93 % (95-98) L 04/05/18 10:15 Consult Discharge Plan - Plan Instructions: How to Check Your Blood Sugar (GEN), Diabetic Foot Care (GEN), Diabetes Mellitus Type 2 in Adults (GEN), Meal Planning with the Plate Model ( GEN) Referrals: NONE,PCP [Primary Care Provider] -
--- NOTE | 2018-04-06 11:48 | Event Note ---
Date of Encounter: 04/06/18 Time of Encounter: 11:15 Called [id number] Kateryna. Kateryna states that [employer] company was in route to obtain equipment from home. I called [facility] care to clarify that they had contract with [facility]. Haleigh verbalized that "Yes" a contract was in place. [employer] was called and equipment will stay in the home for patient. O2 and hospital bed in place. [facility] [employer] agency manager saw patient yesterday and completed admit. Patient will be DC'd to home per ambulance care.
--- NOTE | 2018-04-06 11:59 | Physician Discharge Referral ---
Home Health/Hosp Referral Info Transfer to: Home Health, Hospice Provider in Charge Post Discharge: PCP - Diagnosis (1) Syncope Status: Acute (2) Acute and chronic respiratory failure with hypoxia Status: Acute (3) Congestive heart failure Status: Inactive (4) Dyspnea Status: Acute (5) Pleural effusion due to CHF (congestive heart failure) Status: Acute (6) CKD (chronic kidney disease) stage 3, GFR 30-59 ml/min Status: Chronic (7) Anemia Status: Chronic (8) DVT prophylaxis Status: Acute (9) Advance directive discussed with patient Status: Inactive (10) Diabetes mellitus Status: Acute - Respiratory Orders Smoking Cessation: Smoking cessation has been advised. For more information, call the [place] Tobacco Quit Line at 7-810-HAVR-NOW. - Services Needed Following services are medically necessary services: Nursing, Home Health Aide - Transfer Medications Prescriptions: Furosemide [Lasix] 20 mg PO BID #60 tablet Lisinopril [Zestril] 5 mg PO DAILY #30 tablet Spironolactone [Aldactone] 25 mg PO DAILY #30 tablet Home Medications: Allopurinol [Zyloprim 100 MG] 100 mg PO DAILY 03/31/18 [History] Atorvastatin [Lipitor] 10 mg PO HS 03/31/18 [History] HYDROcodone/Acet 5/325 mg [[place] 5-325 mg] 1 tab PO BID PRN 03/31/18 [History] Ipratropium/Albuterol Neb [Duoneb] 3 ml IH Q4HR PRN 03/31/18 [History] LORazepam Oral Conc [Ativan Oral Conc] 0.25 mg PO Q4H PRN 03/31/18 [History] LevETIRAcetam [Spritam] 500 mg PO BID 03/31/18 [History] MORPHINE SUL Oral CONC [Roxanol Oral Conc] 20 mg PO Q2H PRN 03/31/18 [History] Metoprolol Succinate [Toprol Xl] 25 mg PO DAILY 03/31/18 [History] Omeprazole 10 mg PO DAILY 03/31/18 [History] PHENobarbital [Phenobarbital] 16.2 mg PO HS 03/31/18 [History] Tamsulosin [Flomax] 0.4 mg PO BID 03/31/18 [History] Furosemide [Lasix] 20 mg PO BID #60 tablet 04/06/18 [Rx] Insulin ASPART [NovoLOG] 4 unit SQ TIDWM #0 04/06/18 [Rx] Lisinopril [Zestril] 5 mg PO DAILY #30 tablet 04/06/18 [Rx] Spironolactone [Aldactone] 25 mg PO DAILY #30 tablet 04/06/18 [Rx] Allergies/Adverse Reactions: 3 Allergy/AdvReac Type Severity Reaction Status Date / Time No Known Allergies Allergy Verified 03/31/18 16:53 Certification: Further, I certify that my clinical findings support that this patient is homebound (i.e. absences from home require considerable and taxing effort and are for medical reasons or orthodox services or infrequently or short duration when for other reasons) because: Homebound Reason: Patient requires assistance of a person or device to safely leave home Attestation: My signature below is to certify that this patient is under my care and that I, or nurse practitioner, or a physician's assistant plant controller working with me, has a face-to -face encounter with this patient.
--- NOTE | 2018-04-06 12:03 | Discharge Summary ---
- NOTES TO OUTPATIENT PROVIDER Notes to Outpatient Provider: f/u with [facility] Orders not resulted at time of discharge: Pending orders 04/05/18 21:57 Culture,Stool [RM] Routine Date of Encounter: 04/06/18 Time of Encounter: 11:57 - Discharge Diagnosis (1) Acute and chronic respiratory failure with hypoxia Priority: Primary Status: Acute (2) Pleural effusion due to CHF (congestive heart failure) Priority: Primary Status: Acute (3) Syncope Priority: Secondary Status: Acute Qualifiers: Encounter type: initial encounter Qualified Code(s): T67.1XXA - Heat syncope, initial encounter (4) Congestive heart failure Priority: Primary Status: Inactive Qualifiers: Heart failure type: systolic Heart failure chronicity: acute on chronic Qualified Code(s): I50.23 - Acute on chronic systolic (congestive) heart failure (5) Dyspnea Priority: Secondary Status: Acute Qualifiers: Dyspnea type: shortness of breath Qualified Code(s): R06.02 - Shortness of breath; R06.00 - Dyspnea, unspecified; R06.01 - Orthopnea (6) CKD (chronic kidney disease) stage 3, GFR 30-59 ml/min Priority: Secondary Status: Chronic (7) Anemia Priority: Secondary Status: Chronic Qualifiers: Anemia type: due to chronic kidney disease Chronic kidney disease stage: stage 3 (moderate) Qualified Code(s): N18.3 - Chronic kidney disease, stage 3 (moderate); D63.1 - Anemia in chronic kidney disease (8) DVT prophylaxis Priority: Secondary Status: Acute (9) Advance directive discussed with patient Priority: Secondary Status: Inactive (10) Diabetes mellitus Priority: Secondary Status: Acute Qualifiers: Diabetes mellitus type: type 2 Diabetes mellitus director long term care insulin use: with director long term care use Diabetes mellitus complication status: with kidney complications Diabetes mellitus complication detail: with chronic kidney disease Chronic kidney disease stage: stage 3 (moderate) Qualified Code(s): E11.22 - Type 2 diabetes mellitus with diabetic chronic kidney disease; N18.3 - Chronic kidney disease, stage 3 (moderate); Z79.4 - watermaster (current) use of insulin Hospital course: Mr. Moore is a 44-year-old male with past medical history significant for CKD stage III with chronic anemia, O2 dependent COPD, CHF, HTN Dm2 and IN who presented from [facility] due to increase pleural effusions and vascular congestion on chest x-ray. Pt was admitted in the hospital and started him on IV Laisx. Pt did go for bed side U/S guided thoracocentesis on Rt side and removed 1600cc pleural fluid. Pt does have acute hypoxic resp failure due to CHF exacerbation. His 2 D Echo showed severe ischemic cardiomopathy with LVEF 15%. He does have severe physical deconditioning and had a couple of vaso vagal episodes too. Apparently he was under hospice care through [facility] before, however pt and family did not like their service so they pulled him off the hospice service. I talked to pt and his family Kateryna ( POJazzy ) who would like to take him home with [place] hospice care. So our palliative care team were contacted and arranged for home hospice care. Will d/ c him home under home hospice care today. - Time Spent with Patient Total time spent providing and/or coordinating discharge services: - Discharge Medications Prescriptions: Furosemide [Lasix] 20 mg PO BID #60 tablet Lisinopril [Zestril] 5 mg PO DAILY #30 tablet Spironolactone [Aldactone] 25 mg PO DAILY #30 tablet Home Medications: Allopurinol [Zyloprim 100 MG] 100 mg PO DAILY 03/31/18 [History] Atorvastatin [Lipitor] 10 mg PO HS 03/31/18 [History] HYDROcodone/Acet 5/325 mg [[place] 5-325 mg] 1 tab PO BID PRN 03/31/18 [History] Ipratropium/Albuterol Neb [Duoneb] 3 ml IH Q4HR PRN 03/31/18 [History] LORazepam Oral Conc [Ativan Oral Conc] 0.25 mg PO Q4H PRN 03/31/18 [History] LevETIRAcetam [Spritam] 500 mg PO BID 03/31/18 [History] MORPHINE SUL Oral CONC [Roxanol Oral Conc] 20 mg PO Q2H PRN 03/31/18 [History] Metoprolol Succinate [Toprol Xl] 25 mg PO DAILY 03/31/18 [History] Omeprazole 10 mg PO DAILY 03/31/18 [History] PHENobarbital [Phenobarbital] 16.2 mg PO HS 03/31/18 [History] Tamsulosin [Flomax] 0.4 mg PO BID 03/31/18 [History] Furosemide [Lasix] 20 mg PO BID #60 tablet 04/06/18 [Rx] Insulin ASPART [NovoLOG] 4 unit SQ TIDWM #0 04/06/18 [Rx] Lisinopril [Zestril] 5 mg PO DAILY #30 tablet 04/06/18 [Rx] Spironolactone [Aldactone] 25 mg PO DAILY #30 tablet 04/06/18 [Rx] Allergies/Adverse Reactions: 3 Allergy/AdvReac Type Severity Reaction Status Date / Time No Known Allergies Allergy Verified 03/31/18 16:53 Date of admission: 03/31/18 17:21 Primary care physician: PCP NONE Consults: 03/31/18 16:28 Consult to Physical Therapy [CONS] Routine Comment: Evaluate, develop and implement POC Reason for Consult: Evaluation for ECF Does patient have active BEDREST order?: No Is patient medically & hemodynamically stable?: No Consult to Polygraph Operator [CONS] Routine Reason for SW Consult: possible need for ECF 03/31/18 21:03 Consult to Nutrition [CONS] Routine Comment: Consulting Provider: NUTRITION Reason for Dietary Consult: MST Score 04/01/18 12:56 Consult to Palliative Care [CONS] Routine Comment: Consulting Provider: Palliative Care [facility] Reason for Consult: Evaluation for possible paliative/hospice needs Call Completed: No 04/01/18 18:13 Consult to Diabetes Education [CONS] Stat Comment: Reason for Consult: Diabetic Diet Education 04/02/18 08:08 Consult to Occupational Therapy [CONS] Routine Comment: Evaluate, develop and implement POC Reason for Consult: poss ecf, needs pre cert Does patient have active BEDREST order?: No Is patient medically & hemodynamically stable?: Yes - Constitutional Vitals: Temp Pulse Resp BP Pulse Ox 97.7 F 100 19 111/63 95 04/06/18 11:08 04/06/18 11:08 04/06/18 11:08 04/06/18 11:08 04/06/18 11:08 General appearance: Present: cachectic, cooperative, A&O X 1, mild distress - Head Head exam: Present: atraumatic, normal inspection - Respiratory Respiratory exam: Present: decreased breath sounds, rales. Absent: rhonchi, wheezes - Cardiovascular Cardiovascular exam: Present: RRR, +S1, +S2. Absent: tachycardia - GI/Abdominal GI/Abdominal exam: Present: normal bowel sounds, soft. Absent: rebound, rigid, tenderness - Extremities Exam Extremities exam: Present: pedal edema (trace). Absent: calf tenderness, tenderness - Neurological Exam Neurological exam: Present: alert, altered - Psychiatric Psychiatric exam: Present: depressed - Skin Skin exam: Absent: rash - Patient Status Disposition: Hospice - Home Condition: Fair Overall status at discharge: patient is back to baseline - Discharge Instructions Instructions: How to Check Your Blood Sugar (GEN), Diabetic Foot Care (GEN), Diabetes Mellitus Type 2 in Adults (GEN), Meal Planning with the Plate Model ( GEN) Follow Up With: NONE,PCP [Primary Care Provider] - - Diet and Activity Activity: increase activity as tolerated Diet: advance to your usual diet - VTE Documentation of Mechanical Device: Intermittent pneumatic compression device
[2018-04-06 15:25] VITALS: BP 108/69
== END 2018-04-06 18:46 | disposition hospice, home (50) | DRG 194 ==
LOC: 2ANU → SUATTDRO 17:21
PROVIDERS: ADMIT Hospitalist; ATTEND Family Medicine

== ENCOUNTER 2019-08-04 14:43 | Observation (INO) ==
[2019-08-04] MEDS ORDERED: Ondansetron ODT 4 MG TAB.RAPDIS SL PRN (15:22)
[2019-08-04] MEDS ORDERED: MOM Conc 10 ML UD.LIQ PO PRN (15:22)
[2019-08-04] MEDS ORDERED: Acetaminophen 325 MG TABLET PO PRN (15:22)
[2019-08-04] MEDS ORDERED: Naloxone 0.4 MG/ML INJ IVP PRN (15:22)
[2019-08-04] MEDS ORDERED: Mag Hydrox/Al Hydrox/Simeth 30 ML UDC PO PRN (15:22)
[2019-08-04] MEDS ORDERED: traZODone 50 MG TABLET PO PRN (15:32)
[2019-08-04] MEDS ORDERED: D5% in Water 1,000 ML IVC PRN (15:35)
[2019-08-04] MEDS ORDERED: *HR* Dextrose 50 % in Water (Syg) 50 ML SYRINGE IVP PRN (15:35)
[2019-08-04] MEDS ORDERED: Ipratropium/Albuterol Neb 3 ML IH PRN (15:35)
[2019-08-04] MEDS ORDERED: Dextrose Gel 15 GM/37.5 ML TUBE PO PRN ×2 (15:35)
--- NOTE | 2019-08-04 15:49 | Internal Med Progress Note ---
Hospitalist Progress Note - Encounter Date of Encounter: 08/04/19 Time of Encounter: 14:15 - Time Spent with Patient Total time spent is greater than 50% in coordination of care (as documented) at patient's floor/unit and/or counseling patient: Consult Discharge Plan - Plan Referrals: NONE,PCP [Primary Care Provider] -
--- NOTE | 2019-08-04 15:50 | Internal Med History&Physical ---
Date of Encounter: 08/04/19 Time of Encounter: 14:15 Internal Medicine - H&P: HPI Chief complaint: abnormal labs Admitted From: Intrahospital Transfer Plans for Post Hospital Care: Transfer Psych Facility History of present illness: Mr. Moore is a 58 year old male with hx of chronic systolic CHF and CKD 4 admitted from psych unit due to abnormal labs. Mr Moore presented to ED yesterday due to suicidal ideation. He was admitted to 1A for further treatment. Labs returned today and K was 5.9 and BUN 99 with creatinine of 3.55. He is dyspneic with minimal movement. He can't give a very good history. He knows his heart is not good but says that is why he has an AICD. Wants to have his kidneys "checked out." No CP. No fever or chills. Can't quantitate urine amount. Unsure if edema is worse. I brought up that he has been in hospice before - he says he is not anymore but does not know how long it has been. Very clear that "don't want no tubes." At the present time he is mildly dyspneic. Past Med Surg Social Fam HX - Past Medical History Medical history: atrial fibrillation, CHF, diabetes, myocardial infarction, renal disease, seizures, other Additional medical history: STOMACH ULCERS Psychiatric history: depression - Past Surgical History Surgical History: orthopedic, other (Diabetic foot infections with left great toe and left second toe amputations. Right index finger surgery.), pacemaker/AICD Additional surgical history: Left great toe, left second toe, right point finger, right middle order - Social History Smoking Status: Former smoker Smokeless Tobacco Status: No Alcohol use: none Drug use: none - Family History Mother Living Status: Hx Family Cardiac Disorders: Yes ([place]) Hx Family Endocrine Disorder: Yes (DM) Father Living Status: Hx Family Cardiac Disorders: Yes (RI) Hx Family Endocrine Disorder: Yes (DM) Internal Medicine - H&P: Meds Atorvastatin [Lipitor] 10 mg PO HS 03/31/18 [History] Metoprolol Succinate [Toprol Xl] 25 mg PO DAILY 03/31/18 [History] PHENobarbital [Phenobarbital] 16.2 mg PO HS 03/31/18 [History] Tamsulosin [Flomax] 0.4 mg PO BID 03/31/18 [History] Furosemide [Lasix] 20 mg PO BID #60 tablet 04/06/18 [Rx] Lisinopril [Zestril] 5 mg PO DAILY #30 tablet 04/06/18 [Rx] Insulin Degludec [Tresiba Flextouch U-200] 10 units SQ HS 09/17/18 [History] Insulin ASPART [NovoLOG] 0 unit SQ TIDWM 12/06/18 [History] LevETIRAcetam [Keppra] 500 mg PO BID 08/03/19 [History] Ranitidine HCl [Acid Line Technician] 150 mg PO BID 08/03/19 [History] Allergy/AdvReac Type Severity Reaction Status Date / Time No Known Allergies Allergy Verified 08/03/19 15:44 All Systems PM: A 10-system review of systems was performed and is negative for pertinent findings except as documented above in the HPI. - Constitutional Constitutional: fatigue, lethargy, malaise - EENT Eyes: no blurry vision, no loss of vision Ears: decreased hearing Nose, mouth and throat: dry mouth, no mouth pain - Cardiovascular Cardiovascular ROS IM: dyspnea, dyspnea on exertion, orthopnea, paroxysmal nocturnal dyspnea, no chest pain - Respiratory Respiratory: cough, dyspnea, dyspnea on exertion, no wheezing, no chest congestion - Gastrointestinal Gastrointestinal: no abdominal pain, no diarrhea, no melena, no nausea, no vomiting - Genitourinary Genitourinary ROS male: no difficulty urinating, no urinary frequency - Musculoskeletal Musculoskeletal ROS IM: arthralgias, no muscle weakness, no numbness - Integumentary Integumentary IM: no rash - Neurological Neurological ROS: abnormal gait, no confusion, no numbness - Psychiatric Psychiatric: auditory hallucinations, suicidal ideation, visual hallucinations - Endocrine Endocrine IM: no excessive sweating - Hematologic/Lymphatic Hematologic/Lymphatic: no easy bleeding - Allergic/Immunologic Allergic/Immunologic: no itchy eyes - Constitutional General appearance: Present: A&O X 3, answers questions appropriately Exam: See below - Head Head exam: Present: atraumatic, normocephalic - Eye Eye exam: Present: EOMI, conjuntiva pink - ENT ENT exam: Present: mucous membranes dry - Neck Neck exam general surgery: Present: supple. Absent: nuchal rigidity - Respiratory Respiratory exam: Present: decreased breath sounds, rales. Absent: rhonchi, wheezes - Cardiovascular Cardiovascular exam: Present: distant heart sounds, RRR - GI/Abdominal GI/Abdominal exam: Present: soft. Absent: tenderness - Extremities Exam Extremities exam: Present: pedal edema, warm. Absent: tenderness - Neurological Exam Neurological exam: Present: alert, oriented X3 - Skin Skin exam: Present: dry, warm. Absent: rash - Assessment and Plan (1) Hyperkalemia Current Visit: Yes Status: Acute Assessment and plan: Pt has hx of CKD 4. Admitted to 1A for suicidal ideation and found to have hyperkalemia due to worsening renal function. Place on tele. Check EKG. Kayexalate once today. Recheck. (2) CKD (chronic kidney disease) stage 4, GFR 15-29 ml/min Current Visit: Yes Status: Acute Assessment and plan: Pt has hx of CKD 4. Renal function worsening at this time. Will give cautious slow hydration with half NS with bicarb at 50ml/hr Recheck renal function in AM. (3) Diabetes mellitus Current Visit: No Status: Chronic Assessment and plan: Home insulin ordered with accuchecks and sliding scale coverage. 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 (5) Suicidal ideation Current Visit: No Status: Acute Assessment and plan: Pt in 1A due to hallucinations and suicidal ideation. Psych consult. Sitter with suicide precautions. (6) Anemia Current Visit: No Status: Chronic Assessment and plan: Appears to be at baseline at this time. Qualifiers: Anemia type: due to chronic kidney disease Chronic kidney disease stage: stage 4 (severe) Qualified Code(s): N18.4 - Chronic kidney disease, stage 4 (severe); D63.1 - Anemia in chronic kidney disease (7) HFrEF (heart failure with reduced ejection fraction) Current Visit: No Status: Chronic Assessment and plan: Pt has hx of chronic systolic heart failure. Lasix held due to worsening renal function. Lisinopril held today as well. Qualifiers: Heart failure chronicity: chronic Qualified Code(s): I50.22 - Chronic systolic (congestive) heart failure (8) Severe protein-calorie malnutrition Current Visit: No Status: Chronic Assessment and plan: Nutrition supplement - Time Spent With Patient Total time spent is greater than 50% in coordination of care (as documented) at patient's floor/unit and/or counseling patient:
[2019-08-04] MEDS: Sodium Bicarbonate 50 MEQ in 0.45 % Sodium Chloride 1,000 ML IVC SCH (17:18)
[2019-08-04] MEDS: levETIRAcetam 250 MG TABLET PO SCH (17:19)
[2019-08-04] MEDS: Insulin LISPRO 300 UNITS/3 ML VIAL SQ SCH ×2 (17:19→20:15)
[2019-08-04] MEDS: Insulin DETEMIR 100 UNIT/ML X5UNITS SQ SCH (20:13)
[2019-08-04] MEDS: Nitroglycerin 1 INCH/GM PACKET TP SCH (20:14)
[2019-08-05 03:24] LABS: Hemoglobin 7.5 g/dL (12.9-16.9)
[2019-08-05 03:26] LABS: Hematocrit 22.4 % (37.5-50.1); Immature Platelets 8.9 % (1.1-6.1); Mean Corpuscular HGB Conc 33.5 g/dL (31.6-35.5); Mean Corpuscular Hemoglobin 31.1 pg (28.0-33.3); Mean Corpuscular Volume 92.9 fL (83.0-100.0); Mean Platelet Volume 12.8 fL (9.4-12.4); Red Blood Count 2.41 M/mcL (4.19-5.50); Red Cell Distribution Width 16.4 % (11.5-14.5); White Blood Count 7.3 K/mcL (4.3-11.1)
[2019-08-05 03:47] LABS: BUN/Creatinine Ratio 28 (6-26); Blood Urea Nitrogen 91 mg/dL (6-20); Calcium 8.2 mg/dL (8.6-10.3); Carbon Dioxide 21 mEq/L (23-29); Chloride 102 mEq/L (98-107); Chol/HDL Ratio 2.3 (0-4.9); Cholesterol 79 mg/dL (< 200); Glucose 132 mg/dL (70-105); HDL Cholesterol 35 mg/dL (40-59); LDL Cholesterol,Calculated 29 mg/dL (0-99); Magnesium 2.3 mg/dL (1.6-2.6); Osmolality,Calculated 296 (280-300); Potassium 4.4 mEq/L (3.5-5.1); Sodium 128 mEq/L (136-145); Triglycerides 76 mg/dL (< 150); Troponin I < 0.03 ng/mL (< 0.04); eGFR For African Americans 24 (> 60); eGFR For Non-African Americans 20 (> 60)
[2019-08-05] MEDS: Nitroglycerin 1 INCH/GM PACKET TP SCH ×2 (05:41→09:14)
[2019-08-05] MEDS: levETIRAcetam 250 MG TABLET PO SCH ×2 (05:42→17:17)
--- NOTE | 2019-08-05 08:18 | Internal Med Progress Note ---
<[email or web address] M - Last Filed: 08/05/19 13:55> Hospitalist Progress Note - Encounter Date of Encounter: 08/05/19 Time of Encounter: 13:45 - Subjective Interval History: Patient was admitted for suicidal ideation, hyperkalemia. He is awake, alert, sitting in bed with nurse present at bedside. No acute events overnight. He continues to endorse some suicidal ideation but denies plan. He states that he would like to commit suicide because of his poor health. Reports that he lives with a friend at home who is supportive. States that his dyspnea has improved considerably. Denies cp, sob, dizziness, n/v, hallucinations. - Exam Vitals: Temp Pulse Resp BP Pulse Ox 98.1 F 78 16 98/62 100 08/05/19 03:01 08/05/19 03:01 08/05/19 03:01 08/05/19 03:01 08/05/19 03:01 Exam: Gen: Alert and oriented. Appears older than stated age. HEENT: EOMI, Mucus membranes moist. Cardiovascular: Normal S1 & S2, no murmurs, rubs, gallops. Pulse regular. Lungs: Normal breath sounds. No wheeze, rales, rhonchi. Abdomen: Soft, no tenderness. BS normoactive. Extremities: No deformity, no edema or tenderness, pulses symmetric. Neurological: CN grossly intact. No weakness or focal neuro deficit Psych: Endorses suicidal ideation. No plan. Appears sad, quiet, non-tearful. - Assessment and Plan (1) Hyperkalemia Current Visit: Yes Status: Acute Assessment and Plan: Pt with a history of CKD 4. He was found to have hyperkalemia secondary to worsening renal function. Asymptomatic at this time. EKG w/o significant changes. Repeat potassium down to 5.1 today. - Continue to monitor daily. - No need for additional Kayexalate at this time. - Consult nephrology. (2) CKD (chronic kidney disease) stage 4, GFR 15-29 ml/min Current Visit: Yes Status: Acute Assessment and Plan: Patient with history of CKD 4 and worsening renal function. Repeat BUN 82, creatinine of 2.87. - Hold lisinopril, lasix at this time. - Avoid nephrotoxic drugs. - Continue slow hydration with half NS and bicarb. - Nephro, palliative care consulted. - Recheck renal function in AM. (3) HFrEF (heart failure with reduced ejection fraction) Current Visit: No Status: Chronic Assessment and Plan: Patient with a history of chronic systolic heart failure with LVEF of 15-20%. - Continue to hold lasixs, lisinopril. - Nephro consulted. - Palliative care consult. (4) Suicidal ideation Current Visit: Yes Status: Acute Assessment and Plan: Patient with suicidal ideation w/o plan. No HI or psychosis. Psych was consulted, appreciate there assistance. Recommends continuation of Lexapro 20mg daily at this time. Pt consulted to social services technician. - Suicide precautions, sitter per protocol. - Possible abram-psych facility at discharge secondary to co-morbidities per psych. (5) Diabetes mellitus Current Visit: No Status: Chronic Assessment and Plan: Patient with history of diabetes. On home Tresiba, Novolog. - Continue basal-bolus insulin regimen. - Accuchecks ACHS, Q6 (6) Seizure disorder Current Visit: No Status: Chronic Assessment and Plan: Patient with history of chronic seizure disorder. Will continue keppra, phenobarbital at this time. - Suicide precautions. - Time Spent with Patient Total time spent is greater than 50% in coordination of care (as documented) at patient's floor/unit and/or counseling patient: Plan of Care Discussed with: nurse Internal Medicine: Result - Labs CBC & Chem 7: 08/05/19 09:55 08/05/19 09:55 Labs: Short CBC 08/05/19 Range/Units 02:30 WBC 7.3 (4.3-11.1) K/mcL Hgb 7.5 L (12.9-16.9) g/dL Hct 22.4 L (37.5-50.1) % Plt Count 82 L (140-400) K/mcL BMP 08/05/19 02:30 Sodium 128 L Potassium 4.4 D Chloride 102 Carbon Dioxide 21 L BUN 91 H Creatinine 3.21 H Glucose 132 H Calcium 8.2 L Cardiac Enzymes 08/04/19 08/04/19 08/05/19 Range/Units 18:13 23:56 02:30 Troponin I < 0.03 < 0.03 < 0.03 (< 0.04) ng/mL Consult Discharge Plan - Plan Referrals: NONE,PCP [Primary Care Provider] - <Jose Tripp - Last Filed: 08/05/19 15:16> Hospitalist Progress Note - Encounter Date of Encounter: 08/05/19 - Exam Vitals: Temp Pulse Resp BP Pulse Ox 97.9 F 74 16 105/56 100 08/05/19 10:56 08/05/19 10:56 08/05/19 10:56 08/05/19 10:56 08/05/19 10:56 - Assessment and Plan (1) Hyperkalemia Current Visit: Yes Status: Acute (2) CKD (chronic kidney disease) stage 4, GFR 15-29 ml/min Current Visit: Yes Status: Acute (3) Diabetes mellitus Current Visit: No Status: Chronic (4) Seizure disorder Current Visit: No Status: Chronic (5) Suicidal ideation Current Visit: Yes Status: Acute (6) Anemia Current Visit: No Status: Chronic (7) HFrEF (heart failure with reduced ejection fraction) Current Visit: No Status: Chronic (8) Severe protein-calorie malnutrition Current Visit: No Status: Chronic - Time Spent with Patient Total time spent is greater than 50% in coordination of care (as documented) at patient's floor/unit and/or counseling patient: Internal Medicine: Result - Labs CBC & Chem 7: 08/05/19 09:55 08/05/19 09:55 Labs: Short CBC 08/05/19 08/05/19 Range/Units 02:30 09:55 WBC 7.3 5.4 (4.3-11.1) K/mcL Hgb 7.5 L 7.5 L (12.9-16.9) g/dL Hct 22.4 L 22.1 L (37.5-50.1) % Plt Count 82 L 82 L (140-400) K/mcL Neutrophils # 3.7 (1.6-8.9) K/mcL BMP 08/05/19 08/05/19 02:30 09:55 Sodium 128 L 126 L Potassium 4.4 D 5.1 Chloride 102 101 Carbon Dioxide 21 L 24 BUN 91 H 82 H Creatinine 3.21 H 2.87 H Glucose 132 H 308 H Calcium 8.2 L 8.1 L Cardiac Enzymes 08/04/19 08/04/19 08/05/19 Range/Units 18:13 23:56 02:30 Troponin I < 0.03 < 0.03 < 0.03 (< 0.04) ng/mL Urine 08/05/19 Range/Units 14:10 Urine Color Yellow (Yellow) Urine Clarity Clear (Clear) Urine pH 6.0 (5.0-8.0) pH Units Ur Specific Midnight 1.014 (1.010-1.025) Urine Protein Negative (Neg-Trace) mg/dL Urine Glucose (UA) 100 H (Normal) mg/dL - Attending Attestation I examined this patient and my medical decision-making was reviewed with the Resident Physician on 08/05/19. I agree with the documented findings, dispos ition and treatment plan as described except to the extent set forth below. Mr Moore is currently in observation for renal failure and suicidal ideation. He remains oderate to high risk due to potential for worsening clinical status. Mr Moore is sitting up in bed. No fever or chills. Breathing about the same. Exam Alert. COmfortable. NC. EOMI. Mucus membranes dry. Neck supple. No tachycardia. No wheeze. Some edema. No rash. Plan Renal eval Supportive care Watch K level. Palliative consult. [facility] most [facility] go to [facility]. <Pk Michelle - Last Filed: 08/05/19 13:55> (3) HFrEF (heart failure with reduced ejection fraction) Qualifiers: Heart failure chronicity: chronic Qualified Code(s): I50.22 - Chronic systolic (congestive) heart failure (5) Diabetes mellitus Qualifiers: Diabetes mellitus type: type 2 Diabetes mellitus custodial insulin use: with custodial use Diabetes mellitus complication status: with kidney complications Diabetes mellitus complication detail: with chronic kidney disease Chronic kidney disease stage: stage 4 (severe) Qualified Code(s): E11.22 - Type 2 diabetes mellitus with diabetic chronic kidney disease; N18.4 - Chronic kidney disease, stage 4 (severe); Z79.4 - nursing home (current) use of insulin <Jose Tripp - Last Filed: 08/05/19 15:16> (3) Diabetes mellitus Qualifiers: Diabetes mellitus type: type 2 Diabetes mellitus custodial insulin use: with custodial use Diabetes mellitus complication status: with kidney complications Diabetes mellitus complication detail: with chronic kidney disease Chronic k idney disease stage: stage 4 (severe) Qualified Code(s): E11.22 - Type 2 diabetes mellitus with diabetic chronic kidney disease; N18.4 - Chronic kidney disease, stage 4 (severe); Z79.4 - nursing home (current) use of insulin (6) Anemia Qualifiers: Anemia type: due to chronic kidney disease Chronic kidney disease stage: stage 4 (severe) Qualified Code(s): N18.4 - Chronic kidney disease, stage 4 (severe); D63.1 - Anemia in chronic kidney disease (7) HFrEF (heart failure with reduced ejection fraction) Qualifiers: Heart failure chronicity: chronic Qualified Code(s): I50.22 - Chronic systolic (congestive) heart failure
--- NOTE | 2019-08-05 08:56 | Consult Note ---
Date of Encounter: 08/05/19 Time of Encounter: 08:55 Assessment & Recommendation (1) Depression Current visit: No Status: Acute Assessment & Recommendation: Patient continues to endorse suicidal ideation, though he denies overt depression this morning. He does state that he feels like his desire to end his life is related to him having been so ill recently. Recommendations: - Continue lexapro 20mg daily. May consider switching to cymbalta if patient does not have good therapeutic response. - Continue suicide precautions and sitter per primary team and unit protocol. - If patient is recommended for SNF/ECF placement at time of discharge, that facility will be able to manage safety concerns. If repeat psychiatric admission is indicated once medically stable, recommend placement in abram-psych facility due to medical comorbidities and poor overall functional status. Qualifiers: Depression Type: major depressive disorder Major depression recurrence: recurrent Active/Remission status: currently active Major depression episode severity: severe Psychotic features: with psychotic features Qualified Code(s): F33.3 - Major depressive disorder, recurrent, severe with psychotic symptoms (2) Suicidal ideation Current visit: Yes Status: Acute History of Present Illness Requesting Physician: Jose Tripp DO Reason for consult: SI; Admitted to medical floor from due to abnormal labs History of present illness: Mr. Moore is a 58 year old male with a history of atrial fibrillation, CHF, diabets, OR, CKD, seizures, anxiety, and depression who presented to the ED reporting suicidal ideation. Following medical clearance at [facility], patient was admitted to the 1A inpatient psychiatry unit at this facility yesterday. Patient was subsequently found to have multiple critical laboratory abnormalities, including POC glucose >600, potassium 5.9, and creatinine 3.55. He was subsequently admitted to the medical floor for management of these abnormalities. On evaluation this morning, patient reports that he came to the hospital due to wanting to end his life, but denies any plan by which to do so. He denies any symptoms of anxiety or depression, and states that he thinks his desire to end his life is related to having been ill recently. Of note, patient has been seen by palliative care during previous hospitalizations, and was discharged home with hospice after a prior admission. When asked about this, he states that he has not been under hospice care in the past. He denies any visual or auditory hallucinations, and denies homicidal ideation; however, he continues to endorse suicidal ideation. CC: Jose Tripp, DO Past Med Surg Social Fam HX - Past Medical History Medical history: atrial fibrillation, CHF, diabetes, myocardial infarction, renal disease, seizures, other - Past Psychiatric History Psychiatric history: Reports: depression, previous psychiatric hospitalization (Admitted to 1A on 08/04/2019) Family psychiatric history: No Family History of Suicide: None - Past Surgical History Surgical History: orthopedic, other (Diabetic foot infections with left great toe and left second toe amputations. Right index finger surgery.), pacemaker/AICD - Social History Smoking Status: Former smoker Smokeless Tobacco Status: No Alcohol use: none Drug use: none - Family History Mother Name: Makayla Moore Living Status: Hx Family Cardiac Disorders: Yes ([place]) Hx Family Endocrine Disorder: Yes (DM) Father Name: Paul Moore Living Status: Hx Family Cardiac Disorders: Yes (OR) Hx Family Endocrine Disorder: Yes (DM) Medications & Allergies Allergy/AdvReac Type Severity Reaction Status Date / Time No Known Allergies Allergy Verified 08/03/19 15:44 Review of Systems Constitutional: Reports: weakness. Denies: fever Eyes: Denies: eye pain, vision change Ears, Nose, Throat: Reports: hearing loss (chronic). Denies: ear pain, throat pain, dental pain, congestion Cardiovascular: Reports: dyspnea on exertion. Denies: chest pain Respiratory: Reports: dyspnea Gastrointestinal: Denies: abdominal pain, nausea, vomiting, diarrhea, constipation Genitourinary male: Reports: urgency, frequency Musculoskeletal: Reports: back pain, joint pain Neurological: Reports: weakness, abnormal gait Psychiatric: Reports: depression, suicidal ideation, hopelessness. Denies: anxiety, homicidal ideation, auditory hallucinations, visual hallucinations Endocrine: Denies: fatigue, heat or cold intolerance Hematologic/Lymphatic: Denies: easy bruising, lymphadenopathy Allergic/Immunologic: Denies: urticaria, itchy eyes Psychiatry Exam - Constitutional Vitals: Temp Pulse Resp BP Pulse Ox 98.0 F 90 16 115/64 100 08/05/19 08:18 08/05/19 08:18 08/05/19 08:18 08/05/19 08:18 08/05/19 08:18 General appearance: thin - Musculoskeletal Strength & Tone: normal for patient (no gross deficits on observation) - Psychiatric Patient Orientation: Yes Person, Yes Time, Yes Place Level of alertness: Alert Behavior: calm, cooperative Psychomotor activity: Normal Eye Contact: Maintains Eye Contact Affect description: full range Speech Volume: Soft/Quiet Speech pattern: spontaneous, appropriate, slowed Language & Vocabulary: consistent with education Thought Process: Intact Thought Content: Yes Suicidal ideation, No Homicidal ideation, No Overt delusions Perceptual Disturbances: No Auditory hallucinations, No Visual hallucinations Attention Span Ability: Capable of Focused Attention Memory Description: Grossly Intact Patient Reliability: Questionable Historian Fund of knowledge: Yes abstraction ability, Yes aware of current events Intelligence Estimate: Average Judgment: Poor Insight: None Results - Labs Labs: Laboratory Last Values WBC 7.3 K/mcL (4.3-11.1) 08/05/19 02:30 RBC 2.41 M/mcL (4.19-5.50) L 08/05/19 02:30 Hgb 7.5 g/dL (12.9-16.9) L 08/05/19 02:30 Hct 22.4 % (37.5-50.1) L 08/05/19 02:30 MCV 92.9 fL (83.0-100.0) 08/05/19 02:30 MCH 31.1 pg (28.0-33.3) 08/05/19 02:30 MCHC 33.5 g/dL (31.6-35.5) 08/05/19 02:30 RDW 16.4 % (11.5-14.5) H 08/05/19 02:30 Plt Count 82 K/mcL (140-400) L 08/05/19 02:30 MPV 12.8 fL (9.4-12.4) H 08/05/19 02:30 Immature Plt Fraction 8.9 % (1.1-6.1) H 08/05/19 02:30 Sodium 128 mEq/L (136-145) L 08/05/19 02:30 Potassium 4.4 mEq/L (3.5-5.1) D 08/05/19 02:30 Chloride 102 mEq/L (98-107) 08/05/19 02:30 Carbon Dioxide 21 mEq/L (23-29) L 08/05/19 02:30 BUN 91 mg/dL (6-20) H 08/05/19 02:30 Creatinine 3.21 mg/dL (0.70-1.30) H 08/05/19 02:30 Est GFR ( Amer) 24 (> 60) L 08/05/19 02:30 Est GFR (Non-Af Amer) 20 (> 60) L 08/05/19 02:30 BUN/Creatinine Ratio 28 (6-26) H 08/05/19 02:30 Glucose 132 mg/dL (70-105) H 08/05/19 02:30 Calculated Osmolality 296 (280-300) 08/05/19 02:30 Calcium 8.2 mg/dL (8.6-10.3) L 08/05/19 02:30 Magnesium 2.3 mg/dL (1.6-2.6) 08/05/19 02:30 Troponin I < 0.03 ng/mL (< 0.04) 08/05/19 02:30 Triglycerides 76 mg/dL (< 150) 08/05/19 02:30 Cholesterol 79 mg/dL (< 200) 08/05/19 02:30 LDL Cholesterol, Calc 29 mg/dL (0-99) 08/05/19 02:30 VLDL Cholesterol, Calc 15 mg/dL (< 31) 08/05/19 02:30 HDL Cholesterol 35 mg/dL (40-59) L 08/05/19 02:30 Cholesterol/HDL Ratio 2.3 (0-4.9) 08/05/19 02:30 Consult Discharge Plan - Plan Referrals: NONE,PCP [Primary Care Provider] - - Attending Attestation I examined this patient and my medical decision-making was reviewed with the Resident Physician. I agree with the documented findings, disposition and treatment plan as described except to the extent set forth below. Patient did very well from a mental health standpoint while he was on our unit. While he did endorse some suicidal ideations he did not have a specific plan and had no intent to carry through with them. He said they are more a function of his concerns about his limited medical and health and he is very friendly and cooperative. From our standpoint he can be continued on the Lexapro and his medical needs should take priority. He really would be best served in some sort of a longer term care facility such as SNF or other rehabilitation setting. We would be supportive of him being transferred to such a setting after he is medically stable where his mental health needs can continue to be taking care of. He does need to go back into an inpatient level of mental health care he would be better served in a geriatric unit. While he is only in his 50s he is very compromised and limited in how he can engage in services on our unit on 1A. Additionally he is vulnerable toward a more psychotic and aggressive patients. We will continue to monitor him during his hospitalization but if his mental state continues as it is presently at this time he would be fine from a psychiatric standpoint to go to some sort of long-term medical care facility.
[2019-08-05] MEDS: Metoprolol XL (24 HR) Succ 25 MG TAB.ER.24H PO SCH (09:13)
[2019-08-05] MEDS: Insulin LISPRO 300 UNITS/3 ML VIAL SQ SCH ×4 (09:14→20:10)
[2019-08-05 10:34] LABS: Basophils % 0.4 %; Mean Corpuscular Volume 92.9 fL (83.0-100.0); Red Cell Distribution Width 16.5 % (11.5-14.5)
[2019-08-05 10:36] LABS: Eosinophils # 0.1 K/mcL (0.0-0.6); Eosinophils % 1.9 %; Hematocrit 22.1 % (37.5-50.1); Hemoglobin 7.5 g/dL (12.9-16.9); Immature Granulocytes % 0.2 % (0-4); Lymphocytes # 1.3 K/mcL (0.6-4.6); Lymphocytes % 24.2 %; Mean Corpuscular HGB Conc 33.9 g/dL (31.6-35.5); Mean Corpuscular Hemoglobin 31.5 pg (28.0-33.3); Mean Platelet Volume 12.1 fL (9.4-12.4); Monocytes # 0.3 K/mcL (0.0-1.3); Monocytes % 4.8 %; Neutrophils # 3.7 K/mcL (1.6-8.9); Red Blood Count 2.38 M/mcL (4.19-5.50); Segmented Neutrophils % 68.5 %; White Blood Count 5.4 K/mcL (4.3-11.1)
[2019-08-05 10:38] LABS: Platelet Count 82 K/mcL (140-400)
[2019-08-05 10:50] LABS: Calcium 8.1 mg/dL (8.6-10.3); Potassium 5.1 mEq/L (3.5-5.1)
[2019-08-05] MEDS: Sodium Bicarbonate 50 MEQ in 0.45 % Sodium Chloride 1,000 ML IVC SCH (11:38)
--- NOTE | 2019-08-05 13:28 | Electrocardiograph Report ---
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
[2019-08-05 14:29] LABS: Bilirubin,Urine Negative (Negative); Blood,Urine Negative (Negative); Clarity,Urine Clear (Clear); Color,Urine Yellow (Yellow); Glucose,Urine (UA) 100 mg/dL (Normal); Ketones,Urine Negative (Negative); Leukocyte Esterase,Urine Negative (Negative); Nitrite,Urine Negative (Negative); Protein,Urine Negative (Neg-Trace); Specific Gravity,Urine 1.014 (1.010-1.025); Urobilinogen,Urine Normal (Normal)
--- NOTE | 2019-08-05 14:31 | Nephrology Consult Note ---
Date of Encounter: 08/05/19 Time of Encounter: 14:29 Assessment and Plan (1) CKD (chronic kidney disease) stage 4, GFR 15-29 ml/min Current Visit: Yes Status: Acute Baseline. Will refer to [facility] for follow up. Avoid nephrotoxins and renal dose. Strict I/O GFR is 23 today, improved. Follow a renal diet. K corrected for now at 5.1, will trend. PRANAV and CKD workup ordered. Restroperitoenal US ordered. (2) Hyperkalemia Current Visit: Yes Status: Acute Renal diet. (3) Suicidal ideation Current Visit: Yes Status: Acute Per psychiatry. Continue suicide precautions. History of Present Illness - Reason for Consult Consult date: 08/05/19 Chronic Kidney Disease Requesting physician: Pk Michelle - Chief Complaint SI - History of Present Illness Mr. Moore is a 58 year old male who was being evaluated on 1A, he presented with SI. PMH: atrial fibrillation, CHF, diabetes, myocardial infarction, and CKD. He has never seen a air brake worker in the past, however he has been set up with each air brake worker in this office, but did not come to office visits. Pt states he wants to kill himself during this interview. He denies chest pain or shortness of breath. Denies nausea, vomiting diarrhea. He is a poor historian. Does not say who he lives with or where. Denies any FH of CKD of HD, however he can not explain to me what HD is, after stating a very brief definition of it. Denies etoh, illicit drug use or tobacco use. PRANAV and CKD workup ordered. Past Med Surg Social Fam HX - Past Medical History Medical history: atrial fibrillation, CHF, diabetes, myocardial infarction, renal disease, seizures, other Additional medical history: STOMACH ULCERS Psychiatric history: depression, previous psychiatric hospitalization (Admitted to 1A on 08/04/2019) - Past Surgical History Surgical History: orthopedic, other (Diabetic foot infections with left great toe and left second toe amputations. Right index finger surgery.), pacemaker/AICD Additional surgical history: Left great toe, left second toe, right point finger, right middle order - Social History Smoking Status: Former smoker Smokeless Tobacco Status: No Alcohol use: none Drug use: none - Family History Mother Name: Makayla Moore Living Status: Hx Family Cardiac Disorders: Yes ([place]) Hx Family Endocrine Disorder: Yes ([place]) Father Name: Paul Moore Living Status: Hx Family Cardiac Disorders: Yes ([place]) Hx Family Endocrine Disorder: Yes (DM) Medications and Allergies Atorvastatin [Lipitor] 10 mg PO DAILY 08/05/19 [History] Furosemide [Lasix] 20 mg PO BID 08/05/19 [History] Insulin ASPART [Novolog Flexpen] 0 units SQ TIDWM MDD 40 units/day 08/05/19 [History] Insulin Degludec [Tresiba Flextouch U-200] 15 units SQ HS 08/05/19 [History] Lisinopril [Zestril] 5 mg PO DAILY 08/05/19 [History] Metoprolol Succinate [Toprol Xl] 25 mg PO DAILY 08/05/19 [History] PHENobarbital [Phenobarbital] 16.2 mg PO DAILY 08/05/19 [History] Tamsulosin HCl [Flomax] 0.4 mg PO BID 08/05/19 [History] levETIRAcetam [Roweepra] 500 mg PO BID 08/05/19 [History] raNITIdine HCl [Zantac] 150 mg PO BID 08/05/19 [History] Allergy/AdvReac Type Severity Reaction Status Date / Time No Known Allergies Allergy Verified 08/03/19 15:44 Review of Systems All Systems review (narrative): The remainder of the systems are negative. Constitutional: no chills, no fatigue, no fever(s) Cardiovascular: dyspnea, dyspnea on exertion, edema, no chest pain Respiratory: cough Gastrointestinal: no change in bowel habits, no diarrhea, no nausea, no vomiting Genitourinary Male: no hematuria Exam - Vital Signs Vital signs: Initial Vital Signs Temp Pulse Resp BP Pulse Ox 98.3 F 68 17 106/68 99 08/04/19 16:10 08/04/19 16:10 08/04/19 16:10 08/04/19 16:10 08/04/19 16:10 Vital Signs - Last 8 Hours Temp Pulse Resp BP Pulse Ox 08/05/19 10:56 97.9 F 74 16 105/56 100 08/05/19 09:10 100 08/05/19 08:18 98.0 F 90 16 115/64 100 Intake and Output 08/04/19 08/05/19 08/05/19 23:59 07:59 15:59 Intake Total 780 / 780 720 / 3330 2610 / 3330 Output Total 400 / 400 1200 / 2520 1320 / 2520 Balance 380 / 380 -480 / 810 1290 / 810 Intake: IV Fluids 1050 / 1050 Sodium Bicarbonate 50 MEQ In 0. 1050 / 1050 45% Sodium Chloride 1,000 ML @ 50 mls/hr IVC .Q21H KB Rx#: [id number] Oral 780 / 780 720 / 2280 1560 / 2280 Output: Urine 400 / 400 1200 / 2520 1320 / 2520 Other: Meal Dinner snack snack Percent of Meal Consumed 70% 100% 100% Stool Size Copious Stool Consistency loose Stool Color Brown # Bowel Movements 1 Weight 61.9 kg Blood Glucose* 113 156 281 Patient Weight 08/05/19 23:59 Weight 61.9 kg - General Appearance General appearance: well-developed, well-nourished EENT: ATNC, hearing intact, vision intact Neck: supple Respiratory: clear Cardiology: no edema, normal S1, normal S2 Gastrointestinal: normoactive bowel sounds, no tenderness, no guarding Integumentary: no rash, warm and dry Neurologic: alert and oriented x3 Musculoskeletal: no deformities, no erythema Psychiatric: mood/affect appropriate, cooperative Results - Lab Results 08/05/19 09:55 08/05/19 09:55 Most recent lab results 08/05/19 08/05/19 02:30 09:55 Calcium 8.2 L 8.1 L Magnesium 2.3 Consult Discharge Plan - Plan Referrals: NONE,PCP [Primary Care Provider] -
[2019-08-05 14:42] LABS: Protein/Creatinine Ratio,Urine 0.48 mg/mg (0.00-0.20); Sodium, Urine 29.3 mEq/L
--- NOTE | 2019-08-05 15:27 | Palliative - Consult Note ---
<Bisi Walters B - Last Filed: 08/05/19 15:52> Date of Encounter: 08/05/19 Time of Encounter: 14:45 - Assessment and Plan (1) Advanced care planning/counseling discussion Current Visit: Yes Status: Acute Assessment and plan: - At this time patient confirms that he is a DNR-CCA/DNI. - He does wish that Kateryna is his HPOA and makes decisions for him if he is unable to do so, however he does not have a legal document indicating this. - Attempted to contact Kateryna for collateral information but was unable to reach her at this time. - Patient is willing to go to a assisted if needed. - At this time patient does not meet criteria hospice. (2) HFrEF (heart failure with reduced ejection fraction) Current Visit: No Status: Chronic Qualifiers: Heart failure chronicity: chronic Qualified Code(s): I50.22 - Chronic systolic (congestive) heart failure (3) Suicidal ideation Current Visit: Yes Status: Acute Assessment and plan: Psychiatry has been consulted. At this time he denies current suicidal ideation. He does admit to having chronic suicidal ideations that come and go. (4) Depression Current Visit: No Status: Acute Qualifiers: Depression Type: major depressive disorder Major depression recurrence: recurrent Active/Remission status: currently active Major depression episode severity: severe Psychotic features: with psychotic features Qualified Code(s): F33.3 - Major depressive disorder, recurrent, severe with psychotic symptoms (5) Seizure disorder Current Visit: No Status: Chronic (6) CKD (chronic kidney disease) stage 4, GFR 15-29 ml/min Current Visit: Yes Status: Acute Assessment and plan: Nephrology has been consulted Palliative-CN HPI - Data of Consult Patient: known to practice within the last 3 years Consult date: 08/05/19 Requesting Physician: Jose Tripp DO Primary Care Provider: PCP NONE - Consult Narrative Palliative Care/Comfort Measures: Palliative care Reason for consult: Poor jail prognosis History of present illness: Mr. Moore is a 58 year old male with a past medical history of atrial fibrillation, CHF, diabetes, myocardial infarction, and CKD who was admitted to for suicidal ideation and then transferred to the medical floor due to abnormal labs. The patient reprots that currently his feet are bothering him He says that inp articular his left foot is feeling cold, but he denies pain currently in his feet. He is currently denying active suicidal ideation but does report that he does have it chronically coming and going. He reports that while he does not have a plan, he does think he would have acted on it if Kateryna did not call for him to get help. He denies protective factors at this time. He does have activities that he enjoys such as coloring and watching TV. He says that he currently lives with his ex-sister in Law, Kateryna, and that he has not contact with his brother who she was to. He says that he does not know where his brother lives. He says that in the home Kateryna will make meals for him, but that he is able to go to the bathroom and shower himself as well as walk around his home without the use of oxygen. He says that today he does not think he would be amilcar to walk to the parking lot from his hospital room, but does think eh would e able to walk to the nurses station from his room. He says he has been in a assisted in the past, but ti was for rehab, but he is willing to go to a assisted. He says he does not think he was on hospice in the past, but per the chart it is possible that he had been on hospice once before. He reports that he is currently feeling depressed, and that he takes medication for it, but he is unable to recall its name. He says that some medications help him and others don't. He does confirm that his current code status is DNR-CCA DNI. CC: Jose Tripp, DO - Time Spent with Patient Time: Total time spent is greater than 50% in coordination of care (as documented) at patient's floor/unit and/or counseling patient: Time with patient: 45 minutes Past Med Surg Social Fam HX - Past Medical History Medical history: atrial fibrillation, CHF, diabetes, myocardial infarction, melody al disease, seizures, other Additional medical history: STOMACH ULCERS Psychiatric history: depression, previous psychiatric hospitalization (Admitted to 1A on 08/04/2019) - Past Surgical History Surgical History: orthopedic, other (Diabetic foot infections with left great toe and left second toe amputations. Right index finger surgery.), pacemaker/AICD Additional surgical history: Left great toe, left second toe, right point finger, right middle order - Social History Smoking Status: Former smoker Smokeless Tobacco Status: No Alcohol use: none Drug use: none - Family History Mother Name: Makayla Moore Living Status: Hx Family Cardiac Disorders: Yes ([place]) Hx Family Endocrine Disorder: Yes (DM) Father Name: Paul Moore Living Status: Hx Family Cardiac Disorders: Yes ([place]) Hx Family Endocrine Disorder: Yes (DM) Medications and Allergies Atorvastatin [Lipitor] 10 mg PO DAILY 08/05/19 [History] Furosemide [Lasix] 20 mg PO BID 08/05/19 [History] Insulin ASPART [Novolog Flexpen] 0 units SQ TIDWM MDD 40 units/day 08/05/19 [History] Insulin Degludec [Tresiba Flextouch U-200] 15 units SQ HS 08/05/19 [History] Lisinopril [Zestril] 5 mg PO DAILY 08/05/19 [History] Metoprolol Succinate [Toprol Xl] 25 mg PO DAILY 08/05/19 [History] PHENobarbital [Phenobarbital] 16.2 mg PO DAILY 08/05/19 [History] Tamsulosin HCl [Flomax] 0.4 mg PO BID 08/05/19 [History] levETIRAcetam [Roweepra] 500 mg PO BID 08/05/19 [History] raNITIdine HCl [Zantac] 150 mg PO BID 08/05/19 [History] Allergy/AdvReac Type Severity Reaction Status Date / Time No Known Allergies Allergy Verified 08/03/19 15:44 - Constitutional Constitutional ROS PAL: as per HPI, no decreased appetite - EENT Eyes: as per HPI - Cardiovascular Cardiovascular ROS: no chest pain, no chest pain at rest - Respiratory Respiratory: dyspnea on exertion, no cough, no dyspnea - Gastrointestinal Gastrointestinal: no abdominal pain, no change in bowel habits, no nausea, no vomiting - Musculoskeletal Musculoskeletal ROS IM: no arthralgias - Neurological Neurological ROS: no confusion - Psychiatric Psychiatric general PM: depression Palliative Care-Exam - Constitutional Vitals: Temp Pulse Resp BP Pulse Ox 97.9 F 74 16 105/56 100 08/05/19 10:56 08/05/19 10:56 08/05/19 10:56 08/05/19 10:56 08/05/19 10:56 General appearance: Present: average body habitus, no acute distress - Head Head Exam: Present: atraumatic, normocephalic - Eye Eye exam: Present: normal appearance - ENT ENT exam: Present: mucous membranes moist - Expanded ENT Exam Teeth exam: Present: edentulous - Neck Neck exam: Present: full ROM - Respiratory Respiratory exam: Present: CTAB. Absent: rales, rhonchi, wheezes - Cardiovascular Cardiovascular exam: Present: RRR, +S1, +S2 Additional comments: Pacemaker present - GI/Abdominal Exam GI/Abdominal exam: Present: soft. Absent: tenderness - Rectal Rectal Exam: Present: deferred - Extremities Exam Additional comments: Left foot missing digits, there is an area of necrotic tissue on remaining toes. On right foot, he has al toes present, there is also necrotic tissue present on 2 of his digits as well. There is a covered area on his right medial malleolus that may be an ulcer, however this area was not appreciated at this time. Patinet ahd bilateral compression stockings in place. Patient's left hand had multiple digits missing. - Psychiatric Psychiatric exam: Present: depressed, normal affect. Absent: suicidal ideation Additional comments: Patient denied current suicidal ideation, however admitted that it does come intermittently. Internal Medicine - CN: Reslt - Labs CBC & Chem 7: 08/05/19 09:55 08/05/19 09:55 Labs: Short CBC 08/05/19 08/05/19 Range/Units 02:30 09:55 WBC 7.3 5.4 (4.3-11.1) K/mcL Hgb 7.5 L 7.5 L (12.9-16.9) g/dL Hct 22.4 L 22.1 L (37.5-50.1) % Plt Count 82 L 82 L (140-400) K/mcL Neutrophils # 3.7 (1.6-8.9) K/mcL BMP 08/05/19 08/05/19 02:30 09:55 Sodium 128 L 126 L Potassium 4.4 D 5.1 Chloride 102 101 Carbon Dioxide 21 L 24 BUN 91 H 82 H Creatinine 3.21 H 2.87 H Glucose 132 H 308 H Calcium 8.2 L 8.1 L Cardiac Enzymes 08/04/19 08/04/19 08/05/19 Range/Units 18:13 23:56 02:30 Troponin I < 0.03 < 0.03 < 0.03 (< 0.04) ng/mL Urine 08/05/19 Range/Units 14:10 Urine Color Yellow (Yellow) Urine Clarity Clear (Clear) Urine pH 6.0 (5.0-8.0) pH Units Ur Specific [place] 1.014 (1.010-1.025) Urine Protein Negative (Neg-Trace) mg/dL Urine Glucose (UA) 100 H (Normal) mg/dL Consult Discharge Plan - Plan Referrals: NONE,PCP [Primary Care Provider] - Palliative Quality Palliative Quality: Screen for Code Status: Yes, Screen for Goals of Care: Yes, Screen for Pain: Yes, If Pain Regimen Started, Initiate Bowel Regimen: NA, Screen for Nausea/Vomitting: Yes Code Status: 08/04/19 15:22 Resuscitation Status: Active [RES] Routine Comment: Resuscitation Status: [id number] Palliative Scale - Palliative Performance Scale How ambulatory is this patient?: Reduced What is patient's level of activity and evidence of disease?: Unable normal job/ work, Significant disease How much self-care assistance does patient require?: Full How much oral intake does the patient have?: Normal What is this patient's level of consciousness?: Full Palliative Performance Score: 70 % <Karime Ruiz - Last Filed: 08/05/19 16:25> Date of Encounter: 08/05/19 Palliative-CN HPI - Data of Consult Requesting Physician: Jose Tripp DO Primary Care Provider: PCP NONE - Consult Narrative History of present illness: Mr. Moore is a 58 year old male CC: Jose Tripp DO - Time Spent with Patient Time: Total time spent is greater than 50% in coordination of care (as documented) at patient's floor/unit and/or counseling patient: Time with patient: 75 minutes Palliative Care-Exam - Constitutional Vitals: Temp Pulse Resp BP Pulse Ox 97.9 F 74 16 105/56 100 08/05/19 10:56 08/05/19 10:56 08/05/19 10:56 08/05/19 10:56 08/05/19 10:56 Internal Medicine - CN: Reslt - Labs CBC & Chem 7: 08/05/19 09:55 08/05/19 09:55 Labs: Short CBC 08/05/19 08/05/19 Range/Units 02:30 09:55 WBC 7.3 5.4 (4.3-11.1) K/mcL Hgb 7.5 L 7.5 L (12.9-16.9) g/dL Hct 22.4 L 22.1 L (37.5-50.1) % Plt Count 82 L 82 L (140-400) K/mcL Neutrophils # 3.7 (1.6-8.9) K/mcL BMP 08/05/19 08/05/19 02:30 09:55 Sodium 128 L 126 L Potassium 4.4 D 5.1 Chloride 102 101 Carbon Dioxide 21 L 24 BUN 91 H 82 H Creatinine 3.21 H 2.87 H Glucose 132 H 308 H Calcium 8.2 L 8.1 L Cardiac Enzymes 08/04/19 08/04/19 08/05/19 Range/Units 18:13 23:56 02:30 Troponin I < 0.03 < 0.03 < 0.03 (< 0.04) ng/mL Urine 08/05/19 Range/Units 14:10 Urine Color Yellow (Yellow) Urine Clarity Clear (Clear) Urine pH 6.0 (5.0-8.0) pH Units Ur Specific [place] 1.014 (1.010-1.025) Urine Protein Negative (Neg-Trace) mg/dL Urine Glucose (UA) 100 H (Normal) mg/dL - Attending Attestation I examined this patient and my medical decision-making was reviewed with the Resident Physician. I agree with the documented findings, disposition and treatment plan as described except to the extent set forth below. 58 year old male with a past medical history of atrial fibrillation, CHF, diabetes, myocardial infarction, and CKD who was admitted to for suicidal ideation and then transferred to the medical floor due to abnormal labs. Patient has multiple comorbidities, including CHF EF 15-20%, CKD stage IV, and does not desire aggressive care. Palliative care consulted for GOC and hospice evaluation. 45 minutes conversation with pt, he was AAOx3, in no acute distress. Denies any pain, admits to some discomfort in his feet. Discussed current medical condition, trajectory of illness, treatment options and overall poor prognosis. Per chart review, pt was admitted to hospice at least twice in the past, but he denies any hospice services. He continue to declare on and of suicidal ideation, but no plan at this time. - Patient despite advanced CHF and CKD, appears comfortable at this time, not on home oxygen, and able to walk in the house without SOB. He does not currently meet criteria for hospice admission - patient confirmed code status to be DNRCCA and DNI - patient lives home with his [id number] Kateryna and wants her as a MPOA, however no form were found in the chart. Attempted to reach Kateryna, unable to reach. - Patient agreeable to going to NH, recommend PT/OT evaluation. palliative care will follow. Palliative Quality Code Status: 08/04/19 15:22 Resuscitation Status: Active [RES] Routine Comment: Resuscitation Status: [id number]
[2019-08-05] MEDS: Insulin DETEMIR 100 UNIT/ML X5UNITS SQ SCH (20:09)
[2019-08-06] MEDS: levETIRAcetam 250 MG TABLET PO SCH ×2 (05:08→17:21)
[2019-08-06 06:07] LABS: Hematocrit 21.7 % (37.5-50.1); Mean Corpuscular Volume 92.7 fL (83.0-100.0); Red Blood Count 2.34 M/mcL (4.19-5.50)
[2019-08-06 06:09] LABS: Basophils % 0.4 %; Eosinophils # 0.2 K/mcL (0.0-0.6); Eosinophils % 2.6 %; Hemoglobin 7.3 g/dL (12.9-16.9); Immature Platelets 11.6 % (1.1-6.1); Lymphocytes # 1.3 K/mcL (0.6-4.6); Lymphocytes % 22.9 %; Mean Corpuscular HGB Conc 33.6 g/dL (31.6-35.5); Mean Corpuscular Hemoglobin 31.2 pg (28.0-33.3); Mean Platelet Volume 12.8 fL (9.4-12.4); Monocytes # 0.4 K/mcL (0.0-1.3); Monocytes % 6.3 %; Neutrophils # 3.9 K/mcL (1.6-8.9); Red Cell Distribution Width 16.5 % (11.5-14.5); Segmented Neutrophils % 67.8 %; White Blood Count 5.7 K/mcL (4.3-11.1)
[2019-08-06 06:14] LABS: Platelet Count 81 K/mcL (140-400)
[2019-08-06 06:31] LABS: Calcium 8.3 mg/dL (8.6-10.3); Potassium 5.2 mEq/L (3.5-5.1)
--- NOTE | 2019-08-06 07:52 | Internal Med Progress Note ---
<VivianaEdwinPk M - Last Filed: 08/06/19 14:09> Hospitalist Progress Note - Encounter Date of Encounter: 08/06/19 Time of Encounter: 07:52 - Subjective Interval History: Patient was sleeping perpendicular to the head of the bed. His sitter reports that is how he likes to sleep at night. He awoke when I entered the room. Stated that he had 1-2 episodes of diarrhea last night that he reports is from his medications. Otherwise no changes overall. Breathing is still slightly improved from admission. Still endorses some mild chest pain and tenderness to palpation at the site of his pacemaker this is chronic for him. Denies fever, diaphoresis, n/v. - Exam Vitals: Temp Pulse Resp BP Pulse Ox 98.0 F 81 17 103/55 100 08/06/19 06:51 08/06/19 06:51 08/06/19 06:51 08/06/19 06:51 08/06/19 06:51 Exam: Gen: Alert and oriented. Appears older than stated age. HEENT: EOMI, Mucus membranes moist. Cardiovascular: Normal S1 & S2, no murmurs, rubs, gallops. Pulse regular. Chest: Mild tenderness to palpation at area of pacemaker. Chronic. Lungs: Normal breath sounds. No wheeze, rales, rhonchi. Abdomen: Soft, no tenderness. BS normoactive. Extremities: No deformity, no edema or tenderness, pulses symmetric. Neurological: CN grossly intact. No weakness or focal neuro deficit Psych: Continues to endorse suicidal ideation, mostly at night. No plan. - Assessment and Plan (1) Hyperkalemia Current Visit: Yes Status: Acute Assessment and Plan: Pt with a history of CKD 4. He was found to have hyperkalemia secondary to w orsening renal function. Continues to remain asymptomatic. EKG w/o significant changes. Potassium up from 5.1 to 5.2 today. - Continue to monitor daily. - Potassium at 5.2, 15 mg Kayexalate ordered per Nephro. - Renal diet. (2) CKD (chronic kidney disease) stage 4, GFR 15-29 ml/min Current Visit: Yes Status: Acute Assessment and Plan: Patient with history of CKD 4 and worsening renal function. BUN down from 82 to 76, creatinine down from 2.87 to 2.83 today. Retroperitoneal u/s without significant findings. - Hold lisinopril, lasix. - Avoid nephrotoxic drugs, renal dose. - Continue slow hydration with half NS and bicarb. - Strict I and O's. - Recheck renal function in AM. Per Nephrology who has now signed off, appreciate there assistance: Will refer to [facility] for follow up in 4-6 weeks, f/u with Dr. Manuel. BMP 2 weeks before follow up appointment. BMP 7 days after discharge. (3) HFrEF (heart failure with reduced ejection fraction) Current Visit: No Status: Chronic Assessment and Plan: Patient with a history of chronic systolic heart failure with LVEF of 15-20%. Not candidate for hospice per palliative. - Continue to hold lasixs, lisinopril. - Strict I and O's. (4) Suicidal ideation Current Visit: Yes Status: Resolved Assessment and Plan: Patient with suicidal ideation w/o plan. No HI or psychosis. Psych following. - Pt not suitable for hospice at this time per palliative care. Recs SNF placement at discharge, patient is agreeable. - Continue Lexapro 20mg daily per psych. - Suicide precautions, sitter per protocol. - PT/OT eval, plan to discharge to SNF. (5) Diabetes mellitus Current Visit: No Status: Chronic Assessment and Plan: Patient with history of diabetes. On home Tresiba, Novolog. - Continue basal-bolus insulin regimen. - Accuchecks ACHS, Q6 (6) Seizure disorder Current Visit: No Status: Chronic Assessment and Plan: Patient with history of chronic seizure disorder. Will continue keppra, phenobarbital at this time. - Suicide precautions. - Time Spent with Patient Total time spent is greater than 50% in coordination of care (as documented) at patient's floor/unit and/or counseling patient: Plan of Care Discussed with: patient Internal Medicine: Result - Labs CBC & Chem 7: 08/06/19 05:14 08/06/19 05:14 Labs: Short CBC 08/05/19 08/06/19 Range/Units 09:55 05:14 WBC 5.4 5.7 (4.3-11.1) K/mcL Hgb 7.5 L 7.3 L (12.9-16.9) g/dL Hct 22.1 L 21.7 L (37.5-50.1) % Plt Count 82 L 81 L (140-400) K/mcL Neutrophils # 3.7 3.9 (1.6-8.9) K/mcL BMP 08/05/19 08/06/19 09:55 05:14 Sodium 126 L 128 L Potassium 5.1 5.2 H Chloride 101 97 L Carbon Dioxide 24 23 BUN 82 H 76 H Creatinine 2.87 H 2.83 H Glucose 308 H 273 H Calcium 8.1 L 8.3 L Urine 08/05/19 Range/Units 14:10 Urine Color Yellow (Yellow) Urine Clarity Clear (Clear) Urine pH 6.0 (5.0-8.0) pH Units Ur Specific [place] 1.014 (1.010-1.025) Urine Protein Negative (Neg-Trace) mg/dL Urine Glucose (UA) 100 H (Normal) mg/dL - Impressions Impressions Retroperitoneum Ultrasound 08/05/19 16:44 IMPRESSION: Increased echogenicity of the kidneys which can be seen in medical renal disease. D/ / Kaylah Jaimes MD / Kaylah Jaimes MD Interpreting Provider: Kaylah Jaimes MD Consult Discharge Plan - Plan Referrals: NONE,PCP [Primary Care Provider] - <Jose Tripp - Last Filed: 08/06/19 14:42> Hospitalist Progress Note - Encounter Date of Encounter: 08/06/19 - Exam Vitals: Temp Pulse Resp BP Pulse Ox 99.3 F 84 17 122/63 98 08/06/19 12:14 08/06/19 12:14 08/06/19 12:14 08/06/19 12:14 08/06/19 12:14 - Assessment and Plan (1) Hyperkalemia Current Visit: Yes Status: Acute (2) CKD (chronic kidney disease) stage 4, GFR 15-29 ml/min Current Visit: Yes Status: Acute (3) Diabetes mellitus Current Visit: No Status: Chronic (4) Seizure disorder Current Visit: No Status: Chronic (5) Suicidal ideation Current Visit: Yes Status: Resolved (6) Anemia Current Visit: No Status: Chronic (7) HFrEF (heart failure with reduced ejection fraction) Current Visit: No Status: Chronic (8) Severe protein-calorie malnutrition Current Visit: No Status: Chronic - Time Spent with Patient Total time spent is greater than 50% in coordination of care (as documented) at patient's floor/unit and/or counseling patient: Internal Medicine: Result - Labs CBC & Chem 7: 08/06/19 05:14 08/06/19 05:14 Labs: Short CBC 08/06/19 Range/Units 05:14 WBC 5.7 (4.3-11.1) K/mcL Hgb 7.3 L (12.9-16.9) g/dL Hct 21.7 L (37.5-50.1) % Plt Count 81 L (140-400) K/mcL Neutrophils # 3.9 (1.6-8.9) K/mcL BMP 08/06/19 05:14 Sodium 128 L Potassium 5.2 H Chloride 97 L Carbon Dioxide 23 BUN 76 H Creatinine 2.83 H Glucose 273 H Calcium 8.3 L - Impressions Impressions Retroperitoneum Ultrasound 08/05/19 16:44 IMPRESSION: Increased echogenicity of the kidneys which can be seen in medical renal disease. D/ / Kaylah Jaimes MD / Kaylah Jaimes MD Interpreting Provider: Kaylah Jaimes MD - Attending Attestation I examined this patient and my medical decision-making was reviewed with the Resident Physician on 08/06/19. I agree with the documented findings, disposition and treatment plan as described except to the extent set forth below. Mr Moore is currently admitted for renal failure and psychiatric issues. He remains moderate to high risk due to potential for worsening clinical status. Mr Moore is feeling OK. Appears to be baseline overall. Renal function has improved. He does not have any concept of dialysis and what it entails. Has been cleared by psych to go to SNF not geropsych. Exam Alert Comfortable. NC. EOMI. Mucus membranes dry. Neck supple. Heart distant. Lungs clear now. Abd soft. Minimal edema. Moves all extremities. No rash. Plan: Renoprotective strategy. PT/OT consults for discharge planning. Further diagnoses and plan as above. <Pk Michelle - Last Filed: 08/06/19 14:09> (3) HFrEF (heart failure with reduced ejection fraction) Qualifiers: Heart failure chronicity: chronic Qualified Code(s): I50.22 - Chronic systolic (congestive) heart failure (5) Diabetes mellitus Qualifiers: Diabetes mellitus type: type 2 Diabetes mellitus correction insulin use: with forge tender use Diabetes mellitus complication status: with kidney complications Diabetes mellitus complication detail: with chronic kidney disease Chronic kidney disease stage: stage 4 (severe) Qualified Code(s): E11.22 - Type 2 diabetes mellitus with diabetic chronic kidney disease; N18.4 - Chronic kidney disease, stage 4 (severe); Z79.4 - MCFP (current) use of insulin <Jose Tripp - Last Filed: 08/06/19 14:42> (3) Diabetes mellitus Qualifiers: Diabetes mellitus type: type 2 Diabetes mellitus forge tender insulin use: with correction use Diabetes mellitus complication status: with kidney complications Diabetes mellitus complication detail: with chronic kidney disease Chronic kidney disease stage: stage 4 (severe) Qualified Code(s): E11.22 - Type 2 diabetes mellitus with diabetic chronic kidney disease; N18.4 - Chronic kidney disease, stage 4 (severe); Z79.4 - candy starch mold printer (current) use of insulin (6) Anemia Qualifiers: Anemia type: due to chronic kidney disease Chronic kidney disease stage: stage 4 (severe) Qualified Code(s): N18.4 - Chronic kidney disease, stage 4 (severe); D63.1 - Anemia in chronic kidney disease (7) HFrEF (heart failure with reduced ejection fraction) Qualifiers: Heart failure chronicity: chronic Qualified Code(s): I50.22 - Chronic systolic (congestive) heart failure
[2019-08-06] MEDS: Sodium Bicarbonate 50 MEQ in 0.45 % Sodium Chloride 1,000 ML IVC SCH (08:12)
[2019-08-06] MEDS: Metoprolol XL (24 HR) Succ 25 MG TAB.ER.24H PO SCH (08:12)
[2019-08-06 08:15] LABS: Complement C3 60 mg/dL (87-200); Rheumatoid Factor 15 IU/mL (Less than 14)
[2019-08-06] MEDS: Insulin LISPRO 300 UNITS/3 ML VIAL SQ SCH ×4 (08:27→19:58)
--- NOTE | 2019-08-06 08:37 | Psychiatry Progress Note ---
Date of Encounter: 08/06/19 Time of Encounter: 08:37 Subjective Interval history: Mr. Moore was seen and evaluated at the bedside. He denies any active suicidal ideation at this time, though he continues to report his mood as poor overall. He reports that he has been seeing his mom at night when he goes to bed for the last few days, but denies any overt visual or auditory hallucinations. Nursing staff reports no significant overnight events. Review of Systems Psychiatric: Reports: depression, hopelessness. Denies: anxiety, suicidal ideation, homicidal ideation, auditory hallucinations, visual hallucinations Results - Vital Signs Vital Signs: Temp Pulse Resp BP Pulse Ox 98.0 F 81 17 103/55 100 08/06/19 06:51 08/06/19 06:51 08/06/19 06:51 08/06/19 06:51 08/06/19 08:10 - Labs Labs: Laboratory Results - last 24 hr 08/04/19 08/05/19 08/05/19 20:12 07:23 09:55 WBC 5.4 RBC 2.38 L Hgb 7.5 L Hct 22.1 L MCV 92.9 MCH 31.5 MCHC 33.9 RDW 16.5 H Plt Count 82 L MPV 12.1 Immature Gran % 0.2 Seg Neutrophils % 68.5 Lymphocytes % 24.2 Monocytes % 4.8 Eosinophils % 1.9 Basophils % 0.4 Neutrophils # 3.7 Lymphocytes # 1.3 Monocytes # 0.3 Eosinophils # 0.1 Basophils # 0.0 Immature Plt Fraction 9.0 H Sodium Potassium Chloride Carbon Dioxide BUN Creatinine Est GFR ( Amer) Est GFR (Non-Af Amer) BUN/Creatinine Ratio Glucose POC Glucose 113 H 156 H Calculated Osmolality Uric Acid Calcium Creatine Kinase PTH Intact Urine Color Urine Clarity Urine pH Ur Specific [place] Urine Protein Urine Glucose (UA) Urine Ketones Urine Blood Urine Nitrite Urine Bilirubin Urine Urobilinogen Ur Leukocyte Esterase Urine Creatinine Urine Microalbumin Microalb/Creat Ratio Protein/Creatinin Ratio Urine Sodium Urine Total Protein Nasal Screen MRSA (PCR) Rheumatoid Factor Complement C3 Complement C4 08/05/19 08/05/19 08/05/19 09:55 10:53 11:43 WBC RBC Hgb Hct MCV MCH MCHC RDW Plt Count MPV Immature Gran % Seg Neutrophils % Lymphocytes % Monocytes % Eosinophils % Basophils % Neutrophils # Lymphocytes # Monocytes # Eosinophils # Basophils # Immature Plt Fraction Sodium 126 L Potassium 5.1 Chloride 101 Carbon Dioxide 24 BUN 82 H Creatinine 2.87 H Est GFR ( Amer) 28 L Est GFR (Non-Af Amer) 23 L BUN/Creatinine Ratio 29 H Glucose 308 H POC Glucose 281 H Calculated Osmolality 298 Uric Acid Calcium 8.1 L Creatine Kinase PTH Intact Urine Color Urine Clarity Urine pH Ur Specific [place] Urine Protein Urine Glucose (UA) Urine Ketones Urine Blood Urine Nitrite Urine Bilirubin Urine Urobilinogen Ur Leukocyte Esterase Urine Creatinine Urine Microalbumin Microalb/Creat Ratio Protein/Creatinin Ratio Urine Sodium Urine Total Protein Nasal Screen MRSA (PCR) NOT DETECTED Rheumatoid Factor Complement C3 Complement C4 08/05/19 08/05/19 08/05/19 14:10 14:18 16:56 WBC RBC Hgb Hct MCV MCH MCHC RDW Plt Count MPV Immature Gran % Seg Neutrophils % Lymphocytes % Monocytes % Eosinophils % Basophils % Neutrophils # Lymphocytes # Monocytes # Eosinophils # Basophils # Immature Plt Fraction Sodium Potassium Chloride Carbon Dioxide BUN Creatinine Est GFR ( Amer) Est GFR (Non-Af Amer) BUN/Creatinine Ratio Glucose POC Glucose 300 H Calculated Osmolality Uric Acid Calcium Creatine Kinase PTH Intact Urine Color Yellow Urine Clarity Clear Urine pH 6.0 Ur Specific [place] 1.014 Urine Protein Negative Urine Glucose (UA) 100 H Urine Ketones Negative Urine Blood Negative Urine Nitrite Negative Urine Bilirubin Negative Urine Urobilinogen Normal Ur Leukocyte Esterase Negative Urine Creatinine 29 Urine Microalbumin 38 Microalb/Creat Ratio 131 H Protein/Creatinin Ratio 0.48 H Urine Sodium 29.3 Urine Total Protein 14 Nasal Screen MRSA (PCR) Rheumatoid Factor Complement C3 Complement C4 08/05/19 08/06/19 08/06/19 19:41 05:14 05:14 WBC 5.7 RBC 2.34 L Hgb 7.3 L Hct 21.7 L MCV 92.7 MCH 31.2 MCHC 33.6 RDW 16.5 H Plt Count 81 L MPV 12.8 H Immature Gran % 0.0 Seg Neutrophils % 67.8 Lymphocytes % 22.9 Monocytes % 6.3 Eosinophils % 2.6 Basophils % 0.4 Neutrophils # 3.9 Lymphocytes # 1.3 Monocytes # 0.4 Eosinophils # 0.2 Basophils # 0.0 Immature Plt Fraction 11.6 H Sodium 128 L Potassium 5.2 H Chloride 97 L Carbon Dioxide 23 BUN 76 H Creatinine 2.83 H Est GFR ( Amer) 28 L Est GFR (Non-Af Amer) 23 L BUN/Creatinine Ratio 27 H Glucose 273 H POC Glucose 292 H Calculated Osmolality 298 Uric Acid Calcium 8.3 L Creatine Kinase PTH Intact Urine Color Urine Clarity Urine pH Ur Specific [place] Urine Protein Urine Glucose (UA) Urine Ketones Urine Blood Urine Nitrite Urine Bilirubin Urine Urobilinogen Ur Leukocyte Esterase Urine Creatinine Urine Microalbumin Microalb/Creat Ratio Protein/Creatinin Ratio Urine Sodium Urine Total Protein Nasal Screen MRSA (PCR) Rheumatoid Factor Complement C3 Complement C4 08/06/19 08/06/19 08/06/19 05:14 05:14 05:14 WBC RBC Hgb Hct MCV MCH MCHC RDW Plt Count MPV Immature Gran % Seg Neutrophils % Lymphocytes % Monocytes % Eosinophils % Basophils % Neutrophils # Lymphocytes # Monocytes # Eosinophils # Basophils # Immature Plt Fraction Sodium Potassium Chloride Carbon Dioxide BUN Creatinine Est GFR ( Amer) Est GFR (Non-Af Amer) BUN/Creatinine Ratio Glucose POC Glucose Calculated Osmolality Uric Acid 8.0 H Calcium Creatine Kinase 51 PTH Intact 50.7 Urine Color Urine Clarity Urine pH Ur Specific [place] Urine Protein Urine Glucose (UA) Urine Ketones Urine Blood Urine Nitrite Urine Bilirubin Urine Urobilinogen Ur Leukocyte Esterase Urine Creatinine Urine Microalbumin Microalb/Creat Ratio Protein/Creatinin Ratio Urine Sodium Urine Total Protein Nasal Screen MRSA (PCR) Rheumatoid Factor 15 H Complement C3 Complement C4 08/06/19 05:14 WBC RBC Hgb Hct MCV MCH MCHC RDW Plt Count MPV Immature Gran % Seg Neutrophils % Lymphocytes % Monocytes % Eosinophils % Basophils % Neutrophils # Lymphocytes # Monocytes # Eosinophils # Basophils # Immature Plt Fraction Sodium Potassium Chloride Carbon Dioxide BUN Creatinine Est GFR ( Amer) Est GFR (Non-Af Amer) BUN/Creatinine Ratio Glucose POC Glucose Calculated Osmolality Uric Acid Calcium Creatine Kinase PTH Intact Urine Color Urine Clarity Urine pH Ur Specific [place] Urine Protein Urine Glucose (UA) Urine Ketones Urine Blood Urine Nitrite Urine Bilirubin Urine Urobilinogen Ur Leukocyte Esterase Urine Creatinine Urine Microalbumin Microalb/Creat Ratio Protein/Creatinin Ratio Urine Sodium Urine Total Protein Nasal Screen MRSA (PCR) Rheumatoid Factor Complement C3 60 L Complement C4 18 L - Impressions ITS Impressions Retroperitoneum Ultrasound 08/05/19 16:44 IMPRESSION: Increased echogenicity of the kidneys which can be seen in medical renal disease. D/ / Kaylah Jaimes MD / Kaylah Jaimes MD Interpreting Provider: Kaylah Jaimes MD Assessment and Plan (1) Depression Current visit: No Status: Acute Additional Plan: Patient continues to report his overall mood as poor, though he has had some improvement with use of lexapro, and he denies any suicidal or homicidal ideation this morning. Recommendations: - Continue lexapro 20mg daily. - Patient denies SI/HI and is future-oriented; therefore, he will no longer require placement in abram-psych facility at time of discharge. Discharge placement per primary team. - Continue sitter per primary team. Qualifiers: Depression Type: major depressive disorder Major depression recurrence: recurrent Active/Remission status: currently active Major depression episode severity: severe Psychotic features: with psychotic features Qualified Code(s): F33.3 - Major depressive disorder, recurrent, severe with psychotic symptoms (2) Suicidal ideation Current visit: Yes Status: Resolved Consult Discharge Plan - Plan Referrals: NONE,PCP [Primary Care Provider] - - Attending Attestation I examined this patient and my medical decision-making was reviewed with the Resident Physician. I agree with the documented findings, disposition and treatment plan as described except to the extent set forth below. Patient is no longer having suicidal ideations. He is future oriented. At this time once he is sufficiently medically stable he can be discharged to [facility] or other appropriate medical stepdown facility or outpatient based on medical recommendations. He does not need to come to a psychiatric unit and can follow- up either outpatient or with the mental health services at whatever long-term care facility he ends up. Psychiatry Exam - Constitutional Vitals: Temp Pulse Resp BP Pulse Ox 98.0 F 81 17 103/55 100 08/06/19 06:51 08/06/19 06:51 08/06/19 06:51 08/06/19 06:51 08/06/19 08:10 General appearance: unkempt, disheveled - Musculoskeletal Strength & Tone: normal for patient (grossly normal on observation) - Psychiatric Patient Orientation: Yes Person, Yes Time, Yes Place Level of alertness: Alert, Follows commands Behavior: calm, cooperative Psychomotor activity: Normal Eye Contact: Minimal Contact Mood Description: Depressed Affect description: congruent with mood Speech Volume: Normal Speech pattern: normal rate, normal rhythm, normal tone, fluent, spontaneous Language & Vocabulary: consistent with education Thought Content: No Suicidal ideation, No Homicidal ideation, No Overt delusions Perceptual Disturbances: No Reacting to internal stimuli, No Auditory hallucinations, No Visual hallucinations Attention Span Ability: Capable of Sustained Attention Memory Description: Grossly Intact Patient Reliability: Questionable Historian
--- NOTE | 2019-08-06 11:27 | Nephrology Progress Note ---
Date of Encounter: 08/06/19 Time of Encounter: 11:26 - Assessment and Plan (1) CKD (chronic kidney disease) stage 4, GFR 15-29 ml/min Current Visit: Yes Status: Acute Baseline per EMR. Will refer to [facility] for follow up in 4-6 weeks, f/u with Dr. Manuel. BMP 2 weeks before follow up appointment. BMP 7 days after discharge. Avoid nephrotoxins and renal dose. Strict I/O GFR is 23 today, stable. Follow a renal diet. K is 5.2, 15 mg Kayexalate ordered. Restroperitoenal US normal. Will sign off at this time, please reconsult if needed. (2) Hyperkalemia Current Visit: Yes Status: Acute Renal diet. (3) Suicidal ideation Current Visit: Yes Status: Resolved Per psychiatry. Continue suicide precautions. Subjective Principal diagnosis: SI Interval history: Since seen and examined at bedside. Sitter at bedside. Denies chest pain or shortness of breath. Denies nausea, vomiting or diarrhea. Objective - Vital Signs Vital signs: Vital Signs Temp Pulse Resp BP Pulse Ox 08/06/19 08:10 100 08/06/19 06:51 98.0 F 81 17 103/55 100 08/06/19 03:43 98.5 F 73 18 93/57 08/06/19 00:16 98.2 F 77 20 110/61 100 08/05/19 16:56 97.7 F 85 16 110/66 96 Intake and Output 08/05/19 08/06/19 08/06/19 23:59 07:59 15:59 Intake Total 600 / 3930 240 / 1830 1590 / 1830 Output Total 1100 / 3620 1100 / 1850 750 / 1850 Balance -500 / 310 -860 / -20 840 / -20 Intake: IV Fluids 1050 / 1050 Sodium Bicarbonate 50 MEQ In 0. 1050 / 1050 45% Sodium Chloride 1,000 ML @ 50 mls/hr IVC .Q21H [facility] Rx#: [id number] Oral 600 / 2880 240 / 780 540 / 780 Output: Urine 1100 / 3620 1100 / 1850 750 / 1850 Other: Meal Dinner Breakfast Percent of Meal Consumed 100% 100% Stool Size Large Large Stool Consistency soft loose Stool Color Brown Brown Blood Glucose* 292 345 - General Appearance General appearance: Present: well-developed, well-nourished EENT: Present: ATNC, hearing intact, vision intact Neck: Present: supple Respiratory: Present: clear Cardiology: Present: no edema, normal S1, normal S2 Gastrointestinal: Present: normoactive bowel sounds, no tenderness, no guarding Integumentary: Present: no rash, warm and dry Neurologic: Present: alert and oriented x3 Musculoskeletal: Present: no deformities, no erythema Psychiatric: Present: mood/affect appropriate, cooperative - Lab 08/06/19 05:14 08/06/19 05:14 Most recent lab results 08/06/19 05:14 Calcium 8.3 L Consult Discharge Plan - Plan Referrals: NONE,PCP [Primary Care Provider] -
[2019-08-06 11:47] LABS: Vitamin D 25 Hydroxy 14 ng/mL (30-80)
--- NOTE | 2019-08-06 11:48 | Palliative Progress Note ---
<Bisi Walters B - Last Filed: 08/06/19 12:45> Date of Encounter: 08/06/19 Time of Encounter: 11:15 - Assessment and plan (1) Advanced care planning/counseling discussion Current Visit: Yes Status: Acute Assessment and plan: Patient was seen at bedside. Patient's code status is [id number] - Patient's friend Kateryna had a copy of patients HPOA which was copied and placed in patient's file - Kateryna expressed concerns about patient returning to the [place] [facility], please see HPI for further details. She is willing for the patient to return to her home. - At this time patient does not meet criteria for hospice as patient is capable of caring for his ADL's and does not have a life expectancy of 6 months or less at this time. (2) HFrEF (heart failure with reduced ejection fraction) Current Visit: No Status: Chronic Qualifiers: Heart failure chronicity: chronic Qualified Code(s): I50.22 - Chronic systolic (congestive) heart failure (3) Suicidal ideation Current Visit: Yes Status: Resolved Assessment and plan: Psychiatry was consulted by primary team (4) Depression Current Visit: No Status: Acute Qualifiers: Depression Type: major depressive disorder Major depression recurrence: recurrent Active/Remission status: currently active Major depression episode severity: severe Psychotic features: with psychotic features Qualified Code(s): F33.3 - Major depressive disorder, recurrent, severe with psychotic symptoms (5) Seizure disorder Current Visit: No Status: Chronic (6) CKD (chronic kidney disease) stage 4, GFR 15-29 ml/min Current Visit: Yes Status: Acute Assessment and plan: nephrology was consulted by primary team - Time Spent With Patient Total time spent is greater than 50% in coordination of care (as documented) at patient's floor/unit and/or counseling patient: Greater than 35 minutes - Subjective Interval history: Patient was seen at bedside today to discuss HPOA. While discussing this form with the patient, patient's ex-MILAN, Kateryna arrived with her own copy of the HPOA. She reports that the patient is able walk around the home and outside, as well as sweep the home, and cook. She says that he will only do a limited amount of these things including taking care of his cleanliness without prompting despite being physically capable of doing so which concerns her. She also expresses concerns regarding him going to a [place] [facility]. She informed this provider that only one [place] [facility] [place] w[place] to accept the patient, and the last time he was at this [place] [facility], she felt like the patient received poor care, stating that he was able to walk into the [place] [facility] and came out in a wheelchair. She says that she also felt that they did not adequately attend to his hygienic needs as well. She is willing for the patient to return home with her. She was informed about his potential need for dialysis, which she states she is aware of what is involved as she has had other family members on dialysis in the past. Patient also expresses some concerns about diarrhea as well as bilateral foot pain. - Constitutional Vitals: Abnormal lab results RBC 2.34 M/mcL (4.19-5.50) L 08/06/19 05:14 Hgb 7.3 g/dL (12.9-16.9) L 08/06/19 05:14 Hct 21.7 % (37.5-50.1) L 08/06/19 05:14 RDW 16.5 % (11.5-14.5) H 08/06/19 05:14 Plt Count 81 K/mcL (140-400) L 08/06/19 05:14 MPV 12.8 fL (9.4-12.4) H 08/06/19 05:14 Immature Plt Fraction 11.6 % (1.1-6.1) H 08/06/19 05:14 Sodium 128 mEq/L (136-145) L 08/06/19 05:14 Potassium 5.2 mEq/L (3.5-5.1) H 08/06/19 05:14 Chloride 97 mEq/L (98-107) L 08/06/19 05:14 Carbon Dioxide 21 mEq/L (23-29) L 08/05/19 02:30 BUN 76 mg/dL (6-20) H 08/06/19 05:14 Creatinine 2.83 mg/dL (0.70-1.30) H 08/06/19 05:14 Est GFR ( Amer) 28 (> 60) L 08/06/19 05:14 Est GFR (Non-Af Amer) 23 (> 60) L 08/06/19 05:14 BUN/Creatinine Ratio 27 (6-26) H 08/06/19 05:14 Glucose 273 mg/dL (70-105) H 08/06/19 05:14 POC Glucose 292 mg/dL (70-99) H 08/05/19 19:41 Uric Acid 8.0 mg/dL (2.3-7.6) H 08/06/19 05:14 Calcium 8.3 mg/dL (8.6-10.3) L 08/06/19 05:14 HDL Cholesterol 35 mg/dL (40-59) L 08/05/19 02:30 Urine Glucose (UA) 100 mg/dL (Normal) H 08/05/19 14:10 Microalb/Creat Ratio 131 mcg/mg (Less than 30) H 08/05/19 14:18 Protein/Creatinin Ratio 0.48 mg/mg (0.00-0.20) H 08/05/19 14:18 Rheumatoid Factor 15 IU/mL (Less than 14) H 08/06/19 05:14 Complement C3 60 mg/dL (87-200) L 08/06/19 05:14 Complement C4 18 mg/dL (19-52) L 08/06/19 05:14 - Head Head exam: Present: atraumatic, normocephalic - ENT ENT exam: Present: mucous membranes moist - Expanded ENT Exam Teeth exam: Present: edentulous (5) - Respiratory Respiratory exam: Present: CTAB. Absent: rales, rhonchi, wheezes - Cardiovascular Cardiovascular exam: Present: RRR, +S1, +S2 - GI/Abdominal GI/Abdominal exam: Present: soft. Absent: tenderness - Extremities Exam Extremities exam: Present: pedal edema Additional comments: patient has areas of necrosis on feet bilaterally, these were not appreciated today. - Psychiatric Psychiatric exam: Present: depressed Palliative Quality Palliative Quality: Screen for Code Status: Yes, Screen for Goals of Care: Yes, Screen for Pain: Yes, If Pain Regimen Started, Initiate Bowel Regimen: NA, Screen for Nausea/Vomitting: Yes Code Status: 08/04/19 15:22 Resuscitation Status: Active [RES] Routine Comment: Resuscitation Status: [id number] - Labs CBC & Chem 7: 08/06/19 05:14 08/06/19 05:14 Labs: Laboratory Results - last 24 hr 09/08/05/19 08/05/19 20:12 07:23 10:53 WBC RBC Hgb Hct MCV MCH MCHC RDW Plt Count MPV Immature Gran % Seg Neutrophils % Lymphocytes % Monocytes % Eosinophils % Basophils % Neutrophils # Lymphocytes # Monocytes # Eosinophils # Basophils # Immature Plt Fraction Sodium Potassium Chloride Carbon Dioxide BUN Creatinine Est GFR ( Amer) Est GFR (Non-Af Amer) BUN/Creatinine Ratio Glucose POC Glucose 113 H 156 H 281 H Calculated Osmolality Uric Acid Calcium Creatine Kinase PTH Intact Urine Color Urine Clarity Urine pH Ur Specific [place] Urine Protein Urine Glucose (UA) Urine Ketones Urine Blood Urine Nitrite Urine Bilirubin Urine Urobilinogen Ur Leukocyte Esterase Urine Creatinine Urine Microalbumin Microalb/Creat Ratio Protein/Creatinin Ratio Urine Sodium Urine Total Protein Nasal Screen MRSA (PCR) Rheumatoid Factor Complement C3 Complement C4 08/05/19 08/05/19 08/05/19 11:43 14:10 14:18 WBC RBC Hgb Hct MCV MCH MCHC RDW Plt Count MPV Immature Gran % Seg Neutrophils % Lymphocytes % Monocytes % Eosinophils % Basophils % Neutrophils # Lymphocytes # Monocytes # Eosinophils # Basophils # Immature Plt Fraction Sodium Potassium Chloride Carbon Dioxide BUN Creatinine Est GFR ( Amer) Est GFR (Non-Af Amer) BUN/Creatinine Ratio Glucose POC Glucose Calculated Osmolality Uric Acid Calcium Creatine Kinase PTH Intact Urine Color Yellow Urine Clarity Clear Urine pH 6.0 Ur Specific [place] 1.014 Urine Protein Negative Urine Glucose (UA) 100 H Urine Ketones Negative Urine Blood Negative Urine Nitrite Negative Urine Bilirubin Negative Urine Urobilinogen Normal Ur Leukocyte Esterase Negative Urine Creatinine 29 Urine Microalbumin 38 Microalb/Creat Ratio 131 H Protein/Creatinin Ratio 0.48 H Urine Sodium 29.3 Urine Total Protein 14 Nasal Screen MRSA (PCR) NOT DETECTED Rheumatoid Factor Complement C3 Complement C4 08/05/19 08/05/19 08/06/19 16:56 19:41 05:14 WBC 5.7 RBC 2.34 L Hgb 7.3 L Hct 21.7 L MCV 92.7 MCH 31.2 MCHC 33.6 RDW 16.5 H Plt Count 81 L MPV 12.8 H Immature Gran % 0.0 Seg Neutrophils % 67.8 Lymphocytes % 22.9 Monocytes % 6.3 Eosinophils % 2.6 Basophils % 0.4 Neutrophils # 3.9 Lymphocytes # 1.3 Monocytes # 0.4 Eosinophils # 0.2 Basophils # 0.0 Immature Plt Fraction 11.6 H Sodium Potassium Chloride Carbon Dioxide BUN Creatinine Est GFR ( Amer) Est GFR (Non-Af Amer) BUN/Creatinine Ratio Glucose POC Glucose 300 H 292 H Calculated Osmolality Uric Acid Calcium Creatine Kinase PTH Intact Urine Color Urine Clarity Urine pH Ur Specific [place] Urine Protein Urine Glucose (UA) Urine Ketones Urine Blood Urine Nitrite Urine Bilirubin Urine Urobilinogen Ur Leukocyte Esterase Urine Creatinine Urine Microalbumin Microalb/Creat Ratio Protein/Creatinin Ratio Urine Sodium Urine Total Protein Nasal Screen MRSA (PCR) Rheumatoid Factor Complement C3 Complement C4 08/06/19 08/06/19 08/06/19 05:14 05:14 05:14 WBC RBC Hgb Hct MCV MCH MCHC RDW Plt Count MPV Immature Gran % Seg Neutrophils % Lymphocytes % Monocytes % Eosinophils % Basophils % Neutrophils # Lymphocytes # Monocytes # Eosinophils # Basophils # Immature Plt Fraction Sodium 128 L Potassium 5.2 H Chloride 97 L Carbon Dioxide 23 BUN 76 H Creatinine 2.83 H Est GFR ( Amer) 28 L Est GFR (Non-Af Amer) 23 L BUN/Creatinine Ratio 27 H Glucose 273 H POC Glucose Calculated Osmolality 298 Uric Acid 8.0 H Calcium 8.3 L Creatine Kinase 51 PTH Intact Urine Color Urine Clarity Urine pH Ur Specific [place] Urine Protein Urine Glucose (UA) Urine Ketones Urine Blood Urine Nitrite Urine Bilirubin Urine Urobilinogen Ur Leukocyte Esterase Urine Creatinine Urine Microalbumin Microalb/Creat Ratio Protein/Creatinin Ratio Urine Sodium Urine Total Protein Nasal Screen MRSA (PCR) Rheumatoid Factor 15 H Complement C3 Complement C4 08/06/19 08/06/19 05:14 05:14 WBC RBC Hgb Hct MCV MCH MCHC RDW Plt Count MPV Immature Gran % Seg Neutrophils % Lymphocytes % Monocytes % Eosinophils % Basophils % Neutrophils # Lymphocytes # Monocytes # Eosinophils # Basophils # Immature Plt Fraction Sodium Potassium Chloride Carbon Dioxide BUN Creatinine Est GFR ( Amer) Est GFR (Non-Af Amer) BUN/Creatinine Ratio Glucose POC Glucose Calculated Osmolality Uric Acid Calcium Creatine Kinase PTH Intact 50.7 Urine Color Urine Clarity Urine pH Ur Specific [place] Urine Protein Urine Glucose (UA) Urine Ketones Urine Blood Urine Nitrite Urine Bilirubin Urine Urobilinogen Ur Leukocyte Esterase Urine Creatinine Urine Microalbumin Microalb/Creat Ratio Protein/Creatinin Ratio Urine Sodium Urine Total Protein Nasal Screen MRSA (PCR) Rheumatoid Factor Complement C3 60 L Complement C4 18 L - Impressions Impressions Retroperitoneum Ultrasound 08/05/19 16:44 IMPRESSION: Increased echogenicity of the kidneys which can be seen in medical renal disease. D/ / Kaylah Jaimes MD / Kaylah Jaimes MD Interpreting Provider: Kaylah Jaimes MD Palliative Scale - Palliative Performance Scale How ambulatory is this patient?: Reduced What is patient's level of activity and evidence of disease?: Normal activity with effort, Some evidence of disease How much self-care assistance does patient require?: Full How much oral intake does the patient have?: Normal What is this patient's level of consciousness?: Full Palliative Performance Score: 80 % Consult Discharge Plan - Plan Referrals: NONE,PCP [Primary Care Provider] - <SaraKarime Carter - Last Filed: 08/06/19 12:56> Date of Encounter: 08/06/19 - Time Spent With Patient Total time spent is greater than 50% in coordination of care (as documented) at patient's floor/unit and/or counseling patient: - Constitutional Vitals: Abnormal lab results RBC 2.34 M/mcL (4.19-5.50) L 08/06/19 05:14 Hgb 7.3 g/dL (12.9-16.9) L 08/06/19 05:14 Hct 21.7 % (37.5-50.1) L 08/06/19 05:14 RDW 16.5 % (11.5-14.5) H 08/06/19 05:14 Plt Count 81 K/mcL (140-400) L 08/06/19 05:14 MPV 12.8 fL (9.4-12.4) H 08/06/19 05:14 Immature Plt Fraction 11.6 % (1.1-6.1) H 08/06/19 05:14 Sodium 128 mEq/L (136-145) L 08/06/19 05:14 Potassium 5.2 mEq/L (3.5-5.1) H 08/06/19 05:14 Chloride 97 mEq/L (98-107) L 08/06/19 05:14 Carbon Dioxide 21 mEq/L (23-29) L 08/05/19 02:30 BUN 76 mg/dL (6-20) H 08/06/19 05:14 Creatinine 2.83 mg/dL (0.70-1.30) H 08/06/19 05:14 Est GFR ( Amer) 28 (> 60) L 08/06/19 05:14 Est GFR (Non-Af Amer) 23 (> 60) L 08/06/19 05:14 BUN/Creatinine Ratio 27 (6-26) H 08/06/19 05:14 Glucose 273 mg/dL (70-105) H 08/06/19 05:14 POC Glucose 292 mg/dL (70-99) H 08/05/19 19:41 Uric Acid 8.0 mg/dL (2.3-7.6) H 08/06/19 05:14 Calcium 8.3 mg/dL (8.6-10.3) L 08/06/19 05:14 HDL Cholesterol 35 mg/dL (40-59) L 08/05/19 02:30 25-OH Vitamin D Total 14 ng/mL (30-80) L 08/06/19 05:14 Urine Glucose (UA) 100 mg/dL (Normal) H 08/05/19 14:10 Microalb/Creat Ratio 131 mcg/mg (Less than 30) H 08/05/19 14:18 Protein/Creatinin Ratio 0.48 mg/mg (0.00-0.20) H 08/05/19 14:18 Rheumatoid Factor 15 IU/mL (Less than 14) H 08/06/19 05:14 Complement C3 60 mg/dL (87-200) L 08/06/19 05:14 Complement C4 18 mg/dL (19-52) L 08/06/19 05:14 - Attending Attestation I examined this patient and my medical decision-making was reviewed with the Resident Physician. I agree with the documented findings, disposition and treatment plan as described. We independently had [id number] contact with the patient. Palliative Quality Code Status: 08/04/19 15:22 Resuscitation Status: Active [RES] Routine Comment: Resuscitation Status: [id number] - Labs CBC & Chem 7: 08/06/19 05:14 08/06/19 05:14 Labs: Laboratory Results - last 24 hr 08/04/19 08/05/19 08/05/19 20:12 10:53 11:43 WBC RBC Hgb Hct MCV MCH MCHC RDW Plt Count MPV Immature Gran % Seg Neutrophils % Lymphocytes % Monocytes % Eosinophils % Basophils % Neutrophils # Lymphocytes # Monocytes # Eosinophils # Basophils # Immature Plt Fraction Sodium Potassium Chloride Carbon Dioxide BUN Creatinine Est GFR ( Amer) Est GFR (Non-Af Amer) BUN/Creatinine Ratio Glucose POC Glucose 113 H 281 H Calculated Osmolality Uric Acid Calcium Creatine Kinase 25-OH Vitamin D Total PTH Intact Urine Color Urine Clarity Urine pH Ur Specific [place] Urine Protein Urine Glucose (UA) Urine Ketones Urine Blood Urine Nitrite Urine Bilirubin Urine Urobilinogen Ur Leukocyte Esterase Urine Creatinine Urine Microalbumin Microalb/Creat Ratio Protein/Creatinin Ratio Urine Sodium Urine Total Protein Nasal Screen MRSA (PCR) NOT DETECTED Rheumatoid Factor Complement C3 Complement C4 08/05/19 08/05/19 08/05/19 14:10 14:18 16:56 WBC RBC Hgb Hct MCV MCH MCHC RDW Plt Count MPV Immature Gran % Seg Neutrophils % Lymphocytes % Monocytes % Eosinophils % Basophils % Neutrophils # Lymphocytes # Monocytes # Eosinophils # Basophils # Immature Plt Fraction Sodium Potassium Chloride Carbon Dioxide BUN Creatinine Est GFR ( Amer) Est GFR (Non-Af Amer) BUN/Creatinine Ratio Glucose POC Glucose 300 H Calculated Osmolality Uric Acid Calcium Creatine Kinase 25-OH Vitamin D Total PTH Intact Urine Color Yellow Urine Clarity Clear Urine pH 6.0 Ur Specific [place] 1.014 Urine Protein Negative Urine Glucose (UA) 100 H Urine Ketones Negative Urine Blood Negative Urine Nitrite Negative Urine Bilirubin Negative Urine Urobilinogen Normal Ur Leukocyte Esterase Negative Urine Creatinine 29 Urine Microalbumin 38 Microalb/Creat Ratio 131 H Protein/Creatinin Ratio 0.48 H Urine Sodium 29.3 Urine Total Protein 14 Nasal Screen MRSA (PCR) Rheumatoid Factor Complement C3 Complement C4 08/05/19 08/06/19 08/06/19 19:41 05:14 05:14 WBC 5.7 RBC 2.34 L Hgb 7.3 L Hct 21.7 L MCV 92.7 MCH 31.2 MCHC 33.6 RDW 16.5 H Plt Count 81 L MPV 12.8 H Immature Gran % 0.0 Seg Neutrophils % 67.8 Lymphocytes % 22.9 Monocytes % 6.3 Eosinophils % 2.6 Basophils % 0.4 Neutrophils # 3.9 Lymphocytes # 1.3 Monocytes # 0.4 Eosinophils # 0.2 Basophils # 0.0 Immature Plt Fraction 11.6 H Sodium 128 L Potassium 5.2 H Chloride 97 L Carbon Dioxide 23 BUN 76 H Creatinine 2.83 H Est GFR ( Amer) 28 L Est GFR (Non-Af Amer) 23 L BUN/Creatinine Ratio 27 H Glucose 273 H POC Glucose 292 H Calculated Osmolality 298 Uric Acid Calcium 8.3 L Creatine Kinase 25-OH Vitamin D Total PTH Intact Urine Color Urine Clarity Urine pH Ur Specific [place] Urine Protein Urine Glucose (UA) Urine Ketones Urine Blood Urine Nitrite Urine Bilirubin Urine Urobilinogen Ur Leukocyte Esterase Urine Creatinine Urine Microalbumin Microalb/Creat Ratio Protein/Creatinin Ratio Urine Sodium Urine Total Protein Nasal Screen MRSA (PCR) Rheumatoid Factor Complement C3 Complement C4 08/06/19 08/06/19 08/06/19 05:14 05:14 05:14 WBC RBC Hgb Hct MCV MCH MCHC RDW Plt Count MPV Immature Gran % Seg Neutrophils % Lymphocytes % Monocytes % Eosinophils % Basophils % Neutrophils # Lymphocytes # Monocytes # Eosinophils # Basophils # Immature Plt Fraction Sodium Potassium Chloride Carbon Dioxide BUN Creatinine Est GFR ( Amer) Est GFR (Non-Af Amer) BUN/Creatinine Ratio Glucose POC Glucose Calculated Osmolality Uric Acid 8.0 H Calcium Creatine Kinase 51 25-OH Vitamin D Total 14 L PTH Intact 50.7 Urine Color Urine Clarity Urine pH Ur Specific [place] Urine Protein Urine Glucose (UA) Urine Ketones Urine Blood Urine Nitrite Urine Bilirubin Urine Urobilinogen Ur Leukocyte Esterase Urine Creatinine Urine Microalbumin Microalb/Creat Ratio Protein/Creatinin Ratio Urine Sodium Urine Total Protein Nasal Screen MRSA (PCR) Rheumatoid Factor 15 H Complement C3 Complement C4 08/06/19 08/06/19 05:14 10:57 WBC RBC Hgb Hct MCV MCH MCHC RDW Plt Count MPV Immature Gran % Seg Neutrophils % Lymphocytes % Monocytes % Eosinophils % Basophils % Neutrophils # Lymphocytes # Monocytes # Eosinophils # Basophils # Immature Plt Fraction Sodium Potassium Chloride Carbon Dioxide BUN Creatinine Est GFR ( Amer) Est GFR (Non-Af Amer) BUN/Creatinine Ratio Glucose POC Glucose Calculated Osmolality Uric Acid Calcium Creatine Kinase 25-OH Vitamin D Total PTH Intact Urine Color Urine Clarity Urine pH Ur Specific [place] Urine Protein Urine Glucose (UA) Urine Ketones Urine Blood Urine Nitrite Urine Bilirubin Urine Urobilinogen Ur Leukocyte Esterase Urine Creatinine Urine Microalbumin Microalb/Creat Ratio Protein/Creatinin Ratio Urine Sodium Urine Total Protein Nasal Screen MRSA (PCR) NOT DETECTED Rheumatoid Factor Complement C3 60 L Complement C4 18 L - Impressions Impressions Retroperitoneum Ultrasound 08/05/19 16:44
[2019-08-06] MEDS: Insulin DETEMIR 100 UNIT/ML X5UNITS SQ SCH (19:58)
[2019-08-07 02:28] LABS: Basophils % 0.2 %
[2019-08-07 02:30] LABS: Eosinophils # 0.1 K/mcL (0.0-0.6); Hematocrit 18.5 % (37.5-50.1); Hemoglobin 6.3 g/dL (12.9-16.9); Immature Granulocytes % 0.2 % (0-4); Immature Platelets 9.1 % (1.1-6.1); Lymphocytes # 1.1 K/mcL (0.6-4.6); Lymphocytes % 20.3 %; Mean Corpuscular HGB Conc 34.1 g/dL (31.6-35.5); Mean Corpuscular Volume 91.1 fL (83.0-100.0); Mean Platelet Volume 13.1 fL (9.4-12.4); Monocytes # 0.4 K/mcL (0.0-1.3); Monocytes % 6.6 %; Neutrophils # 3.8 K/mcL (1.6-8.9); Red Blood Count 2.03 M/mcL (4.19-5.50); Red Cell Distribution Width 15.9 % (11.5-14.5); Segmented Neutrophils % 70.7 %; White Blood Count 5.4 K/mcL (4.3-11.1)
[2019-08-07 02:37] LABS: Platelet Count 71 K/mcL (140-400)
[2019-08-07 02:50] LABS: BUN/Creatinine Ratio 26 (6-26); Blood Urea Nitrogen 68 mg/dL (6-20); Calcium 7.9 mg/dL (8.6-10.3); Carbon Dioxide 21 mEq/L (23-29); Chloride 104 mEq/L (98-107); Glucose 100 mg/dL (70-105); Osmolality,Calculated 292 (280-300); Potassium 4.2 mEq/L (3.5-5.1); Sodium 131 mEq/L (136-145); eGFR For African Americans 31 (> 60); eGFR For Non-African Americans 25 (> 60)
[2019-08-07] MEDS: levETIRAcetam 250 MG TABLET PO SCH ×2 (05:27→17:09)
[2019-08-07] MEDS: Sodium Bicarbonate 50 MEQ in 0.45 % Sodium Chloride 1,000 ML IVC SCH ×2 (05:27→09:12)
[2019-08-07] MEDS ORDERED: 0.9 % Sodium Chloride 250 ML ONE (05:41)
--- NOTE | 2019-08-07 08:47 | Internal Med Progress Note ---
<Dorothy Frances - Last Filed: 08/07/19 12:32> Hospitalist Progress Note - Encounter Date of Encounter: 08/07/19 - Exam Vitals: Temp Pulse Resp BP Pulse Ox 98.0 F 81 16 124/76 99 08/07/19 11:30 08/07/19 11:30 08/07/19 11:30 08/07/19 11:30 08/07/19 11:30 - Assessment and Plan (1) Hyperkalemia Current Visit: Yes Status: Acute (2) CKD (chronic kidney disease) stage 4, GFR 15-29 ml/min Current Visit: Yes Status: Acute (3) Diabetes mellitus Current Visit: No Status: Chronic (4) Seizure disorder Current Visit: No Status: Chronic (5) Suicidal ideation Current Visit: Yes Status: Resolved (6) Anemia Current Visit: No Status: Chronic (7) HFrEF (heart failure with reduced ejection fraction) Current Visit: No Status: Chronic (8) Severe protein-calorie malnutrition Current Visit: No Status: Chronic - Time Spent with Patient Total time spent is greater than 50% in coordination of care (as documented) at patient's floor/unit and/or counseling patient: Internal Medicine: Result - Labs CBC & Chem 7: 08/07/19 10:27 08/07/19 01:19 Labs: Short CBC 08/07/19 08/07/19 Range/Units 01:19 10:27 WBC 5.4 (4.3-11.1) K/mcL Hgb 6.3 L 8.3 L D (12.9-16.9) g/dL Hct 18.5 L 24.7 L (37.5-50.1) % Plt Count 71 L (140-400) K/mcL Neutrophils # 3.8 (1.6-8.9) K/mcL BMP 08/07/19 01:19 Sodium 131 L Potassium 4.2 Chloride 104 Carbon Dioxide 21 L BUN 68 H Creatinine 2.62 H Glucose 100 Calcium 7.9 L Consult Discharge Plan - Plan Referrals: NONE,PCP [Primary Care Provider] - - Attending Attestation I examined this patient and my medical decision-making was reviewed with the Resident Physician Dr Verma. I agree with the documented findings, disposition and treatment plan as described except to the extent set forth below. Mr Moore is admitted for PRANAV on CKD awake, RN at bedside, he has no complaints. no cp, sob or lightheadedness gen- alert, awake,appears stated age cv- reg rate and rhythm, no jvd or le edema lungs- ctabl, normal resp effort neuro- AAOxperson, place situation, CN grossly intact PRANAV on CKD, improved w IVFs- cont to hold acei + lasix, nephro signed off, fu w Dr Manuel in 4-6w, check bmp in one week then two weeks prior to appt Depression without SI/HI- appreciate psych eval;, does NOT require danica pscyh on dc, cont lexapro, outpt fu Incidental elevated RF on Nephro lab work up- outpt fu with pcp Acute on Chronic anemia without overt bleeding and with hemodynamic stability- s/p 1 unit prbc today with greater than expected response, cont to monitor hgb, will require outpt fu Abnormal tele- short run VT, has pacer and AICD, is DNR CCA DNI code status, cont tele while inpt, K at goal, check mag level, cont home BB, has known significant HFrEF EF 15% and will need to fu on dc Chronic hyponatremia at baseline further dx and plan as noted by resident <Agustín Verma S - Last Filed: 08/07/19 18:14> Hospitalist Progress Note - Encounter Date of Encounter: 08/07/19 Time of Encounter: 08:47 - Subjective Interval History: Mr. Moore is a 58-year-old male who was admitted to our service from the psychiatry service because during his psychiatric admission, his medical comorbidities worsened to include potassium elevated 5.9, BUN elevated to 99, creatinine elevated to 3.55. He is sitting up on the side of the bed comfortably when I enter the room, he denies any complaints. Specifically, he denies chest pain, shortness of breath, palpitations, suicidal ideations, hallucinations, headache, dizziness, trouble swallowing or speaking, nausea, vomiting, constipation, black stool, bloody stool, new numbness/tingling/weakness anywhere. He is pleasant but with a guarded affect, answers in very short sentences. She reports diarrhea since starting the Kayexalate, with 2 episodes of watery diarrhea last night Sitter present in the room - Exam Vitals: Temp Pulse Resp BP Pulse Ox 98.4 F 84 18 120/71 99 08/07/19 06:19 08/07/19 06:19 08/07/19 06:19 08/07/19 06:19 08/07/19 06:19 Exam: Gen: Awake and alert, no acute distress, Head: Normocephalic, atraumatic Eyes: EOMI, no scleral icterus ENT: Mucous membranes moist, no oropharyngeal erythema Pulm: CTAB, not tachypneic, no respiratory distress, no increased work of breathing Abd: Soft, nontender to palpation, nondistended, no rebound or guarding. EXT: Grossly intact motor strength in all 4 extremities, Skin: Warm, dry, intact, no rashes or lesions noted Neuro: Cranial nerves II-XII grossly intact, no focal neurologic deficits CV: S1 barely audible, 2 late heart sounds auscultated - split S2 vs S3. Irregularly irregular rhythm-seemed to be inconsistently in trigeminy with two beats, followed by a louder ventricular beat, followed by a short pause. Rhythm strip analysis shows tracing consistent with this finding. Strip shows abnormal repolarization following every 3-5 paced ventricular beats, with a pause before the next ventricular beat. Also noted on rhythm strip analysis is a run of shat appears to be V-Tach lasting approximately 5 seconds at 07:40:22, followed by another 5 seconds of Vfib vs motion artifact. Psych: Normal affect, Answers questions with intact judgement, appropriate insight, and linear thought, though keeps answers to very short sentences. - Assessment and Plan (1) Diabetes mellitus Current Visit: Yes Status: Chronic Assessment and Plan: * continue basal-bolus insulin and accuchecks (2) HFrEF (heart failure with reduced ejection fraction) Current Visit: No Status: Chronic Assessment and Plan: * holding lasix and lisinopril * strict I&O's * Continue Toprol (3) Hyperkalemia Current Visit: No Status: Acute Assessment and Plan: K 4.2 today Discussed desired titration of kayexalate to effect of 2-4 BM/day. * Continue Kayexalate per recommendations nephrology * Follow nephrology 4-6 weeks after discharge (4) Suicidal ideation Current Visit: Yes Status: Resolved Assessment and Plan: Patient denies suicidal ideation or hallucinations at this time Psychiatry evaluation deemed patient does not need Danica psych at discharge * Continue sitter * Continue SI precautions * Eventual discharge to [facility] (5) CKD (chronic kidney disease) stage 4, GFR 15-29 ml/min Current Visit: Yes Status: Chronic Assessment and Plan: * Continue slow rehydration with half normal saline plus bicarbonate (6) Irregular cardiac rhythm Current Visit: Yes Status: Suspected Assessment and Plan: Atrial fibrillation was listed in patient's problem list this visit, and auscultation does reveal an irregularly irregular rhythm Searching old records shows no documentation of A. fib diagnosis Multiple EKGs, echocardiogram without mention of atrial fibrillation Record review also shows no history of xarelto or warfarin use Current telemetry strips do not show atrial fibrillation Auscultatory difference between irregular beats and regular beats, with corresponding telemetry tracing suggests alternate diagnosis Apparent run of v-tach on telemetry monitoring this morning Patientreporting no pounding/fluttering sensations in chest * Unclear why patient has implanted defibrillator/pacemaker, there is mention in old cardio notes of conduction abnormality * There is not a current need to start Xarelto or warfarin * Patient's resuscitation status is DNRccDNI, implanted defibrillator in place, (7) Anemia Current Visit: No Status: Chronic Assessment and Plan: Hemoglobin rechecked today was 8.3 * Continue a.m. CBC checks * Goal hemoglobin greater than 8 - Time Spent with Patient Total time spent is greater than 50% in coordination of care (as documented) at patient's floor/unit and/or counseling patient: Internal Medicine: Result - Labs CBC & Chem 7: 08/07/19 10:27 08/07/19 15:53 Labs: Short CBC 08/07/19 Range/Units 01:19 WBC 5.4 (4.3-11.1) K/mcL Hgb 6.3 L (12.9-16.9) g/dL Hct 18.5 L (37.5-50.1) % Plt Count 71 L (140-400) K/mcL Neutrophils # 3.8 (1.6-8.9) K/mcL BMP 08/07/19 01:19 Sodium 131 L Potassium 4.2 Chloride 104 Carbon Dioxide 21 L BUN 68 H Creatinine 2.62 H Glucose 100 Calcium 7.9 L <Dorothy Frances M - Last Filed: 08/07/19 12:32> (3) Diabetes mellitus Qualifiers: Diabetes mellitus type: type 2 Diabetes mellitus mcfp insulin use: with mcfp use Diabetes mellitus complication status: with kidney complications Diabetes mellitus complication detail: with chronic kidney disease Chronic kidney disease stage: stage 4 (severe) Qualified Code(s): E11.22 - Type 2 diabetes mellitus with diabetic chronic kidney disease; N18.4 - Chronic kidney disease, stage 4 (severe); 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 (6) Anemia Qualifiers: Anemia type: due to chronic kidney disease Chronic kidney disease stage: stage 4 (severe) Qualified Code(s): N18.4 - Chronic kidney disease, stage 4 (severe); D63.1 - Anemia in chronic kidney disease (7) HFrEF (heart failure with reduced ejection fraction) Qualifiers: Heart failure chronicity: chronic Qualified Code(s): I50.22 - Chronic systolic (congestive) heart failure <Agustín Verma - Last Filed: 08/07/19 18:14> (1) Diabetes mellitus Qualifiers: Diabetes mellitus type: type 2 Diabetes mellitus mcfp insulin use: with certified histologic technician use Diabetes mellitus complication status: with kidney complications Diabetes mellitus complication detail: with chronic kidney disease Chronic kidney disease stage: stage 4 (severe) Qualified Code(s): E11.22 - Type 2 diabetes mellitus with diabetic chronic kidney disease; N18.4 - Chronic kidney disease, stage 4 (severe); 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
[2019-08-07] MEDS: Metoprolol XL (24 HR) Succ 25 MG TAB.ER.24H PO SCH (09:12)
[2019-08-07] MEDS: Insulin LISPRO 300 UNITS/3 ML VIAL SQ SCH ×4 (09:13→21:20)
[2019-08-07 11:30] LABS: Hematocrit 24.7 % (37.5-50.1); Hemoglobin 8.3 g/dL (12.9-16.9)
--- NOTE | 2019-08-07 11:43 | Podiatry Consult Note ---
Date of Encounter: 08/07/19 Time of Encounter: 11:20 Assessment and Plan (1) Abrasion Current visit: No Status: Acute Assessment: Abrasion to RLE x 3, wound edges in tact, wound bed 100% granular No streaking, no fluctuance, no cellulitis noted WBC 5.4, afebrile Dried eschar noted to right foot DIPJ #2, left foot DIPJ #3, flaking, does not appear infectious in nature Plan: Will order xray to r/o any OM ESR, CRP ordered Low suspicion of infection Will order heel medix boots to prevent any ulceration, wear while in bed Cleansed with 0.9 NS Painted periwound with skin prep Covered with allevyn dressing, nursing to change every 72 hours Betadine painted to bilateral DIPJ wounds (2) Venous insufficiency Current visit: Yes Status: Suspected Assessment: Bilateral lower extremity edema Dependent rubor bilaterally Plan: TERRI and TCP02 ordered History of Present Illness HPI: Mr. Moore is a 58 year old male who presented to the hospital on 08/04/19 from 1 a. Patient was originally admitted for suicidal ideation. Patient was found to have elevated potassium and was transferred to the hospital. Patient was consulted to podiatry on 08/07/19 with concerns of eschar to bilateral feet. Patient has PMH significant for DM, CHF, A.FIB, and CKD. Denies any alcohol or tobacco abuse. Denies any illicit drug use. Patient denies any foot pain. Reports he has fallen recently attributes wounds to bilateral lower extremities to this. Denies any fevers, chills, nausea, vomiting, or diarrhea. Denies any calf pain, chest pain, or shortness of breath. WBC 5.4. Hemoglobin A1c 7.1 on 08/03. On 12/06/18 TC PO2 and ABIs were normal bilaterally. No other questions or concerns at this time. Past Med Surg Social Fam HX - Past Medical History Medical history: atrial fibrillation, CHF, diabetes, myocardial infarction, renal disease, seizures, other Additional medical history: STOMACH ULCERS Psychiatric history: depression, previous psychiatric hospitalization (Admitted to on 08/04/2019) - Past Surgical History Surgical History: orthopedic, other (Diabetic foot infections with left great toe and left second toe amputations. Right index finger surgery.), pacemaker/AICD Additional surgical history: Left great toe, left second toe, right point f james, right middle order - Social History Smoking Status: Former smoker Smokeless Tobacco Status: No Alcohol use: none Drug use: none - Family History Mother Name: Makayla Moore Living Status: Hx Family Cardiac Disorders: Yes ([place]) Hx Family Endocrine Disorder: Yes ([place]) Father Name: Paul Moore Living Status: Hx Family Cardiac Disorders: Yes ([place]) Hx Family Endocrine Disorder: Yes ([place]) Medications and Allergies Atorvastatin [Lipitor] 10 mg PO DAILY 08/05/19 [History] Furosemide [Lasix] 20 mg PO BID 08/05/19 [History] Insulin ASPART [Novolog Flexpen] 0 units SQ TIDWM MDD 40 units/day 08/05/19 [History] Insulin Degludec [Tresiba Flextouch U-200] 15 units SQ HS 08/05/19 [History] Lisinopril [Zestril] 5 mg PO DAILY 08/05/19 [History] Metoprolol Succinate [Toprol Xl] 25 mg PO DAILY 08/05/19 [History] PHENobarbital [Phenobarbital] 16.2 mg PO DAILY 08/05/19 [History] Tamsulosin HCl [Flomax] 0.4 mg PO BID 08/05/19 [History] levETIRAcetam [Roweepra] 500 mg PO BID 08/05/19 [History] raNITIdine HCl [Zantac] 150 mg PO BID 08/05/19 [History] Allergy/AdvReac Type Severity Reaction Status Date / Time No Known Allergies Allergy Verified 08/03/19 15:44 All Systems Reviewed: The remainder of the systems were reviewed and are negative - Constitutional Constitutional: no fever(s) - Cardiovascular Cardiovascular: leg edema, pedal edema, no chest pain, no dyspnea - Respiratory Respiratory: no cough, no dyspnea - Musculoskeletal Musculoskeletal: numbness, no tingling Physical Exam - Constitutional Vitals: Temp Pulse Resp BP Pulse Ox 98.0 F 81 16 124/76 99 08/07/19 11:30 08/07/19 11:30 08/07/19 11:30 08/07/19 11:30 08/07/19 11:30 General appearance: average body habitus, no acute distress Exam: Constitiutional: Alert and oriented x 3. Well nourished. No acute distress noted Vascular: non-palpable DP/PT bilaterally, CFT <3 sec to all digits, warm to cool from tibia to toes bilaterally, left foot digit amputations, no calf pain with squeeze BLE, 2/4 edema BLE, dependent rubor noted Neurologic; Absent sensation to touch, normal plantar response Dermatologic: Dried eschar noted to right 2nd digit, left 3rd digit, DIPJ, no fluctuance noted, no signs of infection noted, flaking, abrasion x 3 noted to right lower extremity, wound bed 100% granular Musculoskeletal: 2/5 muscle strength and normal tone bilaterally. Results - Labs Result Diagrams: 08/07/19 10:27 08/07/19 01:19 Labs: Abnormal lab results RBC 2.03 M/mcL (4.19-5.50) L 08/07/19 01:19 Hgb 8.3 g/dL (12.9-16.9) L D 08/07/19 10:27 Hct 24.7 % (37.5-50.1) L 08/07/19 10:27 RDW 15.9 % (11.5-14.5) H 08/07/19 01:19 Plt Count 71 K/mcL (140-400) L 08/07/19 01:19 MPV 13.1 fL (9.4-12.4) H 08/07/19 01:19 Immature Plt Fraction 9.1 % (1.1-6.1) H 08/07/19 01:19 Sodium 131 mEq/L (136-145) L 08/07/19 01:19 Potassium 5.2 mEq/L (3.5-5.1) H 08/06/19 05:14 Chloride 97 mEq/L (98-107) L 08/06/19 05:14 Carbon Dioxide 21 mEq/L (23-29) L 08/07/19 01:19 BUN 68 mg/dL (6-20) H 08/07/19 01:19 Creatinine 2.62 mg/dL (0.70-1.30) H 08/07/19 01:19 Est GFR ( Amer) 31 (> 60) L 08/07/19 01:19 Est GFR (Non-Af Amer) 25 (> 60) L 08/07/19 01:19 BUN/Creatinine Ratio 27 (6-26) H 08/06/19 05:14 Glucose 273 mg/dL (70-105) H 08/06/19 05:14 POC Glucose 317 mg/dL (70-99) H 08/06/19 18:40 Uric Acid 8.0 mg/dL (2.3-7.6) H 08/06/19 05:14 Calcium 7.9 mg/dL (8.6-10.3) L 08/07/19 01:19 HDL Cholesterol 35 mg/dL (40-59) L 08/05/19 02:30 25-OH Vitamin D Total 14 ng/mL (30-80) L 08/06/19 05:14 Urine Glucose (UA) 100 mg/dL (Normal) H 08/05/19 14:10 Microalb/Creat Ratio 131 mcg/mg (Less than 30) H 08/05/19 14:18 Protein/Creatinin Ratio 0.48 mg/mg (0.00-0.20) H 08/05/19 14:18 Rheumatoid Factor 15 IU/mL (Less than 14) H 08/06/19 05:14 Complement C3 60 mg/dL (87-200) L 08/06/19 05:14 Complement C4 18 mg/dL (19-52) L 08/06/19 05:14 Crossmatch See Detail 08/07/19 04:23 H & H 08/07/19 08/07/19 Range/Units 01:19 10:27 Hgb 6.3 L 8.3 L D (12.9-16.9) g/dL Hct 18.5 L 24.7 L (37.5-50.1) % All other labs normal. Consult Discharge Plan - Plan Referrals: NONE,PCP [Primary Care Provider] -
[2019-08-07 12:38] LABS: C-Reactive Protein < 5 mg/L (Less than 10)
[2019-08-07 17:27] LABS: Albumin 3.6 g/dL (3.5-5.7); Albumin/Globulin Ratio 1.4 (1.1-2.2); Bilirubin,Total 0.3 mg/dL (0.3-1.0); Calcium 7.9 mg/dL (8.6-10.3); Globulin 2.5 g/dL (2.4-3.5); Potassium 5.7 mEq/L (3.5-5.1); Total Protein 6.1 g/dL (6.4-8.9)
[2019-08-07] MEDS: Insulin DETEMIR 100 UNIT/ML X5UNITS SQ SCH (21:19)
[2019-08-08 01:18] LABS: Hematocrit 21.7 % (37.5-50.1); Hemoglobin 7.3 g/dL (12.9-16.9)
[2019-08-08 01:19] LABS: Basophils % 0.4 %; Hematocrit 21.9 % (37.5-50.1); Immature Granulocytes % 0.4 % (0-4); Mean Platelet Volume 13.1 fL (9.4-12.4)
[2019-08-08 01:20] LABS: Eosinophils # 0.1 K/mcL (0.0-0.6); Hemoglobin 7.2 g/dL (12.9-16.9); Immature Platelets 11.7 % (1.1-6.1); Lymphocytes # 1.3 K/mcL (0.6-4.6); Lymphocytes % 25.7 %; Mean Corpuscular HGB Conc 32.9 g/dL (31.6-35.5); Mean Corpuscular Volume 94.4 fL (83.0-100.0); Monocytes # 0.3 K/mcL (0.0-1.3); Monocytes % 6.7 %; Neutrophils # 3.3 K/mcL (1.6-8.9); Red Blood Count 2.32 M/mcL (4.19-5.50); Red Cell Distribution Width 16.2 % (11.5-14.5); Segmented Neutrophils % 64.8 %; White Blood Count 5.1 K/mcL (4.3-11.1)
[2019-08-08 01:30] LABS: Calcium 7.8 mg/dL (8.6-10.3); Potassium 5.3 mEq/L (3.5-5.1)
[2019-08-08 01:37] LABS: Platelet Count 84 K/mcL (140-400)
[2019-08-08] MEDS: Sodium Bicarbonate 50 MEQ in 0.45 % Sodium Chloride 1,000 ML IVC SCH (05:37)
[2019-08-08] MEDS: levETIRAcetam 250 MG TABLET PO SCH ×2 (05:38→16:20)
[2019-08-08] MEDS ORDERED: Calcium Gluconate 1gm/50mL 1 GM/50 ML BAG IVPB ONE (07:31)
--- NOTE | 2019-08-08 08:00 | Discharge Summary ---
<Agustín Verma - Last Filed: 08/08/19 16:11> - NOTES TO OUTPATIENT PROVIDER Notes to Outpatient Provider: Mr. Moore was admitted with hyperkalemia and decreased kidney function. Patient responded well to gentle rehydration. The patient will require follow-up with several specialties: - Nephrology, who indicated follow-up for 4-6 weeks after discharge, to follow-up on rheumatologic panel and other labs ordered while inpatient. - psych, for ongoing evaluation of depression, suicidal ideations were present on admit but are not present 3 days. - Cardiology, patient had intermittent cardiac conduction abnormalities on telemetry monitoring. - GI for colonoscopy, as patient had anemia while in the hospital. - Vascular surgery, as patient has venous insufficiency in the lower extremities. - Podiatry, for evaluation and management of chronic foot ulcers. - PCP, for coordination of management. He is being discharged on a renal, low potassium diet. He will need a BMP 1 week after discharge and 4 weeks after discharge, with follow-up with nephrology 6 weeks after discharge Orders not resulted at time of discharge: Pending orders 08/05/19 14:19 Immunofixation,Urine (BJP) Routine 08/06/19 05:14 YOLANDA IgG GHASSAN rflx IFA AM 0400 [place] Lambda Qnt FLC w Ratio AM 0400 MPO/PR3 (ANCA) Antibodies Routine Date of Encounter: 08/08/19 Time of Encounter: 08:00 - Discharge Diagnosis (1) Hyperkalemia Priority: Primary Status: Acute Assessment and Plan: Patient's potassium was improved today at 5.3, down from 5.7 yesterday Patient is asymptomatic with no palpitations or new arrhythmias * Recheck BMP in 1 week after discharge and 4 weeks after discharge * Follow-up with nephrology 6 weeks after discharge * Low potassium, renal diet * repeat K at 15:00 5.0 (2) Suicidal ideation Priority: Primary Status: Resolved Assessment and Plan: Patient states he is free of any intention or desire to harm himself, no suicidal ideations, no hallucinations. States none of these have been present for the last 3 days * Per psych recommendation, patient does not need placement in geriatric psychiatric facility * Patient states that he desires discharge to home * Discharge will include referral for home health assistance * Continue Lexapro and trazodone started during this admission (3) Diabetes mellitus Priority: Secondary Status: Chronic Assessment and Plan: Patient sugars have been difficult to control, spiking into the 200s and 300s * Return to home insulin regimen Qualifiers: Diabetes mellitus type: type 2 Diabetes mellitus termite treater insulin use: with termite treater use Diabetes mellitus complication status: with kidney complications Diabetes mellitus complication detail: with chronic kidney disease Chronic kidney disease stage: stage 4 (severe) Qualified Code(s): E11.22 - Type 2 diabetes mellitus with diabetic chronic kidney disease; N18.4 - Chronic kidney disease, stage 4 (severe); Z79.4 - half-way (current) use of insulin (4) HFrEF (heart failure with reduced ejection fraction) Priority: Secondary Status: Chronic Assessment and Plan: Patient without shortness of breath, lower extremity edema, signs of fluid overload * Continue Toprol, resume Lasix and lisinopril Qualifiers: Heart failure chronicity: chronic Qualified Code(s): I50.22 - Chronic systolic (congestive) heart failure (5) CKD (chronic kidney disease) stage 4, GFR 15-29 ml/min Priority: Secondary Status: Chronic Assessment and Plan: BUN and creatinine are improved today at 52 and 2.11 respectively, decreased from 56 and 2.31 yesterday * Follow-up BMP 1 week after discharge and 4 weeks after discharge * Avoid nephrotoxins * Renal, low potassium diet (6) Irregular cardiac rhythm Priority: Secondary Status: Suspected Assessment and Plan: Patient's heart rhythm seemed much more regular today Still no palpitations, pounding, fluttering feelings in the chest * Follow-up with cardiology * Continue Toprol * (7) Anemia Priority: Secondary Status: Chronic Assessment and Plan: Patient without recent history of colonoscopy Anemia requiring transfusions while in the hospital * Follow-up with GI for colonoscopy to evaluate possible source of blood loss anemia * Follow-up with primary care provider for workup and management of anemia * Repeat H/H at 15:00 showed Hgb improved to 8.5 Qualifiers: Anemia type: due to chronic kidney disease Chronic kidney disease stage: stage 4 (severe) Qualified Code(s): N18.4 - Chronic kidney disease, stage 4 (severe); D63.1 - Anemia in chronic kidney disease (8) Diabetic foot ulcer Priority: Secondary Status: Acute Assessment and Plan: Heel Medix boots while in bed Follow-up with podiatry Qualifiers: Diabetic foot ulcer location: toe Diabetes mellitus type: type 2 Laterality: unspecified laterality Non-pressure ulcer stage: unspecified non- pressure ulcer stage Qualified Code(s): E11.621 - Type 2 diabetes mellitus with foot ulcer; L97.509 - Non-pressure chronic ulcer of other part of unspecified foot with unspecified severity Hospital course: Mr. Moore is a 58 year old male who is admitted to our service after he was found to be hyperkalemic with an acute kidney injury on top of his chronic kidney disease while admitted as an inpatient on 1A He responded well to gentle rehydration, and Kayexalate He also experienced resolution of his suicidal ideations He was seen by nephrology, who request follow-up for 6 weeks after discharge. Also seen by podiatry, who also requests follow-up after discharge. He also requires ongoing management of his psychiatric conditions. he was found to be anemic without obvious source outside of Chronic kidney disease, patient has not had a colonoscopy in recent memory and will require outpatient follow-up for colonoscopy Evaluation by the psychiatric team was that the patient does not need geriatric psychiatric facility placement, patient desires to be discharged home, and home health referral will be completed - Time Spent with Patient Total time spent providing and/or coordinating discharge services: - Discharge Medications Prescriptions: New Escitalopram [Lexapro] 20 mg PO DAILY 14 Days #14 tablet traZODone [TraZODone] 50 mg PO HS PRN 14 Days #14 tablet PRN Reason: Insomnia Continued raNITIdine HCl [Zantac] 150 mg PO BID Insulin ASPART [Novolog Flexpen] 0 units SQ TIDWM MDD 40 units/day Furosemide [Lasix] 20 mg PO BID Metoprolol Succinate [Toprol Xl] 25 mg PO DAILY Lisinopril [Zestril] 5 mg PO DAILY levETIRAcetam [Roweepra] 500 mg PO BID Atorvastatin [Lipitor] 10 mg PO DAILY Tamsulosin HCl [Flomax] 0.4 mg PO BID PHENobarbital [Phenobarbital] 16.2 mg PO DAILY Insulin Degludec [Tresiba Flextouch U-200] 15 units SQ HS Home Medications: Atorvastatin [Lipitor] 10 mg PO DAILY 08/05/19 [History] Furosemide [Lasix] 20 mg PO BID 08/05/19 [History] Insulin ASPART [Novolog Flexpen] 0 units SQ TIDWM MDD 40 units/day 08/05/19 [History] Insulin Degludec [Tresiba Flextouch U-200] 15 units SQ HS 08/05/19 [History] Lisinopril [Zestril] 5 mg PO DAILY 08/05/19 [History] Metoprolol Succinate [Toprol Xl] 25 mg PO DAILY 08/05/19 [History] PHENobarbital [Phenobarbital] 16.2 mg PO DAILY 08/05/19 [History] Tamsulosin HCl [Flomax] 0.4 mg PO BID 08/05/19 [History] levETIRAcetam [Roweepra] 500 mg PO BID 08/05/19 [History] raNITIdine HCl [Zantac] 150 mg PO BID 08/05/19 [History] Escitalopram [Lexapro] 20 mg PO DAILY 14 Days #14 tablet 08/08/19 [Rx] traZODone [TraZODone] 50 mg PO HS PRN 14 Days #14 tablet 08/08/19 [Rx] Allergies/Adverse Reactions: Allergy/AdvReac Type Severity Reaction Status Date / Time No Known Allergies Allergy Verified 08/03/19 15:44 Date of admission: 08/04/19 14:51 Primary care physician: PCP NONE Consults: 08/04/19 15:29 Consult to Physician [CONS] Routine Consulting Provider: Brittany Saldivar Reason for Consult: Suicidal. Transferred to medical floor from . Call Completed: Yes 08/04/19 17:40 Consult to Pastoral Services [CONS] Routine Comment: Consult to Financial Examiner [CONS] Routine Reason for SW Consult: Possible home health needs at discharge, pt unablet to properly care for himself and has a memory and knowledge deficit on health status, maintence, and medications. 08/05/19 10:52 Consult to Nephrology [CONS] Routine Consulting Provider: [facility]/LG/GO/JOSE Reason for Consult: CKD stage IV Time Notified: 10:52 Call Completed: Yes 08/06/19 07:48 Consult to Physical Therapy [CONS] Routine Comment: Evaluate, develop and implement POC Reason for Consult: Request eval for rehab disposition and prognosis Does patient have active BEDREST order?: No Is patient medically & hemodynamically stable?: Yes 08/06/19 16:44 Consult to Podiatry [CONS] Routine Consulting Provider: [facility] Reason for Consult: Bilateral foot eschar Time Notified: 16:45 Call Completed: Yes Discharging clinician: Agustín Verma Anticipated date of discharge: 08/08/19 - Constitutional Vitals: Temp Pulse Resp BP Pulse Ox 98.3 F 80 18 116/65 99 08/08/19 07:13 08/08/19 07:13 08/08/19 07:13 08/08/19 07:13 08/08/19 07:13 General appearance: Present: A&O X 3, answers questions appropriately Exam: Gen: Awake and alert, no acute distress, Head: Normocephalic, atraumatic Eyes: EOMI, no scleral icterus ENT: Mucous membranes moist, no oropharyngeal erythema Pulm: CTAB, not tachypneic, no respiratory distress, no increased work of breathing Abd: Soft, nontender to palpation, nondistended, no rebound or guarding. EXT: Grossly intact motor strength in all 4 extremities, trace pitting edema in bilateral LE Skin: Warm, dry, intact, no rashes or lesions noted Neuro: Cranial nerves II-XII grossly intact, no new focal neurologic deficits CV: Heart sounds more clearly audible today, still 2 late heart sounds auscultated - split S2 vs S3. Seemingly regular rhythm. No further runs of V. tach on telemetry monitoring Psych: Normal affect, Answers questions with intact judgement, appropriate insight, and linear thought, though keeps answers to very short sentences. - Patient Status Disposition: Home Health Service Condition: Good Functional capacity at discharge: uses cane/walker Overall status at discharge: patient is progressing back to baseline - Discharge Instructions Instructions: Acute Kidney Injury (DC), Diabetes Mellitus Type 2 in Adults (DC), Anemia (GEN) Follow Up With: NONE,PCP [Primary Care Provider] - (Please schedule with PCP in 1-2 weeks for follow up) Mary Ellen Lepe, AIR TRAFFIC CONTROL SPECIALIST [Advanced Practice Nurse] - (Britt will call with follow up) - Diet and Activity Activity: as per physical therapy Diet: other (low salt, low potassium, diabetic/cardiac/renal diet. ) <Dorothy Frances - Last Filed: 08/08/19 18:18> Orders not resulted at time of discharge: Pending orders 08/05/19 14:19 Immunofixation,Urine (BJP) Routine 08/06/19 05:14 YOLANDA IgG GHASSAN rflx IFA AM 0400 [place] Lambda Qnt FLC w Ratio AM 0400 MPO/PR3 (ANCA) Antibodies Routine Date of Encounter: 08/08/19 - Discharge Diagnosis (1) Hyperkalemia Status: Acute (2) CKD (chronic kidney disease) stage 4, GFR 15-29 ml/min Status: Chronic (3) Diabetes mellitus Status: Chronic Qualifiers: Diabetes mellitus type: type 2 Diabetes mellitus termite treater insulin use: with termite treater use Diabetes mellitus complication status: with kidney complications Diabetes mellitus complication detail: with chronic kidney disease Chronic kidney disease stage: stage 4 (severe) Qualified Code(s): E11.22 - Type 2 diabetes mellitus with diabetic chronic kidney disease; N18.4 - Chronic kidney disease, stage 4 (severe); Z79.4 - half-way (current) use of insulin (4) Seizure disorder Status: Chronic (5) Suicidal ideation Status: Resolved (6) Anemia Status: Chronic Qualifiers: Anemia type: due to chronic kidney disease Chronic kidney disease stage: stage 4 (severe) Qualified Code(s): N18.4 - Chronic kidney disease, stage 4 (severe); D63.1 - Anemia in chronic kidney disease (7) HFrEF (heart failure with reduced ejection fraction) Status: Chronic Qualifiers: Heart failure chronicity: chronic Qualified Code(s): I50.22 - Chronic systolic (congestive) heart failure (8) Severe protein-calorie malnutrition Status: Chronic Hospital course: Mr. Moore is a 58 year old male - Time Spent with Patient Total time spent providing and/or coordinating discharge services: Date of admission: 08/04/19 14:51 Primary care physician: PCP NONE Consults: 08/04/19 15:29 Consult to Physician [CONS] Routine Consulting Provider: Brittany Saldivar Reason for Consult: Suicidal. Transferred to medical floor from . Call Completed: Yes 08/04/19 17:40 Consult to Pastoral Services [CONS] Routine Comment: Consult to Financial Examiner [CONS] Routine Reason for SW Consult: Possible home health needs at discharge, pt unablet to properly care for himself and has a memory and knowledge deficit on health status, maintence, and medications. 08/05/19 10:52 Consult to Nephrology [CONS] Routine Consulting Provider: Kidney Britt/LG/GO/JOSE Reason for Consult: CKD stage IV Time Notified: 10:52 Call Completed: Yes 08/06/19 07:48 Consult to Physical Therapy [CONS] Routine Comment: Evaluate, develop and implement POC Reason for Consult: Request eval for rehab disposition and prognosis Does patient have active BEDREST order?: No Is patient medically & hemodynamically stable?: Yes 08/06/19 16:44 Consult to Podiatry [CONS] Routine Consulting Provider: [facility] Reason for Consult: Bilateral foot eschar Time Notified: 16:45 Call Completed: Yes - Constitutional Vitals: Temp Pulse Resp BP Pulse Ox 98.9 F 88 18 124/64 99 08/08/19 15:58 08/08/19 15:58 08/08/19 15:58 08/08/19 15:58 08/08/19 15:58 - Attending Attestation I examined this patient and my medical decision-making was reviewed with the Resident Physician Dr Verma. I agree with the documented findings, disposition and treatment plan as described except to the extent set forth below. Mr Moore is admitted for PRANAV on CKD from inpt psych unit. He was noted this admission to have chronic anemia and with slow downtrend this admit he did receive prbc transfusions. His disposition as determined by psychiatry is to outpt setting, no longer requiring inpt psych services. He was set to go to SNF as recommended however, pt then declined and is being discharged to home with C awake, pleasant, no complaints. denies any sob, dizziness, palpitations or chest pain. Denies bleeding in urine or bms. Denies si/hi. gen- alert, awake,appears stated age cv- reg rate and rhythm, no jvd lungs- ctabl, normal resp effort neuro- AAOxperson, place situation PRANAV on CKD, improved w IVFs- resume acei + lasix on dc, nephro signed off, fu w Dr Manuel in 4-6w, check bmp in one week then two weeks prior to appt, renal diet on dc Depression without SI/HI- appreciate psych eval;, does NOT require abram pscyh on dc, cont lexapro, outpt fu Incidental elevated RF on Nephro lab work up- outpt fu with pcp Acute on Chronic anemia without overt bleeding and with hemodynamic stability- s/p 1 unit prbc with response greater than expected yesterday, hgbs have remained at his low 7s baseline s/p transfusion, will give addl unit prior to dc given his cardiac history and needs outpt fu and further work up of chronic anemia without overt bleeding Abnormal tele intermittently- has pacer and AICD, is DNR CCA DNI code status, cont home BB, has known significant HFrEF EF 15% and will need to fu on dc Chronic hyponatremia at baseline Hyperkalemia intermittently this admit- s/p kayexalate and ca gluconate, renal diet on dc bmp and nephro fu as above further dx and plan as noted by resident time spent on dc 50 min
[2019-08-08] MEDS: Insulin LISPRO 300 UNITS/3 ML VIAL SQ SCH ×4 (08:15→16:20)
[2019-08-08] MEDS: Metoprolol XL (24 HR) Succ 25 MG TAB.ER.24H PO SCH (08:16)
--- NOTE | 2019-08-08 08:29 | Podiatry Progress Note ---
Date of Encounter: 08/08/19 Time of Encounter: 08:26 - Assessment and Plan (1) Abrasion Current Visit: No Status: Acute Assessment: Abrasion to RLE x 3, wound edges in tact, wound bed 100% granular No streaking, no fluctuance, no cellulitis noted WBC 5.1, afebrile Dried eschar noted to right foot DIPJ #2, left foot DIPJ #3, flaking, does not appear infectious in nature XR of right negative for OM, XR of left suspicious but does not coorelate clinically, likely reactive changes from previous surgery ESR 5, CRP <5 Neuropathy pain to BLE Plan: Could consider lyrica or gabapentin for neuropathy pain, can be seen outpatient for topical ointments to help with pain Low suspicion of infection heel medix boots to prevent any ulceration, wear while in bed Will sign off, thank you for consultation, please reconsult if needed Cleansed digits with 0.9 NS Betadine painted to bilateral DIPJ wounds (2) Venous insufficiency Current Visit: Yes Status: Suspected Assessment: Bilateral lower extremity edema Dependent rubor bilaterally TERRI mild disease to right foot and ankle, mild disease to left foot, moderate disease left ankle TCPO2 R DP 49, PT 37, L DP 62, PT 72 Plan: Recommend outpatient vascular evaluation Subjective Principal diagnosis: SI Interval history: Patient awake in bed. Alert and oriented. Patient reports tingling pain to bilateral lower extremities, discussed neuropathy pain and progression. Aarti balized understanding. Denies any fevers, chills, nausea, vomiting, or diarrhea. Denies any calf pain, chest pain, or shortness of breath. Nurse at bedside. No other questions or concerns at this time. Objective - Vital Signs Vital Signs: Vital Signs Temp Pulse Resp BP Pulse Ox 08/08/19 07:13 98.3 F 80 18 116/65 99 08/08/19 05:14 98.3 F 82 17 113/58 98 08/08/19 03:56 82 17 113/58 98 08/07/19 23:23 98.3 F 83 17 111/58 98 08/07/19 19:15 88 17 127/68 98 08/07/19 16:22 98.3 F 62 18 127/61 100 08/07/19 11:30 98.0 F 81 16 124/76 99 08/07/19 09:11 97.9 F 95 18 113/63 98 08/07/19 09:05 98 Intake and Output 08/07/19 08/08/19 08/08/19 23:59 07:59 15:59 Intake Total 720 / 4340 1290 / 1290 Output Total 1325 / 3925 1725 / 1725 Balance -605 / 415 -435 / -435 Intake: IV Fluids 1050 / 1050 Sodium Bicarbonate 50 MEQ In 0. 1050 / 1050 45% Sodium Chloride 1,000 ML @ 50 mls/hr IVC .Q21H KB Rx#: [id number] Oral 720 / 1890 240 / 240 Output: Urine 1325 / 3925 1725 / 1725 Other: Stool Size Copious Stool Consistency liquid soft # Voids 1 # Bowel Movements 1 Weight 64 kg Blood Glucose* 348 173 Patient Weight 08/08/19 23:59 Weight 64 kg - Exam Exam: Constitiutional: Alert and oriented x 3. Well nourished. No acute distress noted Vascular: non-palpable DP/PT bilaterally, CFT <3 sec to all digits, warm to cool from tibia to toes bilaterally, left foot digit amputations, no calf pain with squeeze BLE, 2/4 edema BLE, dependent rubor noted Neurologic; Absent sensation to touch, normal plantar response Dermatologic: Dried eschar noted to right 2nd digit, left 3rd digit, DIPJ, no fluctuance noted, no signs of infection noted, flaking, abrasion x 3 noted to [facility] lower extremity, wound bed 100% granular Musculoskeletal: 2/5 muscle strength and normal tone bilaterally. - Lab Result Diagrams: 08/08/19 00:16 08/08/19 00:16 Labs: Abnormal lab results RBC 2.32 M/mcL (4.19-5.50) L 08/08/19 00:16 Hgb 7.2 g/dL (12.9-16.9) L 08/08/19 00:16 Hgb 7.3 g/dL (12.9-16.9) L 08/08/19 00:16 Hct 21.7 % (37.5-50.1) L 08/08/19 00:16 Hct 21.9 % (37.5-50.1) L 08/08/19 00:16 RDW 16.2 % (11.5-14.5) H 08/08/19 00:16 Plt Count 84 K/mcL (140-400) L 08/08/19 00:16 MPV 13.1 fL (9.4-12.4) H 08/08/19 00:16 Immature Plt Fraction 11.7 % (1.1-6.1) H 08/08/19 00:16 Sodium 130 mEq/L (136-145) L 08/08/19 00:16 Potassium 5.3 mEq/L (3.5-5.1) H 08/08/19 00:16 Chloride 97 mEq/L (98-107) L 08/06/19 05:14 Carbon Dioxide 21 mEq/L (23-29) L 08/07/19 01:19 BUN 52 mg/dL (6-20) H 08/08/19 00:16 Creatinine 2.11 mg/dL (0.70-1.30) H 08/08/19 00:16 Est GFR ( Amer) 39 (> 60) L 08/08/19 00:16 Est GFR (Non-Af Amer) 32 (> 60) L 08/08/19 00:16 BUN/Creatinine Ratio 27 (6-26) H 08/06/19 05:14 Glucose 229 mg/dL (70-105) H 08/08/19 00:16 POC Glucose 348 mg/dL (70-99) H 08/07/19 20:58 Uric Acid 8.0 mg/dL (2.3-7.6) H 08/06/19 05:14 Calcium 7.8 mg/dL (8.6-10.3) L 08/08/19 00:16 Alkaline Phosphatase 116 Units/L (34-104) H 08/07/19 15:53 Serum Total Protein 6.1 g/dL (6.4-8.9) L 08/07/19 15:53 HDL Cholesterol 35 mg/dL (40-59) L 08/05/19 02:30 25-OH Vitamin D Total 14 ng/mL (30-80) L 08/06/19 05:14 Urine Glucose (UA) 100 mg/dL (Normal) H 08/05/19 14:10 Microalb/Creat Ratio 131 mcg/mg (Less than 30) H 08/05/19 14:18 Protein/Creatinin Ratio 0.48 mg/mg (0.00-0.20) H 08/05/19 14:18 Rheumatoid Factor 15 IU/mL (Less than 14) H 08/06/19 05:14 Complement C3 60 mg/dL (87-200) L 08/06/19 05:14 Complement C4 18 mg/dL (19-52) L 08/06/19 05:14 Crossmatch See Detail 08/07/19 04:23 Consult Discharge Plan - Plan Referrals: NONE,PCP [Primary Care Provider] -
[2019-08-08 11:04] LABS: ANA IgG by ELISA DETECTED (None Detected); Serine Protease-3 Antibody 2 AU/mL (0-19)
[2019-08-08] MEDS ORDERED: 0.9 % Sodium Chloride 250 ML ONE (11:09)
[2019-08-08 13:16] LABS: Kappa Qnt Free Light Chains 13.2 mg/dL (0.33-1.94); Lambda Qnt Free Light Chains 6.77 mg/dL (0.57-2.63)
--- NOTE | 2019-08-08 14:40 | Event Note ---
Date of Encounter: 08/08/19 Time of Encounter: 09:00 to serve as attending attestation pending completion of resident Discharge Summary I examined this patient and my medical decision-making was reviewed with the Resident Physician Dr Verma. I agree with the documented findings, disposition and treatment plan as described except to the extent set forth below. Mr Moore is admitted for PRANAV on CKD from inpt psych unit. He was noted this admission to have chronic anemia and with slow downtrend this admit he did receive prbc transfusions. His disposition as determined by psychiatry is to outpt setting, no longer requiring inpt psych services. He was set to go to SNF as recommended however, pt then declined and is being discharged to home with [facility] awake, pleasant, no complaints. denies any sob, dizziness, palpitations or chest pain. Denies bleeding in urine or bms. Denies si/hi. gen- alert, awake,appears stated age cv- reg rate and rhythm, no jvd lungs- ctabl, normal resp effort neuro- AAOxperson, place situation PRANAV on CKD, improved w IVFs- resume acei + lasix on dc, nephro signed off, fu w Dr Manuel in 4-6w, check bmp in one week then two weeks prior to appt, renal diet on dc Depression without SI/HI- appreciate psych eval;, does NOT require abram pscyh on dc, cont lexapro, outpt fu Incidental elevated RF on Nephro lab work up- outpt fu with pcp Acute on Chronic anemia without overt bleeding and with hemodynamic stability- s/p 1 unit prbc with response greater than expected yesterday, hgbs have remained at his low 7s baseline s/p transfusion, will give addl unit prior to dc given his cardiac history and needs outpt fu and further work up of chronic anemia without overt bleeding Abnormal tele intermittently- has pacer and AICD, is DNR CCA DNI code status, cont home BB, has known significant HFrEF EF 15% and will need to fu on dc Chronic hyponatremia at baseline Hyperkalemia intermittently this admit- s/p kayexalate and ca gluconate, renal diet on dc bmp and nephro fu as above further dx and plan as noted by resident time spent on dc 50 min
[2019-08-08 15:41] LABS: Hemoglobin 8.5 g/dL (12.9-16.9)
[2019-08-08 16:01] VITALS: BP 124/64
--- NOTE | 2019-08-08 16:17 | Physician Discharge Referral ---
<Agustín Verma S - Last Filed: 08/08/19 16:18> Home Health/Hosp Referral Info Transfer to: Home Health Attending Provider: Yvrose Provider in Charge Post Discharge: PCP - Diagnosis (1) Hyperkalemia Priority: Primary Status: Acute (2) Suicidal ideation Priority: Primary Status: Resolved (3) Diabetes mellitus Priority: Secondary Status: Chronic (4) HFrEF (heart failure with reduced ejection fraction) Priority: Secondary Status: Chronic (5) CKD (chronic kidney disease) stage 4, GFR 15-29 ml/min Priority: Secondary Status: Chronic (6) Irregular cardiac rhythm Priority: Secondary Status: Suspected (7) Anemia Priority: Secondary Status: Chronic (8) Diabetic foot ulcer Priority: Secondary Status: Acute - Respiratory Orders Smoking Cessation: Smoking cessation has been advised. For more information, call the [place] Tobacco Quit Line at 2-034-MRLR-NOW. - Diet/Nutrition Diet/Nutrition Orders: Renal, Cardiac, No Concentrated Sweets - Activity Activity Orders: Up ad shai - Services Needed Following services are medically necessary services: Nursing, Physical Therapy, Occupational Therapy - Transfer Medications Prescriptions: Escitalopram [Lexapro] 20 mg PO DAILY 14 Days #14 tablet Transmission Status: Received by [facility] traZODone [TraZODone] 50 mg PO HS PRN 14 Days #14 tablet PRN Reason: Insomnia Transmission Status: Received by [facility] Home Medications: Atorvastatin [Lipitor] 10 mg PO DAILY 08/05/19 [History] Furosemide [Lasix] 20 mg PO BID 08/05/19 [History] Insulin ASPART [Novolog Flexpen] 0 units SQ TIDWM MDD 40 units/day 08/05/19 [History] Insulin Degludec [Tresiba Flextouch U-200] 15 units SQ HS 08/05/19 [History] Lisinopril [Zestril] 5 mg PO DAILY 08/05/19 [History] Metoprolol Succinate [Toprol Xl] 25 mg PO DAILY 08/05/19 [History] PHENobarbital [Phenobarbital] 16.2 mg PO DAILY 08/05/19 [History] Tamsulosin HCl [Flomax] 0.4 mg PO BID 08/05/19 [History] levETIRAcetam [Roweepra] 500 mg PO BID 08/05/19 [History] raNITIdine HCl [Zantac] 150 mg PO BID 08/05/19 [History] Escitalopram [Lexapro] 20 mg PO DAILY 14 Days #14 tablet 08/08/19 [Rx] traZODone [TraZODone] 50 mg PO HS PRN 14 Days #14 tablet 08/08/19 [Rx] Allergies/Adverse Reactions: Allergy/AdvReac Type Severity Reaction Status Date / Time No Known Allergies Allergy Verified 08/03/19 15:44 Certification: Further, I certify that my clinical findings support that this patient is homebound (i.e. absences from home require considerable and taxing effort and are for medical reasons or pentecostalism services or infrequently or short duration when for other reasons) because: Homebound Reason: Severity of cardiac or pulmonary status limits activity tolerance Attestation: My signature below is to certify that this patient is under my care and that I, or nurse practitioner, or a physician's casino assistant manager working with me, has a [id number] encounter with this patient. <Dorothy Frances - Last Filed: 08/08/19 18:20> - Diagnosis (1) Hyperkalemia Status: Acute (2) CKD (chronic kidney disease) stage 4, GFR 15-29 ml/min Status: Chronic (3) Diabetes mellitus Status: Chronic (4) Seizure disorder Status: Chronic (5) Suicidal ideation Status: Resolved (6) Anemia Status: Chronic (7) HFrEF (heart failure with reduced ejection fraction) Status: Chronic (8) Severe protein-calorie malnutrition Status: Chronic - Respiratory Orders Smoking Cessation: Smoking cessation has been advised. For more information, call the [place] Tobacco Quit Line at 3-206-UUYO-NOW. Other Treatments: BMP in one week BMP in 4 weeks Certification: Further, I certify that my clinical findings support that this patient is homebound (i.e. absences from home require considerable and taxing effort and are for medical reasons or pentecostalism services or infrequently or short duration when for other reasons) because: Homebound Reason: Patient requires assistance of a person or device to safely leave home, Leaving home requires considerable and taxing effort due to condition Attestation: My signature below is to certify that this patient is under my care and that I, or nurse practitioner, or a physician's casino assistant manager working with me, has a [id number] encounter with this patient.
--- NOTE | 2019-08-08 17:51 | Electrocardiograph Report ---
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
[2019-08-09 02:40] LABS: Alpha 2 Globulin (PEP) 0.48 g/dL (0.48-1.05); Beta Globulin (PEP) 0.56 g/dL (0.48-1.10)
[2019-08-09 09:21] LABS: ANA HEp-2 IgG IFA DETECTED (<1:80)
[2019-08-09 09:22] LABS: Anti Nuclear Ab Pattern SPECKLED
[2019-08-09 10:31] LABS: IFE Reflexed NOT DONE
== END 2019-08-08 17:55 | disposition home health service (06) ==
LOC: 2ANU → SUATTDRO 14:51
PROVIDERS: ADMIT Internal Medicine; ATTEND Internal Medicine

== ENCOUNTER 2019-11-25 23:47 | Observation (INO) ==
[2019-11-26 01:37] LABS: Calcium 8.9 mg/dL (8.6-10.3); Potassium 4.9 mEq/L (3.5-5.1)
[2019-11-26] MEDS ORDERED: 0.9 % Sodium Chloride 1,000 ML ONE (04:47)
[2019-11-26] MEDS ORDERED: 0.9 % Sodium Chloride 1,000 ML IV ONE (05:12)
[2019-11-26] MEDS ORDERED: Naloxone 0.4 MG/ML INJ IVP PRN (06:24)
[2019-11-26] MEDS ORDERED: Ondansetron 4 MG/2 ML VIAL IVP PRN (07:28)
[2019-11-26] MEDS: Famotidine 20 MG TABLET PO SCH (09:35)
[2019-11-26] MEDS: Metoprolol XL (24 HR) Succ 25 MG TAB.ER.24H PO SCH (09:35)
[2019-11-26] MEDS: levETIRAcetam 250 MG TABLET PO SCH ×2 (09:35→20:29)
[2019-11-26 10:50] LABS: Calcium 8.7 mg/dL (8.6-10.3); Potassium 5.1 mEq/L (3.5-5.1)
[2019-11-26] MEDS ORDERED: Dextrose Gel 15 GM/37.5 ML TUBE PO PRN ×2 (10:54)
[2019-11-26] MEDS ORDERED: *HR* Dextrose 50 % in Water (Syg) 50 ML SYRINGE IVP PRN (10:54)
[2019-11-26] MEDS ORDERED: D5% in Water 1,000 ML IVC PRN (10:54)
[2019-11-26] MEDS ORDERED: Insulin LISPRO 300 UNITS/3 ML VIAL SQ SCH ×3 (11:30→21:00)
[2019-11-26] MEDS ORDERED: Insulin LISPRO 300 UNITS/3 ML VIAL SQ ONE (13:27)
[2019-11-26] MEDS: Acetaminophen 325 MG TABLET PO PRN (20:30)
[2019-11-27 02:16] LABS: Hematocrit 27.5 % (37.5-50.1); Immature Platelets 6.3 % (1.1-6.1); Mean Corpuscular HGB Conc 32.7 g/dL (31.6-35.5); Mean Corpuscular Hemoglobin 32.4 pg (28.0-33.3); Mean Corpuscular Volume 98.9 fL (83.0-100.0); Mean Platelet Volume 12.4 fL (9.4-12.4); Red Blood Count 2.78 M/mcL (4.19-5.50); Red Cell Distribution Width 15.8 % (11.5-14.5); White Blood Count 8.1 K/mcL (4.3-11.1)
[2019-11-27 02:37] LABS: Calcium 8.9 mg/dL (8.6-10.3); Magnesium 2.3 mg/dL (1.6-2.6); Phosphorous 3.3 mg/dL (2.7-4.5); Potassium 5.4 mEq/L (3.5-5.1)
[2019-11-27] MEDS ORDERED: INSULIN DEGLUDEC 10 UNIT SQ SCH (09:00)
[2019-11-27] MEDS: Famotidine 20 MG TABLET PO SCH (10:26)
[2019-11-27] MEDS: Metoprolol XL (24 HR) Succ 25 MG TAB.ER.24H PO SCH (10:26)
[2019-11-27] MEDS: levETIRAcetam 250 MG TABLET PO SCH ×2 (10:26→21:27)
[2019-11-27] MEDS: Insulin LISPRO 300 UNITS/3 ML VIAL SQ SCH ×3 (10:27→16:37)
[2019-11-27] MEDS: Insulin DETEMIR 100 UNIT/ML X5UNITS SQ SCH (10:30)
[2019-11-27] MEDS: Acetaminophen 325 MG TABLET PO PRN (10:30)
[2019-11-27 15:32] LABS: Calcium 8.8 mg/dL (8.6-10.3); Potassium 5.3 mEq/L (3.5-5.1)
[2019-11-28] MEDS: Acetaminophen 325 MG TABLET PO PRN (02:37)
[2019-11-28 05:11] LABS: Calcium 8.9 mg/dL (8.6-10.3); Potassium 6.1 mEq/L (3.5-5.1)
[2019-11-28] MEDS: Famotidine 20 MG TABLET PO SCH (08:16)
[2019-11-28] MEDS: levETIRAcetam 250 MG TABLET PO SCH (08:16)
[2019-11-28] MEDS: Insulin DETEMIR 100 UNIT/ML X5UNITS SQ SCH (08:17)
[2019-11-28] MEDS: Metoprolol XL (24 HR) Succ 25 MG TAB.ER.24H PO SCH (08:17)
[2019-11-28] MEDS: Insulin LISPRO 300 UNITS/3 ML VIAL SQ SCH ×2 (08:17→12:03)
[2019-11-28 14:06] LABS: Calcium 9.3 mg/dL (8.6-10.3); Potassium 4.9 mEq/L (3.5-5.1)
[2019-11-28] MEDS ORDERED: FLU Vac QV 19-20 (6Month+)/PF 0.5 ML SYRINGE IM ONE (15:04)
[2019-11-28 15:23] VITALS: BP 121/64
== END 2019-11-28 16:46 ==
LOC: 3ANU 23:47 → EMEROOARM 23:47 → SUATTDRO 11-26 05:48 → 3ANU 11-26 06:13
PROVIDERS: ADMIT Internal Medicine; ATTEND Internal Medicine

== ENCOUNTER 2019-12-29 11:57 | Inpatient (IN) ==
[2019-12-29 13:01] LABS: Basophils # 0.1 K/mcL (0.0-0.2); Basophils % 1.5 %; Eosinophils # 0.1 K/mcL (0.0-0.6); Eosinophils % 3.1 %; Hematocrit 28.1 % (37.5-50.1); Hemoglobin 8.8 g/dL (12.9-16.9); Immature Granulocytes % 0.4 % (0-4); Lymphocytes # 0.8 K/mcL (0.6-4.6); Lymphocytes % 16.8 %; Mean Corpuscular HGB Conc 31.3 g/dL (31.6-35.5); Mean Corpuscular Hemoglobin 31.3 pg (28.0-33.3); Mean Platelet Volume 12.9 fL (9.4-12.4); Monocytes # 0.6 K/mcL (0.0-1.3); Monocytes % 12.2 %; Platelet Count 118 K/mcL (140-400); Red Blood Count 2.81 M/mcL (4.19-5.50); Red Cell Distribution Width 15.3 % (11.5-14.5); White Blood Count 4.6 K/mcL (4.3-11.1)
[2019-12-29 13:20] LABS: BUN/Creatinine Ratio 32 (6-26); Blood Urea Nitrogen 59 mg/dL (6-20); Calcium 8.7 mg/dL (8.6-10.3); Carbon Dioxide 26 mEq/L (23-29); Chloride 107 mEq/L (98-107); Glucose 75 mg/dL (70-105); Osmolality,Calculated 303 (280-300); Potassium 4.6 mEq/L (3.5-5.1); Sodium 139 mEq/L (136-145); eGFR For African Americans 46 (> 60); eGFR For Non-African Americans 38 (> 60)
[2019-12-29 13:21] LABS: Troponin I < 0.03 ng/mL (< 0.04)
[2019-12-29] MEDS ORDERED: Furosemide 20 MG/2 ML VIAL IVP ONE ×2 (14:44→16:23)
[2019-12-29] MEDS ORDERED: Naloxone 0.4 MG/ML INJ IVP PRN (15:12)
[2019-12-29] MEDS ORDERED: D5% in Water 1,000 ML IVC PRN (15:15)
[2019-12-29] MEDS ORDERED: *HR* Dextrose 50 % in Water (Syg) 50 ML SYRINGE IVP PRN (15:15)
[2019-12-29] MEDS ORDERED: Dextrose Gel 15 GM/37.5 ML TUBE PO PRN ×2 (15:15)
[2019-12-29] MEDS ORDERED: LOPERAMIDE 2 MG PO PRN (16:31)
[2019-12-29] MEDS ORDERED: Ondansetron ODT 4 MG TAB.RAPDIS PO PRN (16:31)
[2019-12-29] MEDS: Insulin LISPRO 300 UNITS/3 ML VIAL SQ SCH (16:35)
[2019-12-29 18:18] LABS: Bilirubin,Urine Negative (Negative); Blood,Urine Negative (Negative); Clarity,Urine Clear (Clear); Color,Urine Yellow (Yellow); Glucose,Urine (UA) Normal (Normal); Ketones,Urine Negative (Negative); Leukocyte Esterase,Urine Negative (Negative); Nitrite,Urine Negative (Negative); Protein,Urine Negative (Neg-Trace); Specific Gravity,Urine 1.013 (1.010-1.025); Urobilinogen,Urine Normal (Normal)
[2019-12-29] MEDS ORDERED: Melatonin 3 MG TABLET PO PRN (21:00)
[2019-12-29] MEDS ORDERED: PHENobarbitaL 32.4 MG TABLET PO SCH (21:00)
[2019-12-29] MEDS: levETIRAcetam 250 MG TABLET PO SCH (21:23)
[2019-12-29] MEDS: traZODone 50 MG TABLET PO SCH (21:23)
[2019-12-29] MEDS: *HR* Heparin 5,000 UNIT/ML VIAL SQ SCH (21:23)
[2019-12-29] MEDS: Famotidine 20 MG TABLET PO SCH (21:23)
[2019-12-29] MEDS: risperiDONE 1 MG TABLET PO SCH (21:23)
[2019-12-29] MEDS ORDERED: Insulin DETEMIR 100 UNIT/ML X5UNITS SQ SCH (21:30)
[2019-12-30] MEDS: *HR* Heparin 5,000 UNIT/ML VIAL SQ SCH ×3 (05:26→21:06)
[2019-12-30 05:49] LABS: Basophils # 0.1 K/mcL (0.0-0.2); Eosinophils # 0.1 K/mcL (0.0-0.6); Eosinophils % 1.4 %; Hematocrit 25.9 % (37.5-50.1); Hemoglobin 8.3 g/dL (12.9-16.9); Immature Granulocytes % 0.6 % (0-4); Lymphocytes # 0.8 K/mcL (0.6-4.6); Lymphocytes % 15.5 %; Mean Corpuscular Hemoglobin 31.3 pg (28.0-33.3); Mean Corpuscular Volume 97.7 fL (83.0-100.0); Mean Platelet Volume 12.6 fL (9.4-12.4); Monocytes # 0.5 K/mcL (0.0-1.3); Monocytes % 10.8 %; Neutrophils # 3.6 K/mcL (1.6-8.9); Platelet Count 115 K/mcL (140-400); Red Blood Count 2.65 M/mcL (4.19-5.50); Red Cell Distribution Width 15.7 % (11.5-14.5); Segmented Neutrophils % 70.7 %
[2019-12-30 06:04] LABS: Calcium 8.4 mg/dL (8.6-10.3); Potassium 4.5 mEq/L (3.5-5.1)
[2019-12-30] MEDS: Insulin LISPRO 300 UNITS/3 ML VIAL SQ SCH ×3 (07:11→17:35)
[2019-12-30] MEDS ORDERED: Melatonin 3 MG TABLET PO PRN (08:09)
[2019-12-30] MEDS ORDERED: RISPERIDONE 2 MG PO SCH (09:00)
[2019-12-30] MEDS ORDERED: LEVETIRACETAM 500 MG PO SCH (09:00)
[2019-12-30] MEDS: levETIRAcetam 250 MG TABLET PO SCH ×2 (09:01→21:06)
[2019-12-30] MEDS: Famotidine 20 MG TABLET PO SCH (09:01)
[2019-12-30] MEDS: risperiDONE 1 MG TABLET PO SCH ×2 (09:01→21:06)
[2019-12-30] MEDS: Furosemide 40 MG/4 ML VIAL IVP SCH (09:01)
[2019-12-30] MEDS: Insulin DETEMIR 100 UNIT/ML X5UNITS SQ SCH (09:02)
[2019-12-30] MEDS: Zinc Sulfate 220 MG CAPSULE PO SCH (09:02)
[2019-12-30] MEDS: Metoprolol XL (24 HR) Succ 25 MG TAB.ER.24H PO SCH (09:02)
[2019-12-30] MEDS: Acetaminophen 325 MG TABLET PO PRN (09:07)
[2019-12-30] MEDS: Multivit/Ca/Min/Fe/FA 1 TAB TABLET PO SCH (10:13)
[2019-12-30] MEDS ORDERED: Perflutren Lipid Microsphere 1.3 ML in 0.9 % Sodium Chloride 8.7 ML IVP ONE (11:46)
[2019-12-30] MEDS: traZODone 50 MG TABLET PO SCH (21:06)
[2019-12-31 04:37] LABS: Basophils # 0.1 K/mcL (0.0-0.2); Basophils % 1.5 %; Eosinophils # 0.2 K/mcL (0.0-0.6); Eosinophils % 3.1 %; Hematocrit 27.5 % (37.5-50.1); Hemoglobin 8.7 g/dL (12.9-16.9); Immature Granulocytes % 0.4 % (0-4); Lymphocytes # 1.1 K/mcL (0.6-4.6); Lymphocytes % 22.4 %; Mean Corpuscular HGB Conc 31.6 g/dL (31.6-35.5); Mean Corpuscular Hemoglobin 31.9 pg (28.0-33.3); Mean Corpuscular Volume 100.7 fL (83.0-100.0); Mean Platelet Volume 12.8 fL (9.4-12.4); Monocytes # 0.5 K/mcL (0.0-1.3); Monocytes % 11.3 %; Neutrophils # 2.9 K/mcL (1.6-8.9); Platelet Count 108 K/mcL (140-400); Red Blood Count 2.73 M/mcL (4.19-5.50); Red Cell Distribution Width 15.6 % (11.5-14.5); Segmented Neutrophils % 61.3 %; White Blood Count 4.8 K/mcL (4.3-11.1)
[2019-12-31 04:59] LABS: Calcium 8.4 mg/dL (8.6-10.3); Potassium 4.5 mEq/L (3.5-5.1)
[2019-12-31] MEDS: *HR* Heparin 5,000 UNIT/ML VIAL SQ SCH ×3 (05:59→21:14)
[2019-12-31] MEDS: Insulin LISPRO 300 UNITS/3 ML VIAL SQ SCH ×3 (08:02→16:18)
[2019-12-31] MEDS: Insulin DETEMIR 100 UNIT/ML X5UNITS SQ SCH (08:06)
[2019-12-31] MEDS: Furosemide 40 MG/4 ML VIAL IVP SCH (08:07)
[2019-12-31] MEDS: Zinc Sulfate 220 MG CAPSULE PO SCH (08:07)
[2019-12-31] MEDS: Metoprolol XL (24 HR) Succ 25 MG TAB.ER.24H PO SCH (08:07)
[2019-12-31] MEDS: Famotidine 20 MG TABLET PO SCH (08:07)
[2019-12-31] MEDS: Acetaminophen 325 MG TABLET PO PRN (08:07)
[2019-12-31] MEDS: risperiDONE 1 MG TABLET PO SCH ×2 (08:07→21:13)
[2019-12-31] MEDS: Multivit/Ca/Min/Fe/FA 1 TAB TABLET PO SCH (08:07)
[2019-12-31] MEDS: levETIRAcetam 250 MG TABLET PO SCH ×2 (08:07→21:13)
[2019-12-31] MEDS ORDERED: Sennosides/Docusate Sodium TABLET PO ONE (10:23)
[2019-12-31] MEDS: traZODone 50 MG TABLET PO SCH (21:14)
[2020-01-01] MEDS: *HR* Heparin 5,000 UNIT/ML VIAL SQ SCH ×3 (05:38→21:31)
[2020-01-01 06:14] LABS: Basophils % 1.1 %; Hematocrit 28.5 % (37.5-50.1)
[2020-01-01 06:16] LABS: Basophils # 0.1 K/mcL (0.0-0.2); Eosinophils # 0.2 K/mcL (0.0-0.6); Eosinophils % 3.2 %; Hemoglobin 8.8 g/dL (12.9-16.9); Immature Granulocytes % 0.2 % (0-4); Immature Platelets 6.9 % (1.1-6.1); Lymphocytes % 22.7 %; Mean Corpuscular HGB Conc 30.9 g/dL (31.6-35.5); Mean Corpuscular Hemoglobin 31.8 pg (28.0-33.3); Mean Corpuscular Volume 102.9 fL (83.0-100.0); Monocytes # 0.5 K/mcL (0.0-1.3); Monocytes % 9.9 %; Neutrophils # 2.9 K/mcL (1.6-8.9); Platelet Count 102 K/mcL (140-400); Red Blood Count 2.77 M/mcL (4.19-5.50); Red Cell Distribution Width 15.7 % (11.5-14.5); Segmented Neutrophils % 62.9 %; White Blood Count 4.6 K/mcL (4.3-11.1)
[2020-01-01 06:40] LABS: BUN/Creatinine Ratio 31 (6-26); Blood Urea Nitrogen 63 mg/dL (6-20); Calcium 8.5 mg/dL (8.6-10.3); Carbon Dioxide 25 mEq/L (23-29); Chloride 106 mEq/L (98-107); Glucose 202 mg/dL (70-105); Osmolality,Calculated 314 (280-300); Potassium 4.7 mEq/L (3.5-5.1); Sodium 140 mEq/L (136-145); eGFR For African Americans 41 (> 60); eGFR For Non-African Americans 34 (> 60)
[2020-01-01] MEDS: Sennosides/Docusate Sodium TABLET PO SCH (08:04)
[2020-01-01] MEDS: Famotidine 20 MG TABLET PO SCH (08:04)
[2020-01-01] MEDS: levETIRAcetam 250 MG TABLET PO SCH ×2 (08:04→21:30)
[2020-01-01] MEDS: Zinc Sulfate 220 MG CAPSULE PO SCH (08:04)
[2020-01-01] MEDS: Furosemide 40 MG/4 ML VIAL IVP SCH (08:05)
[2020-01-01] MEDS: risperiDONE 1 MG TABLET PO SCH ×2 (08:05→21:30)
[2020-01-01] MEDS: Multivit/Ca/Min/Fe/FA 1 TAB TABLET PO SCH (08:05)
[2020-01-01] MEDS: Metoprolol XL (24 HR) Succ 25 MG TAB.ER.24H PO SCH (08:05)
[2020-01-01] MEDS: Insulin DETEMIR 100 UNIT/ML X5UNITS SQ SCH (08:13)
[2020-01-01] MEDS: Acetaminophen 325 MG TABLET PO PRN (08:16)
[2020-01-01] MEDS: Insulin LISPRO 300 UNITS/3 ML VIAL SQ SCH ×3 (08:17→17:23)
[2020-01-01 08:33] LABS: INR 1.3; Prothrombin Time 14.2 Seconds (9.4-12.1)
[2020-01-01 15:12] LABS: LDH,Pleural Fluid 59 Units/L (No Ref Range); Total Protein,Pleural Fluid < 3.0 g/dL
[2020-01-01 15:24] LABS: Lactate Dehydrogenase 137 Units/L (140-271); Total Protein 5.9 g/dL (6.4-8.9)
[2020-01-01 15:54] LABS: RBC,Pleural Fluid < 0.002 M/mcL
[2020-01-01 16:28] LABS: Appearance of Pleural Fl Clear (Clear)
[2020-01-01] MEDS: traZODone 50 MG TABLET PO SCH (21:30)
[2020-01-02 05:04] LABS: Mean Platelet Volume 12.6 fL (9.4-12.4)
[2020-01-02 05:06] LABS: Hematocrit 28.6 % (37.5-50.1); Immature Platelets 7.4 % (1.1-6.1); Mean Corpuscular HGB Conc 31.5 g/dL (31.6-35.5); Mean Corpuscular Hemoglobin 31.6 pg (28.0-33.3); Mean Corpuscular Volume 100.4 fL (83.0-100.0); Red Blood Count 2.85 M/mcL (4.19-5.50); Red Cell Distribution Width 15.7 % (11.5-14.5); White Blood Count 5.1 K/mcL (4.3-11.1)
[2020-01-02 05:25] LABS: Albumin 3.1 g/dL (3.5-5.7); Bilirubin,Total 0.4 mg/dL (0.3-1.0); Calcium 8.3 mg/dL (8.6-10.3); Potassium 4.9 mEq/L (3.5-5.1); Total Protein 6.1 g/dL (6.4-8.9)
[2020-01-02] MEDS: *HR* Heparin 5,000 UNIT/ML VIAL SQ SCH ×3 (05:36→20:28)
[2020-01-02] MEDS ORDERED: Furosemide 40 MG/4 ML VIAL IVP SCH (09:00)
[2020-01-02] MEDS ORDERED: Furosemide 40 MG TABLET PO SCH (09:00)
[2020-01-02] MEDS: Insulin LISPRO 300 UNITS/3 ML VIAL SQ SCH ×3 (09:26→16:28)
[2020-01-02] MEDS: Metoprolol XL (24 HR) Succ 25 MG TAB.ER.24H PO SCH (09:27)
[2020-01-02] MEDS: risperiDONE 1 MG TABLET PO SCH ×2 (09:27→20:29)
[2020-01-02] MEDS: Zinc Sulfate 220 MG CAPSULE PO SCH (09:27)
[2020-01-02] MEDS: levETIRAcetam 250 MG TABLET PO SCH ×2 (09:27→20:29)
[2020-01-02] MEDS: Sennosides/Docusate Sodium TABLET PO SCH (09:27)
[2020-01-02] MEDS: Famotidine 20 MG TABLET PO SCH (09:27)
[2020-01-02] MEDS: Multivit/Ca/Min/Fe/FA 1 TAB TABLET PO SCH (09:27)
[2020-01-02] MEDS: Insulin DETEMIR 100 UNIT/ML X5UNITS SQ SCH (09:27)
[2020-01-02] MEDS: Furosemide 40 MG/4 ML VIAL IVP SCH ×2 (09:27→20:27)
[2020-01-02] MEDS: traZODone 50 MG TABLET PO SCH (20:29)
[2020-01-02 21:34] LABS: Basophils,Peritoneal Fluid 0 %; Eosinophils,Peritoneal Fluid 0 %
[2020-01-02 21:36] LABS: Appearance of Peritoneal Fl CLOUDY (Clear)
[2020-01-03] MEDS: *HR* Heparin 5,000 UNIT/ML VIAL SQ SCH (05:06)
[2020-01-03 05:42] LABS: Hematocrit 27.4 % (37.5-50.1); Hemoglobin 8.7 g/dL (12.9-16.9); Immature Platelets 8.5 % (1.1-6.1); Mean Corpuscular HGB Conc 31.8 g/dL (31.6-35.5); Mean Corpuscular Hemoglobin 31.6 pg (28.0-33.3); Mean Corpuscular Volume 99.6 fL (83.0-100.0); Mean Platelet Volume 12.7 fL (9.4-12.4); Red Blood Count 2.75 M/mcL (4.19-5.50); Red Cell Distribution Width 15.6 % (11.5-14.5)
[2020-01-03 06:13] LABS: Albumin 2.9 g/dL (3.5-5.7); Bilirubin,Total 0.3 mg/dL (0.3-1.0); Calcium 8.3 mg/dL (8.6-10.3); Globulin 2.9 g/dL (2.4-3.5); Potassium 4.8 mEq/L (3.5-5.1); Total Protein 5.8 g/dL (6.4-8.9)
[2020-01-03] MEDS: Insulin LISPRO 300 UNITS/3 ML VIAL SQ SCH ×3 (08:35→17:26)
[2020-01-03] MEDS: Metoprolol XL (24 HR) Succ 25 MG TAB.ER.24H PO SCH (09:56)
[2020-01-03] MEDS: Famotidine 20 MG TABLET PO SCH (09:56)
[2020-01-03] MEDS: Multivit/Ca/Min/Fe/FA 1 TAB TABLET PO SCH (09:56)
[2020-01-03] MEDS: Zinc Sulfate 220 MG CAPSULE PO SCH (09:56)
[2020-01-03] MEDS: Furosemide 60 MG in 0.9 % Sodium Chloride 50 ML IV SCH ×2 (09:57→20:04)
[2020-01-03] MEDS: levETIRAcetam 250 MG TABLET PO SCH ×2 (09:57→20:04)
[2020-01-03] MEDS: risperiDONE 1 MG TABLET PO SCH ×2 (09:57→20:04)
[2020-01-03] MEDS: Insulin DETEMIR 100 UNIT/ML X5UNITS SQ SCH (09:58)
[2020-01-03] MEDS: Sennosides/Docusate Sodium TABLET PO SCH (10:00)
[2020-01-03] MEDS: traZODone 50 MG TABLET PO SCH (20:04)
[2020-01-04 07:26] LABS: Hematocrit 28.7 % (37.5-50.1); Hemoglobin 8.7 g/dL (12.9-16.9); Immature Platelets 7.4 % (1.1-6.1); Mean Corpuscular HGB Conc 30.3 g/dL (31.6-35.5); Mean Corpuscular Hemoglobin 31.9 pg (28.0-33.3); Mean Corpuscular Volume 105.1 fL (83.0-100.0); Red Blood Count 2.73 M/mcL (4.19-5.50); White Blood Count 5.3 K/mcL (4.3-11.1)
[2020-01-04 07:47] LABS: Albumin 3.1 g/dL (3.5-5.7); Bilirubin,Total 0.3 mg/dL (0.3-1.0); Calcium 8.5 mg/dL (8.6-10.3); Globulin 3.1 g/dL (2.4-3.5); Potassium 5.2 mEq/L (3.5-5.1); Total Protein 6.2 g/dL (6.4-8.9)
[2020-01-04] MEDS: Insulin LISPRO 300 UNITS/3 ML VIAL SQ SCH ×3 (08:41→17:22)
[2020-01-04] MEDS: Multivit/Ca/Min/Fe/FA 1 TAB TABLET PO SCH (08:42)
[2020-01-04] MEDS: Metoprolol XL (24 HR) Succ 25 MG TAB.ER.24H PO SCH (08:43)
[2020-01-04] MEDS: Zinc Sulfate 220 MG CAPSULE PO SCH (08:43)
[2020-01-04] MEDS: Sennosides/Docusate Sodium TABLET PO SCH (08:43)
[2020-01-04] MEDS: levETIRAcetam 250 MG TABLET PO SCH ×2 (08:43→21:33)
[2020-01-04] MEDS: Famotidine 20 MG TABLET PO SCH (08:43)
[2020-01-04] MEDS: risperiDONE 1 MG TABLET PO SCH ×2 (08:43→21:33)
[2020-01-04] MEDS ORDERED: Furosemide 80 MG in 0.9 % Sodium Chloride 50 ML IV SCH (09:00)
[2020-01-04] MEDS: Insulin DETEMIR 100 UNIT/ML X5UNITS SQ SCH (09:06)
[2020-01-04 09:28] LABS: Hematocrit 28.9 % (37.5-50.1); Hemoglobin 8.7 g/dL (12.9-16.9); Mean Corpuscular HGB Conc 30.1 g/dL (31.6-35.5); Mean Corpuscular Hemoglobin 31.5 pg (28.0-33.3); Mean Corpuscular Volume 104.7 fL (83.0-100.0); Platelet Count 88 K/mcL (140-400); Red Blood Count 2.76 M/mcL (4.19-5.50); Red Cell Distribution Width 15.9 % (11.5-14.5); White Blood Count 5.3 K/mcL (4.3-11.1)
[2020-01-04 09:54] LABS: Calcium 8.5 mg/dL (8.6-10.3); Potassium 5.3 mEq/L (3.5-5.1)
[2020-01-04] MEDS: *HR* Rivaroxaban 15 MG TABLET PO SCH (17:22)
[2020-01-04] MEDS: traZODone 50 MG TABLET PO SCH (21:33)
[2020-01-05 03:56] LABS: Hemoglobin 8.8 g/dL (12.9-16.9); Red Cell Distribution Width 15.9 % (11.5-14.5)
[2020-01-05 03:57] LABS: Hematocrit 27.8 % (37.5-50.1); Immature Platelets 7.1 % (1.1-6.1); Mean Corpuscular HGB Conc 31.7 g/dL (31.6-35.5); Mean Corpuscular Volume 101.1 fL (83.0-100.0); Mean Platelet Volume 12.5 fL (9.4-12.4); Red Blood Count 2.75 M/mcL (4.19-5.50)
[2020-01-05 04:13] LABS: Calcium 8.5 mg/dL (8.6-10.3); Potassium 5.4 mEq/L (3.5-5.1)
[2020-01-05] MEDS: Acetaminophen 325 MG TABLET PO PRN (06:37)
[2020-01-05] MEDS: levETIRAcetam 250 MG TABLET PO SCH ×2 (08:36→21:26)
[2020-01-05] MEDS: Insulin LISPRO 300 UNITS/3 ML VIAL SQ SCH ×3 (08:36→16:51)
[2020-01-05] MEDS: risperiDONE 1 MG TABLET PO SCH ×2 (08:36→21:27)
[2020-01-05] MEDS: Metoprolol XL (24 HR) Succ 25 MG TAB.ER.24H PO SCH (08:37)
[2020-01-05] MEDS: Sennosides/Docusate Sodium TABLET PO SCH (08:37)
[2020-01-05] MEDS: Multivit/Ca/Min/Fe/FA 1 TAB TABLET PO SCH (08:37)
[2020-01-05] MEDS: Zinc Sulfate 220 MG CAPSULE PO SCH (08:37)
[2020-01-05] MEDS: Insulin DETEMIR 100 UNIT/ML X5UNITS SQ SCH (08:37)
[2020-01-05] MEDS: Famotidine 20 MG TABLET PO SCH (08:37)
[2020-01-05] MEDS ORDERED: Furosemide 40 MG/4 ML VIAL IVP ONE (12:00)
[2020-01-05] MEDS: *HR* Rivaroxaban 15 MG TABLET PO SCH (16:52)
[2020-01-05] MEDS: traZODone 50 MG TABLET PO SCH (21:27)
[2020-01-06 01:50] LABS: Calcium 8.5 mg/dL (8.6-10.3); Potassium 5.2 mEq/L (3.5-5.1)
[2020-01-06] MEDS: Famotidine 20 MG TABLET PO SCH (08:09)
[2020-01-06] MEDS: Multivit/Ca/Min/Fe/FA 1 TAB TABLET PO SCH (08:09)
[2020-01-06] MEDS: Insulin LISPRO 300 UNITS/3 ML VIAL SQ SCH ×3 (08:10→16:25)
[2020-01-06] MEDS: Zinc Sulfate 220 MG CAPSULE PO SCH (08:10)
[2020-01-06] MEDS: Metoprolol XL (24 HR) Succ 25 MG TAB.ER.24H PO SCH (08:10)
[2020-01-06] MEDS: risperiDONE 1 MG TABLET PO SCH ×2 (08:10→20:34)
[2020-01-06] MEDS: Insulin DETEMIR 100 UNIT/ML X5UNITS SQ SCH (08:10)
[2020-01-06] MEDS: levETIRAcetam 250 MG TABLET PO SCH ×2 (08:10→20:33)
[2020-01-06] MEDS: Sennosides/Docusate Sodium TABLET PO SCH (08:10)
[2020-01-06] MEDS: traZODone 50 MG TABLET PO SCH (20:34)
[2020-01-07 05:23] LABS: INR 1.2; Prothrombin Time 13.2 Seconds (9.4-12.1)
[2020-01-07 05:38] LABS: BUN/Creatinine Ratio 33 (6-26); Blood Urea Nitrogen 68 mg/dL (6-20); Calcium 8.5 mg/dL (8.6-10.3); Carbon Dioxide 26 mEq/L (23-29); Chloride 106 mEq/L (98-107); Glucose 97 mg/dL (70-105); Osmolality,Calculated 304 (280-300); Sodium 137 mEq/L (136-145); eGFR For African Americans 40 (> 60); eGFR For Non-African Americans 33 (> 60)
[2020-01-07] MEDS: levETIRAcetam 250 MG TABLET PO SCH ×2 (08:53→19:58)
[2020-01-07] MEDS: Metoprolol XL (24 HR) Succ 25 MG TAB.ER.24H PO SCH (08:53)
[2020-01-07] MEDS: Insulin LISPRO 300 UNITS/3 ML VIAL SQ SCH ×5 (08:53→19:32)
[2020-01-07] MEDS: Famotidine 20 MG TABLET PO SCH (08:53)
[2020-01-07] MEDS: risperiDONE 1 MG TABLET PO SCH ×2 (08:53→19:58)
[2020-01-07] MEDS: Multivit/Ca/Min/Fe/FA 1 TAB TABLET PO SCH (08:53)
[2020-01-07] MEDS: Zinc Sulfate 220 MG CAPSULE PO SCH (08:53)
[2020-01-07] MEDS: Sennosides/Docusate Sodium TABLET PO SCH (08:53)
[2020-01-07] MEDS: Insulin DETEMIR 100 UNIT/ML X5UNITS SQ SCH (09:00)
[2020-01-07] MEDS ORDERED: Furosemide 40 MG TABLET PO ONE (10:30)
[2020-01-07] MEDS: *HR* Rivaroxaban 15 MG TABLET PO SCH (16:33)
[2020-01-07 18:05] LABS: Lactate Dehydrogenase 135 Units/L (140-271); Total Protein 5.9 g/dL (6.4-8.9)
[2020-01-07 18:14] LABS: LDH,Pleural Fluid 50 Units/L (No Ref Range); Total Protein,Pleural Fluid < 3.0 g/dL
[2020-01-07] MEDS: traZODone 50 MG TABLET PO SCH (19:58)
[2020-01-07] MEDS: Acetaminophen 325 MG TABLET PO PRN (23:28)
[2020-01-08 06:06] LABS: Hemoglobin 7.9 g/dL (12.9-16.9); White Blood Count 5.3 K/mcL (4.3-11.1)
[2020-01-08 06:08] LABS: Hematocrit 26.3 % (37.5-50.1); Immature Platelets 8.8 % (1.1-6.1); Mean Corpuscular Hemoglobin 30.9 pg (28.0-33.3); Mean Corpuscular Volume 102.7 fL (83.0-100.0); Mean Platelet Volume 12.9 fL (9.4-12.4); Red Blood Count 2.56 M/mcL (4.19-5.50); Red Cell Distribution Width 15.7 % (11.5-14.5)
[2020-01-08 06:26] LABS: Calcium 8.4 mg/dL (8.6-10.3); Potassium 5.9 mEq/L (3.5-5.1)
[2020-01-08] MEDS: Insulin LISPRO 300 UNITS/3 ML VIAL SQ SCH ×7 (08:32→22:08)
[2020-01-08] MEDS: levETIRAcetam 250 MG TABLET PO SCH ×2 (08:41→22:09)
[2020-01-08] MEDS: Sennosides/Docusate Sodium TABLET PO SCH (08:41)
[2020-01-08] MEDS: Insulin DETEMIR 100 UNIT/ML X5UNITS SQ SCH (08:41)
[2020-01-08] MEDS: Furosemide 40 MG TABLET PO SCH (08:41)
[2020-01-08] MEDS: risperiDONE 1 MG TABLET PO SCH ×2 (08:41→22:09)
[2020-01-08] MEDS: Metoprolol XL (24 HR) Succ 25 MG TAB.ER.24H PO SCH (08:41)
[2020-01-08] MEDS: Famotidine 20 MG TABLET PO SCH (08:41)
[2020-01-08] MEDS: Zinc Sulfate 220 MG CAPSULE PO SCH (08:41)
[2020-01-08] MEDS: Multivit/Ca/Min/Fe/FA 1 TAB TABLET PO SCH (08:42)
[2020-01-08] MEDS: *HR* Rivaroxaban 15 MG TABLET PO SCH (16:41)
[2020-01-08] MEDS: traZODone 50 MG TABLET PO SCH (22:09)
[2020-01-08] MEDS: Acetaminophen 325 MG TABLET PO PRN (22:09)
[2020-01-09 05:49] LABS: Mean Corpuscular Volume 104.2 fL (83.0-100.0); Red Cell Distribution Width 15.9 % (11.5-14.5)
[2020-01-09 05:51] LABS: Hematocrit 27.4 % (37.5-50.1); Mean Corpuscular HGB Conc 29.2 g/dL (31.6-35.5); Mean Corpuscular Hemoglobin 30.4 pg (28.0-33.3); Red Blood Count 2.63 M/mcL (4.19-5.50); White Blood Count 5.2 K/mcL (4.3-11.1)
[2020-01-09 06:14] LABS: Calcium 8.3 mg/dL (8.6-10.3); Potassium 5.6 mEq/L (3.5-5.1)
[2020-01-09 06:23] VITALS: BP 102/60
[2020-01-09] MEDS: Insulin LISPRO 300 UNITS/3 ML VIAL SQ SCH ×2 (09:12)
[2020-01-09] MEDS: Zinc Sulfate 220 MG CAPSULE PO SCH (09:13)
[2020-01-09] MEDS: Famotidine 20 MG TABLET PO SCH (09:13)
[2020-01-09] MEDS: Multivit/Ca/Min/Fe/FA 1 TAB TABLET PO SCH (09:13)
[2020-01-09] MEDS: levETIRAcetam 250 MG TABLET PO SCH (09:13)
[2020-01-09] MEDS: Furosemide 40 MG TABLET PO SCH (09:13)
[2020-01-09] MEDS: risperiDONE 1 MG TABLET PO SCH (09:13)
[2020-01-09] MEDS: Metoprolol XL (24 HR) Succ 25 MG TAB.ER.24H PO SCH (09:13)
[2020-01-09] MEDS: Sennosides/Docusate Sodium TABLET PO SCH (09:13)
[2020-01-09] MEDS: Insulin DETEMIR 100 UNIT/ML X5UNITS SQ SCH (09:14)
== END 2020-01-09 11:23 | DRG 194 ==
LOC: EMEROOARM 11:57 → 2ANU 11:57 → SUATTDRO 14:59 → 2ANU 15:41
PROVIDERS: ADMIT Internal Medicine; ATTEND Internal Medicine